=== PATIENT | female | born 1950 | race Caucasian/White ===

== ENCOUNTER 2016-08-12 08:00 | Outpatient (CLI) | payer MEDICARE, MEDICAID | END 2016-08-12 08:01 | disposition home or self-care (01) | DX: Z79.899 Other long term (current) drug therapy (principal) ==

== ENCOUNTER 2016-10-05 09:13 | Outpatient (CLI) | payer MEDICARE, MEDICAID | END 2016-10-05 09:14 | disposition home or self-care (01) | DX: N39.0 Urinary tract infection, site not specified (principal) ==

== ENCOUNTER 2016-11-24 13:48 | Outpatient (CLI) | payer MEDICARE, MEDICAID ==
[2016-11-24 19:27] LABS: BILIRUBIN,URINE NEGATIVE (NEGATIVE); PH,URINE 5.5 PH (5.0-7.5)
[2016-11-24 19:42] LABS: UR CULTURE IF IND INDICATED
== END 2016-11-24 13:49 | disposition home or self-care (01) ==
LOC: LAB.R 13:48
PROVIDERS: ATTEND Nurse Practitioner Gerontology
DX: N39.0 Urinary tract infection, site not specified (principal)
CPT/HCPCS: 81001; 87077; 87086

== ENCOUNTER 2017-05-19 08:00 | Outpatient (CLI) | payer MEDICARE, MEDICAID ==
[2017-05-19 19:15] LABS: BILIRUBIN,TOTAL 0.3 mg/dL (0.2-1.0); BUN - BLOOD UREA NITROGEN 23 mg/dL (6-20); CALCIUM 8.9 mg/dL (8.5-10.3); CARBON DIOXIDE - CO2 27 mmol/L (21-32); CHLORIDE 103 mmol/L (101-111); CHOL/HDL RATIO 4.2 (<4.4); CHOLESTEROL 167 mg/dL; CREATININE 0.8 mg/dL (0.4-1.0); GFR - MDRD 72 (>89); GLUCOSE 76 mg/dL (70-100); HDL CHOLESTEROL 40 mg/dL; LDL/HDL RATIO 2.5 (<4.4); POTASSIUM 4.3 mmol/L (3.5-5.0); SODIUM 137 mmol/L (135-145); TOTAL PROTEIN 6.8 g/dL (6.7-8.2); TRIGLYCERIDES 130 mg/dL; VLDL CHOLESTEROL 26 mg/dL
[2017-05-20 08:27] LABS: BASOPHILS % (AUTO) 0.5 %; EOSINOPHILS % (AUTO) 0.7 %; HCT - HEMATOCRIT 35.7 % (37.0-47.0); LYMPHOCYTES # (AUTO) 2.5 10^3/uL (1.5-3.5); LYMPHOCYTES % (AUTO) 34.5 %; MEAN CORPUSCULAR HEMOGLOBIN 32.3 pg (27.0-31.0); MEAN CORPUSCULAR HGB CONC 33.7 g/dL (32.0-36.0); MEAN CORPUSCULAR VOLUME 95.6 fL (81.0-99.0); MEAN PLATELET VOLUME 8.3 fL (7.9-10.8); MONOCYTES # (AUTO) 0.5 10^3/uL (0.0-1.0); NEUTROPHILS # (AUTO) 4.1 10^3/uL (1.5-6.6); NEUTROPHILS % (AUTO) 57.3 %; RED BLOOD COUNT 3.73 10^6/uL (4.20-5.40); RED CELL DISTRIBUTION WIDTH 15.1 % (12.0-15.0); UNCORRECTED WHITE BLOOD COUNT 7.2 x10^3/uL; WHITE BLOOD COUNT 7.2 x10^3/uL (4.8-10.8)
== END 2017-05-19 08:01 | disposition home or self-care (01) ==
LOC: LAB.N 08:00
PROVIDERS: ATTEND Nurse Practitioner Gerontology
DX: E78.5 Hyperlipidemia, unspecified (principal); E03.9 Hypothyroidism, unspecified
CPT/HCPCS: 36415; 80053; 80061; 84443; 85025

== ENCOUNTER 2017-06-08 18:32 | Emergency (ER) | payer MEDICARE, MEDICAID ==
[2017-06-08 18:44] VITALS: BP 150/82
[2017-06-08] MEDS ORDERED: TETANUS/DIPHTHERIA/PERTUSSIS 0.5 ML SYRINGE IM ONE ×2 (18:50→19:05)
[2017-06-08] MEDS ORDERED: IBUPROFEN 600 MG TABLET PO STA (18:50)
[2017-06-08] MEDS ORDERED: AMOX/CLAV 875 MG/125 MG TABLET PO STA (18:50)
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
[2017-06-08] MEDS ORDERED: IBUPROFEN 600 MG TABLET PO ONE (19:05)
[2017-06-08] MEDS ORDERED: AMOX/CLAV 875 MG/125 MG TABLET PO ONE (19:05)
== END 2017-06-08 19:15 | disposition home or self-care (01) ==
LOC: ED 18:32
DX: S51.851A Open bite of right forearm, initial encounter (principal); S40.021A Contusion of right upper arm, initial encounter; W50.3XXA Accidental bite by another person, initial encounter; Y92.009 Unspecified place in unspecified non-institutional (private) residence as the place of occurrence of the external cause; Z23 Encounter for immunization; I10 Essential (primary) hypertension; E03.9 Hypothyroidism, unspecified
CPT/HCPCS: 90471; 90715; 99283; A9270

== ENCOUNTER 2017-06-23 08:00 | Outpatient (CLI) | payer MEDICARE, MEDICAID | END 2017-06-23 23:59 | disposition home or self-care (01) | LOC: LAB.R 08:00 | PROVIDERS: ATTEND Nurse Practitioner Gerontology | DX: N39.0 Urinary tract infection, site not specified (principal) | CPT/HCPCS: 87086 ==

== ENCOUNTER 2017-10-06 11:15 | Emergency (ER) | payer MEDICARE, MEDICAID ==
[2017-10-06 11:20] VITALS: BP 143/74
[2017-10-06] MEDS ORDERED: AMOXICILLIN 250 MG CAPSULE PO STA (13:10)
[2017-10-06] MEDS ORDERED: DEXAMETHASONE 10 MG/ML VIAL PO STA (13:10)
--- NOTE | 2017-10-06 13:12 | ED Physician Documentation ---
History of Present Illness - Stated complaint Stated Complaint: MOUTH PX - Chief complaint Chief Complaint: Heent - Additonal information Additional information: hx from pt caregiver 67 f has DD and thus caregivers extensive dental decay - has ot been in to see dentist 2/2 insurance and anesthesia issues today noted to have swelling to right lower jaw no noted fever Review of Systems Constitutional: denies: Fever Throat: reports: Dental pain / toothache (swelling) PD PAST MEDICAL HISTORY - Past Medical History Cardiovascular: Hypertension Respiratory: None Neuro: Other Endocrine/Autoimmune: HyPOthyroidism GI: None : Incontinence HEENT: None Psych: Anxiety Musculoskeletal: Osteoarthritis Derm: None - Past Surgical History Past Surgical History: No - Present Medications Home Medications: Ambulatory Orders Medication Instructions Recorded Confirmed Ascorbic Acid [Vitamin C] 25 mg PO BID 04/09/14 06/08/17 Cholecalciferol (Vitamin D3) 1,000 units PO DAILY 04/09/14 06/08/17 [Vitamin D] Divalproex Sodium [Depakote ER] 500 mg PO BID 04/09/14 06/08/17 Levothyroxine [Synthroid] 150 mcg PO DAILY 04/09/14 06/08/17 Lovastatin [Altoprev] 20 mg PO DAILY 04/09/14 06/08/17 Metronidazole [Metrocream] 1 applic TOP BID PRN 04/09/14 06/08/17 QUEtiapine [SEROquel] 25 mg PO BID 04/09/14 06/08/17 Sertraline [Zoloft] 100 mg PO DAILY 04/09/14 06/08/17 Amoxicillin 500 mg PO Q8H #30 capsule 10/06/17 Aspirin 81 mg PO DAILY 10/06/17 Docusate Sodium 100 mg PO BID 10/06/17 Loperamide [Imodium] 2 mg PO PRN 10/06/17 Potassium Chloride [Micro-K] 10 meq PO DAILY 10/06/17 diphenhydrAMINE [Benadryl] PRN 10/06/17 guaiFENesin [Guaifenesin] PRN 10/06/17 hydrOXYzine pamoate [Hydroxyzine 25 mg PO TID PRN 10/06/17 Pamoate] - Allergies Allergies/Adverse Reactions: Allergies Allergy/AdvReac Type Severity Reaction Status Date / Time carbamazepine [From Tegretol] Allergy Unknown Verified 10/06/17 11:47 multivitamins Allergy Unknown Uncoded 10/06/17 11:47 - Social History Does the pt smoke?: No Smoking Status: Never smoker Does the pt drink ETOH?: No Does the pt have substance abuse?: No - Immunizations Immunizations are current?: Yes - POLST Patient has POLST: No PD ED PE NORMAL - Vitals Vital signs reviewed: Yes - HEENT HEENT: Other (extensive decar somne teeth eroded to gum line, all discolored and balck, focal swellign and tender to R lower 1st molar region, no submandibular swelling or neck swelling, managing secretions fine) - Cardiac Cardiac: RRR - Respiratory Respiratory: No respiratory distress, Clear bilaterally - Derm Derm: Normal color Results - Vitals Vitals: Vital Signs - 24 hr 10/06/17 11:17 Temperature 36.4 C L Heart Rate 88 Respiratory 17 Rate Blood Pressure 143/74 H O2 Saturation 99 Oxygen O2 Source Room air Departure - Departure Disposition: 01 Home, Self Care Clinical Impression: Dental abscess Condition: Good Instructions: ED Abscess Dental Prescriptions: Amoxicillin 500 mg PO Q8H #30 capsule Comments: The steroid given in the ED will decrease the swelling. Take the antibiotic as prescribed Follow up with your dentist as schedule
== END 2017-10-06 13:30 | disposition home or self-care (01) ==
LOC: ED 11:15
DX: K04.7 Periapical abscess without sinus (principal)
CPT/HCPCS: 99283; A9270

== ENCOUNTER 2017-11-17 08:00 | Outpatient (CLI) | payer MEDICARE, MEDICAID ==
[2017-11-17 19:35] LABS: ALBUMIN 3.3 g/dL (3.2-5.5); ALBUMIN/GLOBULIN RATIO 0.8 (1.0-2.2); ALKALINE PHOSPHATASE 63 IU/L (42-121); ALT ALANINE AMINOTRANSFERASE 15 IU/L (10-60); AST ASPARTATE AMINOTRANSFERASE 26 IU/L (10-42); BILIRUBIN,TOTAL 0.6 mg/dL (0.2-1.0); BUN - BLOOD UREA NITROGEN 27 mg/dL (6-20); CARBON DIOXIDE - CO2 29 mmol/L (21-32); CHLORIDE 104 mmol/L (101-111); CREATININE 0.7 mg/dL (0.4-1.0); GFR - MDRD 84 (>89); GLUCOSE 93 mg/dL (70-100); SODIUM 140 mmol/L (135-145); TOTAL PROTEIN 7.2 g/dL (6.7-8.2); VALPROIC ACID (DEPAKOTE) 86.9 ug/mL
== END 2017-11-17 08:01 | disposition home or self-care (01) ==
LOC: LAB.N 08:00
PROVIDERS: ATTEND Nurse Practitioner Gerontology
DX: Z79.899 Other long term (current) drug therapy (principal)
CPT/HCPCS: 36415; 80053; 80164

== ENCOUNTER 2018-09-05 11:31 | Emergency (ER) | payer MEDICARE, MEDICAID ==
--- NOTE | 2018-09-05 12:49 | ED Physician Documentation ---
PD HPI LOWER EXT INJURY - Stated complaint Stated Complaint: L TOE INJ - Chief complaint Chief Complaint: Ext Problem - History obtained from History obtained from: Patient, Caregiver - History of Present Illness PD HPI LOW EXT INJURY LOCATION: Left (She stomped her left little toe sometime in the last 48 hours she says. No actually sought but now it is painful. History is limited because of developmental delay.) Review of Systems Unable to obtain: Confused PD PAST MEDICAL HISTORY - Past Medical History Cardiovascular: Hypertension Respiratory: None Neuro: Seizure disorder, Tremors Endocrine/Autoimmune: HyPOthyroidism GI: None : Incontinence HEENT: None Psych: Anxiety Musculoskeletal: Osteoarthritis Derm: None Other Past Medical History: Developmentally disabled. - Past Surgical History Past Surgical History: No - Present Medications Home Medications: Ambulatory Orders Medication Instructions Recorded Confirmed Ascorbic Acid [Vitamin C] 25 mg PO BID 04/09/14 07/04/18 Cholecalciferol (Vitamin D3) 1,000 units PO DAILY 04/09/14 07/04/18 [Vitamin D] Divalproex Sodium [Depakote ER] 500 mg PO BID 04/09/14 07/04/18 Levothyroxine [Synthroid] 50 mcg PO DAILY 04/09/14 07/04/18 Lovastatin [Altoprev] 20 mg PO DAILY 04/09/14 07/04/18 Sertraline [Zoloft] 200 mg PO DAILY 04/09/14 07/04/18 Aspirin 81 mg PO DAILY 10/06/17 07/04/18 Docusate Sodium 100 mg PO BID 10/06/17 07/04/18 Potassium Chloride [Micro-K] 10 meq PO DAILY 10/06/17 07/04/18 Acetaminophen [Tylenol] 2 tab PO Q6H PRN #30 capsule 09/05/18 - Allergies Allergies/Adverse Reactions: Allergies Allergy/AdvReac Type Severity Reaction Status Date / Time carbamazepine [From Tegretol] Allergy Unknown Verified 09/05/18 11:59 multivitamins Allergy Unknown Uncoded 09/05/18 11:59 - Social History Does the pt smoke?: No Smoking Status: Never smoker Does the pt drink ETOH?: No Does the pt have substance abuse?: No - Immunizations Immunizations are current?: Yes - POLST Patient has POLST: No PD ED PE NORMAL - Vitals Vital signs reviewed: Yes - General General: Other (She is alert and pleasant with poor eye contact and clear develop mental delay.) - Extremities Extremities: Other (The left small toe is tender at the tip with a 100% subungual hematoma) Results - Vitals Vitals: Vital Signs - 24 hr 09/05/18 11:36 Temperature 36 C L Heart Rate 83 Respiratory 18 Rate Blood Pressure 154/69 H O2 Saturation 100 Oxygen O2 Source Room air Procedures - General procedure General procedure: The left small toe nail was trephinated using electrocautery with profuse serous and bloody fluid released. PD MEDICAL DECISION MAKING - ED course ED course: This is a 68-year-old woman with distal small toe fracture of the left foot with large subungual hematoma that was trephinated and she was inocencia taped and placed in a fracture shoe. Departure - Departure Disposition: 01 Home, Self Care Clinical Impression: Toe fracture, left Qualifiers: Encounter type: initial encounter Toe: lesser toe Fracture type: closed Phalanx: distal Fracture alignment: nondisplaced Qualified Code(s): S92.535A - Nondisplaced fracture of distal phalanx of left lesser toe(s), initial encounter for closed fracture Condition: Good Record reviewed to determine appropriate education?: Yes Instructions: ED Fx Toe Closed Prescriptions: Acetaminophen [Tylenol] 2 tab PO Q6H PRN #30 capsule PRN Reason: Pain Comments: Keep the toes inocencia taped and in the special shoe when up and around. She does not need to wear that in bed. Follow-up with your doctor in a week. The toenail may fall off. Your blood pressure was elevated today on check into the emergency department. This does not mean that you have hypertension, it is a common phenomenon to come to the emergency department and have elevated blood pressure. I recommend that you see your primary care physician within the week to have it rechecked when y ou are feeling better.
--- NOTE | 2018-09-05 13:27 | XRAY Report ---
Reason: red/painful left pinky toe Procedure Date: 09/05/2018 Accession Number: [id number] / [id number] Procedure: XR - Toe(s) LT CPT Code: FULL RESULT: EXAM: LEFT FIFTH TOE RADIOGRAPHY EXAM DATE: 09/05/2018 12:43 PM. CLINICAL HISTORY: Red/painful left pinky toe. COMPARISON: None. TECHNIQUE: 3 views. FINDINGS: Bones: No fracture or focal bony destruction. Joints: No dislocation. Soft Tissues: No radiodense foreign body or soft tissue gas. IMPRESSION: Negative. RADIA
[2018-09-05 15:08] VITALS: BP 132/70
== END 2018-09-05 13:11 | disposition home or self-care (01) ==
LOC: ED 11:31
DX: S92.535A Nondisplaced fracture of distal phalanx of left lesser toe(s), initial encounter for closed fracture (principal); S90.222A Contusion of left lesser toe(s) with damage to nail, initial encounter; W22.8XXA Striking against or struck by other objects, initial encounter; Y92.199 Unspecified place in other specified residential institution as the place of occurrence of the external cause; I10 Essential (primary) hypertension; Z79.82 Long term (current) use of aspirin
CPT/HCPCS: 11730; 11740; 73660; 99283

== ENCOUNTER 2018-09-12 08:00 | Outpatient (CLI) | payer MEDICARE, MEDICAID ==
[2018-09-12 20:36] LABS: BASOPHILS % (AUTO) 0.6 %; EOSINOPHILS % (AUTO) 0.5 %; HGB - HEMOGLOBIN 11.8 g/dL (12.0-16.0); LYMPHOCYTES # (AUTO) 2.1 10^3/uL (1.5-3.5); LYMPHOCYTES % (AUTO) 29.3 %; MEAN CORPUSCULAR HEMOGLOBIN 32.2 pg (27.0-31.0); MEAN CORPUSCULAR VOLUME 97.8 fL (81.0-99.0); MEAN PLATELET VOLUME 7.7 fL (7.9-10.8); MONOCYTES # (AUTO) 0.6 10^3/uL (0.0-1.0); MONOCYTES % (AUTO) 8.2 %; NEUTROPHILS # (AUTO) 4.4 10^3/uL (1.5-6.6); NEUTROPHILS % (AUTO) 61.4 %; PLT - PLATELET COUNT 143 10^3/uL (130-450); RED BLOOD COUNT 3.65 10^6/uL (4.20-5.40); RED CELL DISTRIBUTION WIDTH 16.1 % (12.0-15.0); WHITE BLOOD COUNT 7.2 x10^3/uL (4.8-10.8)
[2018-09-12 21:00] LABS: ALBUMIN 3.4 g/dL (3.2-5.5); ALKALINE PHOSPHATASE 53 IU/L (42-121); ALT ALANINE AMINOTRANSFERASE 16 IU/L (10-60); AST ASPARTATE AMINOTRANSFERASE 33 IU/L (10-42); BILIRUBIN,TOTAL 0.6 mg/dL (0.2-1.0); BUN - BLOOD UREA NITROGEN 26 mg/dL (6-20); CARBON DIOXIDE - CO2 24 mmol/L (21-32); CHLORIDE 101 mmol/L (101-111); CHOL/HDL RATIO 4.8 (<4.4); CHOLESTEROL 186 mg/dL; CREATININE 0.7 mg/dL (0.4-1.0); GFR - MDRD 83 (>89); GLUCOSE 101 mg/dL (70-100); HDL CHOLESTEROL 39 mg/dL; LDL CHOLESTEROL,CALCULATED 106 mg/dL; LDL/HDL RATIO 2.7 (<4.4); SODIUM 138 mmol/L (135-145); TOTAL PROTEIN 6.8 g/dL (6.7-8.2); VLDL CHOLESTEROL 41 mg/dL
== END 2018-09-12 23:59 | disposition home or self-care (01) ==
LOC: LAB.N 08:00
PROVIDERS: ATTEND Nurse Practitioner Gerontology
DX: E78.5 Hyperlipidemia, unspecified (principal)
CPT/HCPCS: 36415; 80053; 80061; 83721; 84443; 85025

== ENCOUNTER 2018-12-19 09:39 | Outpatient (CLI) | payer MEDICARE, MEDICAID | END 2018-12-19 09:40 | disposition critical access hospital (66) | LOC: EMS 09:39 | PROVIDERS: ATTEND Surgery | DX: M25.512 Pain in left shoulder (principal); R53.1 Weakness; R03.1 Nonspecific low blood-pressure reading | CPT/HCPCS: A0425; A0427 ==

== ENCOUNTER 2018-12-19 09:51 | Inpatient (IN) | payer MEDICARE, MEDICAID ==
--- NOTE | 2018-12-19 09:58 | ED Physician Documentation ---
PD HPI UPPER EXT INJURY - Stated complaint Stated Complaint: FALL - Chief complaint Chief Complaint: Trauma Ext - History obtained from History obtained from: Patient, EMS - History of Present Illness Location: Left, Shoulder Type of injury: Fall Where injury occurred: Home (skilled nursing) Timing - onset: Last night Timing - details: Abrupt onset, Still present Worsened by: Moving, Palpating Associated symptoms: Discolored. No: Weakness, Numbness Contributing factors: No: Anticoagulated Similar symptoms before: Has not had sx before Recently seen: Not recently seen Review of Systems Unable to obtain: Other (cognitive deficit) Constitutional: reports: Fatigue. denies: Fever Nose: denies: Rhinorrhea / runny nose, Congestion Throat: denies: Sore throat Respiratory: denies: Cough GI: denies: Vomiting, Diarrhea : reports: Incontinent (chronic) Skin: reports: Other (bruising left shoulder). denies: Rash, Lesions Musculoskeletal: denies: Neck pain, Back pain Neurologic: reports: Generalized weakness (for few days) PD PAST MEDICAL HISTORY - Past Medical History Cardiovascular: Hypertension Respiratory: None Neuro: Seizure disorder, Tremors Endocrine/Autoimmune: HyPOthyroidism GI: None : Incontinence HEENT: None Psych: Anxiety Musculoskeletal: Osteoarthritis Derm: None - Past Surgical History Past Surgical History: No - Present Medications Home Medications: Ambulatory Orders Medication Instructions Recorded Confirmed Cholecalciferol (Vitamin D3) 1,000 units PO DAILY 04/09/14 12/19/18 [Vitamin D] Lovastatin [Altoprev] 20 mg PO DAILY PM 04/09/14 12/19/18 Docusate Sodium 100 mg PO BID 10/06/17 12/19/18 Potassium Chloride [Micro-K] 10 meq PO DAILY 10/06/17 12/19/18 Acetaminophen [Tylenol] 2 tab PO Q6H PRN #30 capsule 09/05/18 12/19/18 Ascorbic Acid [Vitamin C] 500 mg PO BID 12/19/18 12/19/18 Aspirin [Adult Low Dose Aspirin EC] 81 mg PO DAILY 12/19/18 12/19/18 Divalproex [Karin Samuel] 1,000 mg PO DAILY PM 12/19/18 12/19/18 Divalproex [Karin Samuel] 500 mg PO DAILY 12/19/18 12/19/18 Levothyroxine [Synthroid] 50 mcg PO DAILY 12/19/18 12/19/18 QUEtiapine [SEROquel] 12.5 mg PO DAILY 12/19/18 12/19/18 QUEtiapine [SEROquel] 50 mg PO DAILY PM 12/19/18 12/19/18 Sertraline [Zoloft] 200 mg PO DAILY 12/19/18 12/19/18 hydrOXYzine HCl [Hydroxyzine HCl] 25 mg PO TID PRN 12/19/18 12/19/18 - Allergies Allergies/Adverse Reactions: Allergies Allergy/AdvReac Type Severity Reaction Status Date / Time carbamazepine [From Tegretol] Allergy Unknown Verified 09/05/18 11:59 multivitamins Allergy Unknown Uncoded 09/05/18 11:59 - Social History Does the pt smoke?: No Smoking Status: Never smoker Does the pt drink ETOH?: No Does the pt have substance abuse?: No - Immunizations Immunizations are current?: Yes - POLST Patient has POLST: No PD ED PE NORMAL - Vitals Vital signs reviewed: Yes - General General: No: Well developed/nourished (frail and thin) - HEENT HEENT: Atraumatic, Pharynx benign - Neck Neck: Supple, no meningeal sign, No bony TTP, No adenopathy - Cardiac Cardiac: RRR (mild tachycardia), No murmur - Respiratory Respiratory: Clear bilaterally, Other (no chestwall tenderness) - Abdomen Abdomen: Normal bowel sounds, Soft, Non tender, Non distended - Female Female : Deferred - Rectal Rectal: Deferred - Back Back: No spinal TTP, Other (some CVA tenderness on right. ) - Derm Derm: Warm and dry. No: Normal color (pale) - Extremities Extremities: No edema, No calf tenderness / cord, Other (Left hip has some tenderness laterally and some pain with rotation of the hip. There is no impaction tenderness. The left shoulder has considerable tenderness with attempted range of motion. There is some bruising noted anteriorly on the shoulder which is a dark purple color consistent with newer bruising. The elbow and wrist are not tender. The collarbone is not tender. 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 and has sensation in the arm and hand.) - Neuro Neuro: Alert and oriented X 3, No motor deficit, Normal speech Results - Vitals Vitals: Vital Signs - 24 hr 12/19/18 12/19/18 12/19/18 09:54 11:56 12:36 Temperature 36.3 C L Heart Rate 107 H 99 Respiratory 18 Rate Blood Pressure 109/65 112/67 O2 Saturation 98 96 Oxygen O2 Source Room air - Labs Labs: Laboratory Tests 12/19/18 12/19/18 12/19/18 10:33 10:33 11:00 WBC RBC Hgb Hct MCV MCH MCHC RDW Plt Count MPV Reticulocyte % (Auto) Neut # (Auto) Lymph # (Auto) [place] # (Auto) Eos # (Auto) Baso # (Auto) Absolute Nucleated RBC Nucleated RBC % Manual Slide Review WBC Morphology Platelet Estimate Platelet Morphology RBC Morph Micro Appear Absolute Retic Sodium 136 Potassium 4.6 Chloride 101 Carbon Dioxide 18 L Anion Gap 17.0 H BUN 41 H Creatinine 1.5 H Estimated GFR (MDRD) 35 L Glucose 136 H Lactic Acid Calcium 8.2 L Magnesium 1.8 Iron TIBC % Saturation Transferrin Total Bilirubin 0.3 AST 37 ALT 14 Alkaline Phosphatase 42 Lactate Dehydrogenase Total Protein 5.7 L Albumin 2.7 L Globulin 3.0 Albumin/Globulin Ratio 0.9 L Lipase 26 Urine Color YELLOW Urine Clarity HAZY Urine pH 6.0 Ur Specific [place] 1.020 Urine Protein 30 H Urine Glucose (UA) NEGATIVE Urine Ketones TRACE Urine Occult Blood NEGATIVE Urine Nitrite POSITIVE H Urine Bilirubin NEGATIVE Urine Urobilinogen 2 H Ur Leukocyte Esterase SMALL H Urine RBC None Seen Urine WBC 4-5 Urine WBC Clumps PRESENT Ur Squamous Epith Cells RARE Squamous Urine Bacteria Moderate H Urine Casts 0-2 Hyaline Casts Urine Mucus Few Strands Ur Microscopic Review INDICATED Urine Culture Comments INDICATED Last Dose Date 12/19/18 Last Dose Time 0800 Valproic Acid 39.6 12/19/18 12/19/18 12/19/18 11:14 11:14 11:14 WBC 17.0 H RBC 2.60 L 2.62 L Hgb 8.4 L Hct 25.4 L MCV 97.8 MCH 32.1 H MCHC 32.9 RDW 14.8 Plt Count 201 MPV 7.4 L Reticulocyte % (Auto) 5.88 H Neut # (Auto) 12.1 H Lymph # (Auto) 2.4 [place] # (Auto) 2.4 H Eos # (Auto) 0.0 Baso # (Auto) 0.1 Absolute Nucleated RBC 0.02 Nucleated RBC % 0.1 Manual Slide Review Indicated WBC Morphology NORMAL APPEARANCE Platelet Estimate NORMAL (130-450,000) Platelet Morphology NORMAL APPEARANCE RBC Morph Micro Appear OVALOCYTES Absolute Retic 0.154 H Sodium Potassium Chloride Carbon Dioxide Anion Gap BUN Creatinine Estimated GFR (MDRD) Glucose Lactic Acid 5.7 H* Calcium Magnesium Iron TIBC % Saturation Transferrin Total Bilirubin AST ALT Alkaline Phosphatase Lactate Dehydrogenase Total Protein Albumin Globulin Albumin/Globulin Ratio Lipase Urine Color Urine Clarity Urine pH Ur Specific [place] Urine Protein Urine Glucose (UA) Urine Ketones Urine Occult Blood Urine Nitrite Urine Bilirubin Urine Urobilinogen Ur Leukocyte Esterase Urine RBC Urine WBC Urine WBC Clumps Ur Squamous Epith Cells Urine Bacteria Urine Casts Urine Mucus Ur Microscopic Review Urine Culture Comments Last Dose Date Last Dose Time Valproic Acid 12/19/18 12/19/18 11:14 11:15 WBC RBC Hgb Hct MCV MCH MCHC RDW Plt Count MPV Reticulocyte % (Auto) Neut # (Auto) Lymph # (Auto) [place] # (Auto) Eos # (Auto) Baso # (Auto) Absolute Nucleated RBC Nucleated RBC % Manual Slide Review WBC Morphology Platelet Estimate Platelet Morphology RBC Morph Micro Appear Absolute Retic Sodium Potassium Chloride Carbon Dioxide Anion Gap BUN Creatinine Estimated GFR (MDRD) Glucose Lactic Acid Calcium Magnesium Iron 74 TIBC 239 L % Saturation 31 Transferrin 171 L Total Bilirubin AST ALT Alkaline Phosphatase Lactate Dehydrogenase 157 Total Protein Albumin Globulin Albumin/Globulin Ratio Lipase Urine Color Urine Clarity Urine pH Ur Specific [place] Urine Protein Urine Glucose (UA) Urine Ketones Urine Occult Blood Urine Nitrite Urine Bilirubin Urine Urobilinogen Ur Leukocyte Esterase Urine RBC Urine WBC Urine WBC Clumps Ur Squamous Epith Cells Urine Bacteria Urine Casts Urine Mucus Ur Microscopic Review Urine Culture Comments Last Dose Date Last Dose Time Valproic Acid - Rads (name of study) left shoulder Radiology: Prelim report reviewed, EMP read contemporaneously (Comminuted impaction fracture of the left humeral neck. There is also either inferior dislocation or significant subluxation of the ball as well.), See rad report left hip Radiology: Prelim report reviewed (No noted fractures.), EMP read contemporaneously, See rad report PD MEDICAL DECISION MAKING - ED course Complexity details: reviewed results, re-evaluated patient, considered differential (Will look for cause of the transient hypotension, general weakness that led to the fall. ), d/w patient, d/w science consultant (Dr. Bustamante, who came to ER and did manipulation of the shoulder subluxation/dislocation and concluded that it was subluxation and not true dislocation. To use sling. ) Departure - Departure Disposition: 66 [facility] DC/Xfer Clinical Impression: UTI (urinary tract infection), Generalized weakness Sepsis Qualifiers: Sepsis type: sepsis due to unspecified organism Qualified Code(s): A41.9 - Sepsis, unspecified organism Fall Qualifiers: Encounter type: initial encounter Qualified Code(s): W19.XXXA - Unspecified fall, initial encounter Fracture dislocation of shoulder joint Qualifiers: Encounter type: initial encounter Fracture type: closed Laterality: left Qualified Code(s): S42.92XA - Fracture of left shoulder girdle, part unspecified, initial encounter for closed fracture Condition: Stable Record reviewed to determine appropriate education?: Yes Discharge Date/Time: 12/19/18 14:05
[2018-12-19] MEDS ORDERED: SODIUM CHLORIDE 0.9% 1,000 ML IV ONE ×2 (10:13→11:44)
[2018-12-19] MEDS ORDERED: MORPHINE 2 MG/ML CARPUJECT IVP STA ×3 (10:14→13:44)
[2018-12-19] MEDS ORDERED: ONDANSETRON 4 MG/2 ML VIAL IVP STA (10:14)
[2018-12-19 10:50] LABS: ALBUMIN 2.7 g/dL (3.2-5.5); ALBUMIN/GLOBULIN RATIO 0.9 (1.0-2.2); BILIRUBIN,TOTAL 0.3 mg/dL (0.2-1.0); CALCIUM 8.2 mg/dL (8.5-10.3); CREATININE 1.5 mg/dL (0.4-1.0); MAGNESIUM 1.8 mg/dL (1.7-2.8); TOTAL PROTEIN 5.7 g/dL (6.7-8.2)
[2018-12-19 11:09] LABS: VALPROIC ACID (DEPAKOTE) 39.6 ug/mL
[2018-12-19 11:21] LABS: BILIRUBIN,URINE NEGATIVE (NEGATIVE); GLUCOSE, URINE (UA) NEGATIVE (NEGATIVE); KETONES,URINE (UA) TRACE mg/dL (NEGATIVE); LEUKOCYTE ESTERASE, URINE SMALL (NEGATIVE); NITRITE,URINE POSITIVE (NEGATIVE); OCCULT BLOOD,URINE NEGATIVE (NEGATIVE); PROTEIN,URINE 30 mg/dL (NEGATIVE); UROBILINOGEN,URINE 2 E.U./dL (NORMAL)
[2018-12-19] MEDS ORDERED: KETOROLAC 15 MG/ML VIAL IVP STA (11:21)
[2018-12-19 11:22] LABS: BASOPHILS # (AUTO) 0.1 10^3/uL (0.0-0.1); BASOPHILS % (AUTO) 0.3 %; HGB - HEMOGLOBIN 8.4 g/dL (12.0-16.0); LYMPHOCYTES # (AUTO) 2.4 10^3/uL (1.5-3.5); LYMPHOCYTES % (AUTO) 14.2 %; MEAN CORPUSCULAR HEMOGLOBIN 32.1 pg (27.0-31.0); MEAN CORPUSCULAR HGB CONC 32.9 g/dL (32.0-36.0); MEAN CORPUSCULAR VOLUME 97.8 fL (81.0-99.0); MEAN PLATELET VOLUME 7.4 fL (7.9-10.8); MONOCYTES # (AUTO) 2.4 10^3/uL (0.0-1.0); MONOCYTES % (AUTO) 14.3 %; NEUTROPHILS # (AUTO) 12.1 10^3/uL (1.5-6.6); NEUTROPHILS % (AUTO) 71.2 %; PLT - PLATELET COUNT 201 10^3/uL (130-450); RED CELL DISTRIBUTION WIDTH 14.8 % (12.0-15.0)
--- NOTE | 2018-12-19 11:27 | XRAY Report ---
Reason: fall Procedure Date: 12/19/2018 Accession Number: [id number] / [id number] Procedure: XR - Hip w/Pelvis 2-3V LT CPT Code: FULL RESULT: EXAM: LEFT HIP RADIOGRAPHY EXAM DATE: 12/19/2018 10:40 AM. CLINICAL HISTORY: Left hip pain. COMPARISON: None. TECHNIQUE: 2 views. FINDINGS: Bones: Normal. No fractures or bone lesion. Joints: Normal. No dislocation. The hip joint space is preserved. Soft Tissues: Normal. No soft tissue swelling. IMPRESSION: No acute findings. RADIA
--- NOTE | 2018-12-19 11:29 | XRAY Report ---
Reason: fall with left shoulder pain and bruising Procedure Date: 12/19/2018 Accession Number: [id number] / [id number] Procedure: XR - Shoulder 3 View LT CPT Code: FULL RESULT: EXAM: LEFT SHOULDER RADIOGRAPHY EXAM DATE: 12/19/2018 10:40 AM. CLINICAL HISTORY: Left shoulder pain. COMPARISON: None. TECHNIQUE: 3 views. FINDINGS: Bones: Impacted mildly displaced humeral neck fracture is seen. Remainder osseous structures are intact. Generalized osteopenia seen. Joints: Inferior glenohumeral dislocation versus severe subluxation is seen. Normal alignment of the chromic navicular joint. Soft tissues: The visualized hemithorax is unremarkable. No soft tissue swelling. IMPRESSION: 1. Impacted mildly displaced left humeral neck fracture. 2. Inferior glenohumeral dislocation versus severe subluxation, in part due to underlying hemarthrosis. RADIA
[2018-12-19 11:34] LABS: CLARITY,URINE HAZY (CLEAR)
[2018-12-19 11:35] LABS: BACTERIA,URINE Moderate /HPF (None Seen); RBC,URINE None Seen /HPF (0-5); SQUAMOUS EPITHELIAL CELL,UR RARE Squamous (<= Few); WBC CLUMPS,URINE PRESENT
[2018-12-19 11:36] LABS: CASTS, URINE 0-2 Hyaline Casts /LPF; MUCUS,URINE Few Strands
[2018-12-19] MEDS ORDERED: cefTRIAXone 1 GM VIAL IVP STA (11:44)
[2018-12-19 11:52] LABS: PLATELET ESTIMATE, MANUAL NORMAL (130-450,000) (NORMAL); PLATELET MORPHOLOGY NORMAL APPEARANCE (NORMAL)
[2018-12-19] MEDS ORDERED: ONDANSETRON 4 MG/2 ML VIAL IVP PRN (12:43)
--- NOTE | 2018-12-19 12:47 | XRAY Report ---
Reason: post reduction Procedure Date: 12/19/2018 Accession Number: [id number] / [id number] Procedure: XR - Shoulder 2 View LT CPT Code: FULL RESULT: EXAM: LEFT SHOULDER RADIOGRAPHY EXAM DATE: 12/19/2018 12:21 PM. CLINICAL HISTORY: Post reduction. COMPARISON: SHOULDER 3 VIEW LT 12/19/2018 10:20 AM. TECHNIQUE: 2 views. FINDINGS: Bones: Comminuted left humeral head and neck fracture is again seen. Joints: Persistent marked left inferior subluxation/dislocation of the left humeral head is again seen in relation to the left glenoid. Degenerative changes of the left acromioclavicular joint. Soft tissues: The visualized hemithorax is unremarkable. No soft tissue swelling. IMPRESSION: 1. Persistent left glenohumeral joint inferior dislocation/marked subluxation compared to the earlier study from 12/19/2018 without significant change in position. 2. Comminuted left humeral head and neck fracture, unchanged. RADIA
[2018-12-19] MEDS ORDERED: SODIUM CHLORIDE 0.9% 1,000 ML IV SCH ×2 (13:00)
--- NOTE | 2018-12-19 13:52 | CONSULTATION NOTE ---
DATE OF SERVICE: 12/19/2018 Physician: Aramis Bustamante MD REFERRING PHYSICIAN: Dominic Garcia of the Emergency Room Department. CHIEF COMPLAINT: "My left shoulder hurts." HISTORY OF PRESENT ILLNESS: Patient is a 68-year-old, right-hand dominant, woman who is me ntally challenged and living in a care facility, who apparently had a fall by history in the last day or so. She presented to her caregiver with persistent pain and mild swelling to the left shoulder. Also, some early ecchymosis was noted. She was taken to the emergency room, where an evaluation inc luding x-rays show what appeared to be an impacted proximal humerus fracture on the left side with in feriorly subluxed humeral head almost to the point of a dislocation of the joint. Orthopedics is con sulted to see if any further treatment was indicated. On clinical examination, the patient does have some ecchymoses and swelling around shoulder, left side. On palpation, one can palpate what appears to be an inferior subluxation of the humeral head with a downsloping of the shoulder when compared t o the opposite side. Also, some mild motion to the shoulder is quite painful for the patient. She a ppears to be able to move her fingers and thumb spontaneously and sensation appeared to be intact dis tally. RADIOLOGY REPORT: Review of x-rays that were taken initially show an impacted proximal humerus fract ure in good alignment. It appears as if the patient has a significant inferior subluxation of the hu meral head. Does not appear as if the humeral head is locked in place in a subluxed position on the inferior glenoid edge. ASSESSMENT: Left nondominant impacted proximal humerus fracture with subluxation inferior of the gle nohumeral joint. PLAN: After morphine and Toradol IV sedation, a gentle manipulation of the shoulder was performed. Clinically, it appeared as if now the patient's shoulder was less painful. The contour of her left s houlder now appears to be nearly the same as the right side. It does not have the inferior subluxati on or down slope of the glenohumeral joint, as she had pre-manipulation. X-rays that were taken subsequently showed improvement in the glenohumeral joint. Fracture is not ch anged. The patient will go then into a sling for comfort and will followup as needed with the Orthopedic Cli karoline in about 1 week or so to check again on the position of the joint as well as the fracture alignme nt as well. Probably in about 1 week's time, if the patient is not too symptomatic, we will start on some therapy as well to minimize any post injury stiffness. TD: 12/19/2018 13:34
--- NOTE | 2018-12-19 13:53 | HISTORY & PHYSICAL EXAMINATION ---
Chief Complaint - Chief Complaint Chief Complaint: fall and left shoulder injury History of Present Illness - Admitted From Admitted From:: ER - History Obtained From History obtained from: caregiver Exam Limitations: developmental delay - History of Present Illness HPI Comment/Other: Ms. Braswell is a 68-yrs old female who is currently live at [facility], with a PMH significant for developmental delay, hypothyrodism, HTN, seizure disorder, arthritis, OCD, osteoporosis, anxiety, iron deficiency anemia, HLD, who present ER for evaluation of fall and left shoulder injury. pt can not provide any medical history because of her medical conditions. Pt's caregiver is at bedside, who help provide some informations. Caregiver report she took care of 4 people who are living at the same home, pt fell at the bathroom on yesterday and injury at left shoulder. She did not think pt had another injury. Pt was report increase weakness over the last several days. Upon examination, pt present left shoulder area bruising and swelling but without warm or tenderness. EMS reports pt had hypotensive at SBP 70. Pt was given 400 ml IVF of NS. Then pt was found to have 109/65. Left shoulder xray reveals impacted mild displaced left humeral neck fracture, inferior glenohumeral dislocation versus severe subluxation, in part due to underlying hemarthrosis. pt was found to have UTI in UA analysis. Pt's WBC was elevated to 17, lactic acid was 5.7, creatinine was 1.5 from 0.7 on 09/12/18. After hydration at ER, pt's BP is 112/67. pt is afebrile and hemodynamic stable now. Orthopedics was called for consultation of her shoulder injury. History - Past Medical History Cardiovascular: reports: Hypertension Respiratory: reports: None Neuro: reports: Seizure disorder, Tremors Endocrine/Autoimmune: reports: HyPOthyroidism GI: reports: None : reports: Incontinence HEENT: reports: None Psych: reports: Anxiety Musculoskeletal: reports: Osteoarthritis Derm: reports: None MRSA Hx?: No - Family & Social History Family History Comment/Other: pt has hx of developmental delay and aphasia, could not provide any family history information. - POLST Patient has POLST: No Meds/Allgy - Home Medications Home Medications: Ambulatory Orders Medication Instructions Recorded Confirmed Ascorbic Acid [Vitamin C] 25 mg PO BID 04/09/14 07/04/18 Cholecalciferol (Vitamin D3) 1,000 units PO DAILY 04/09/14 12/19/18 [Vitamin D] Lovastatin [Altoprev] 20 mg PO DAILY PM 04/09/14 12/19/18 Docusate Sodium 100 mg PO BID 10/06/17 12/19/18 Potassium Chloride [Micro-K] 10 meq PO DAILY 10/06/17 12/19/18 Acetaminophen [Tylenol] 2 tab PO Q6H PRN #30 capsule 09/05/18 Aspirin [Adult Low Dose Aspirin EC] 81 mg PO DAILY 12/19/18 12/19/18 Divalproex [Karin Samuel] 1,000 mg PO DAILY PM 12/19/18 12/19/18 Divalproex [Karin Samuel] 500 mg PO DAILY 12/19/18 12/19/18 Levothyroxine [Synthroid] 50 mcg PO DAILY 12/19/18 12/19/18 QUEtiapine [SEROquel] 12.5 mg PO DAILY 12/19/18 12/19/18 QUEtiapine [SEROquel] 50 mg PO DAILY PM 12/19/18 12/19/18 Sertraline [Zoloft] 200 mg PO DAILY 12/19/18 12/19/18 hydrOXYzine HCl [Hydroxyzine HCl] 25 mg PO TID PRN 12/19/18 12/19/18 - Allergies Allergies/Adverse Reactions: Allergies Allergy/AdvReac Type Severity Reaction Status Date / Time carbamazepine [From Tegretol] Allergy Unknown Verified 09/05/18 11:59 multivitamins Allergy Unknown Uncoded 09/05/18 11:59 Review of Systems - Other Findings Other Findings: pt has hx of developmental delay and aphasia, could not provide ROS Exam - Vital Signs Reviewed Vital Signs: Yes Vital Signs: Vital Signs x48h Temp Pulse Resp BP Pulse Ox 12/19/18 12:36 112/67 12/19/18 11:56 99 96 12/19/18 09:54 36.3 C L 107 H 18 109/65 98 - Physical Exam General Appearance: positive: No acute distress, Alert. negative: Lethargic Eyes Bilateral: positive: Normal inspection, PERRL, No lid inflammation, Conjunctivae nml ENT: positive: ENT inspection nml, Pharynx nml. negative: Purulent nasal drainage, Pharyngeal erythema, Oral lesions Neck: positive: Nml inspection, Thyroid nml, No JVD, Trachea midline. negative: Thyromegaly, Lymphadenopathy (R), Lymphadenopathy (L), Stiff neck, Swelling/bruising, Tracheal deviation Respiratory: positive: Chest non-tender, No respiratory distress, Breath sounds nml. negative: Wheezes, Rales, Rhonchi Cardiovascular: positive: Regular rate & rhythm, No murmur, No gallop. negative: Irregularly irregular, Extrasystoles, Tachycardia, Bradycardia, JVD present, Systolic murmur, Diastolic murmur Peripheral Pulses: positive: 2+ Abdomen: positive: Non-tender, No organomegaly, Nml bowel sounds, No distention. negative: Tenderness, Guarding, Rebound Back: positive: Nml inspection Skin: positive: Warm, Dry. negative: Cyanosis, Diaphoresis, Pallor Extremities: positive: Joint swelling. negative: Calf tenderness, Radha's sign/cords Neurologic/Psychiatric: negative: Facial droop, Slurred/abnml speech Sepsis Event Note (H) - Evaluation Current Stage of Sepsis: Sepsis Possible source of Sepsis: positive: Genitourinary - Sepsis Criteria Sepsis Criteria: Recorded Heart Rate greater than 90 bpm, WBC count greater than 12,000 or less than 4000, SBP less than 90 mmHg Conclusion/Plan - Problem List (1) Sepsis Conclusion/Plan: pt present hypotension at admission, lactic acid to 5.7, tachycardia at admission, UA reveals UTI, WBC was 17. treat with antibiotics Rocephin IVF of NS tele and vital monitor recheck Lactic acid Qualifiers: Sepsis type: sepsis due to unspecified organism Qualified Code(s): A41.9 - Sepsis, unspecified organism (2) UTI (urinary tract infection) Conclusion/Plan: UA analysis reveals positive UTI, WBC is 17 followup UA culture and sensitive study start with Rocephin, according to her hx of UTI and sensitivity study (3) Acute kidney injury Conclusion/Plan: creatinine is 1.5 from her baseline 0.7, acute kidney injury, it seems form her severe dehydration IVF of NS lab monitor hold nephro-toxical agent (4) Fracture dislocation of shoulder joint Conclusion/Plan: left humeral head fracture, consult with orthopedics surgeon and followup Pain control, will add Splint per surgeon Qualifiers: Encounter type: initial encounter Fracture type: closed Laterality: left Qualified Code(s): S42.92XA - Fracture of left shoulder girdle, part uns pecified, initial encounter for closed fracture (5) Fall Conclusion/Plan: pt is living at community long[facility]term. I discussed with pt's caregiver how to prevent fall to pt. will continue support Qualifiers: Encounter type: initial encounter Qualified Code(s): W19.XXXA - Unspecified fall, initial encounter (6) Hypothyroidism Conclusion/Plan: will check TSH and reconcile pt's home meds (7) History of developmental delay Conclusion/Plan: pt is aphasia, will continue support pt and nurse care to pt (8) Hx of macrocytic anemia Conclusion/Plan: pt's HGB is 8.4, hx of anemia, MCV is 97. pt has no GI bleed reported will do anemia study. lab monitor - Lab Results Fish Bones: 12/19/18 11:14 12/19/18 10:33 Core Measures - Anticipated LOS I expect patient to be DC'd or transferred within 96 hours.: Yes - DVT/VTE - Prophylaxis VTE/DVT Device ordered at admit?: Yes VTE/DVT Prophylaxis med ordered at admit?: Yes
[2018-12-19] MEDS: ASPIRIN CHEW 81 MG TABLET PO SCH (15:29)
[2018-12-19 15:46] LABS: % IRON SATURATION 31 % (20-50); IRON 74 ug/dL (28-170); TOTAL IRON BINDING CAPACITY 239 ug/dL (250-450); TRANSFERRIN 171 mg/dL (192-382)
[2018-12-19 15:50] LABS: ABSOLUTE RETICS # AUTO 0.154 10^6/uL (0.020-0.110); MEAN RETIC VALUE 118.5; RED BLOOD COUNT 2.62 10^6/uL (4.20-5.40)
[2018-12-19] MEDS ORDERED: ALBUTEROL NEB 2.5 MG/3 ML INH PRN (16:16)
[2018-12-19] MEDS: MORPHINE 2 MG/ML CARPUJECT IVP PRN ×2 (16:17→18:24)
[2018-12-19 16:21] LABS: FERRITIN 1100.7 ng/mL (11.0-306.8)
[2018-12-19] MEDS: SODIUM CHLORIDE 0.9% 1,000 ML IV SCH ×2 (16:26→20:43)
[2018-12-19] MEDS: SODIUM CHLORIDE FLUSH 0.9% 10 ML SYRINGE IVP SCH (16:48)
[2018-12-19] MEDS: oxyCODONE 5 MG TABLET PO PRN (16:50)
--- NOTE | 2018-12-19 17:11 | XRAY Report ---
Reason: SOB Procedure Date: 12/19/2018 Accession Number: [id number] / [id number] Procedure: XR - Chest 1 View X-Ray CPT Code: 14276 FULL RESULT: EXAM: CHEST RADIOGRAPHY EXAM DATE: 12/19/2018 04:48 PM. CLINICAL HISTORY: Dyspnea COMPARISON: 09/01/2014 5:50 PM. TECHNIQUE: 1 view. FINDINGS: Lungs/Pleura: No focal opacities evident. No pleural effusion. No pneumothorax. Mediastinum: Within exam limitations, the cardiomediastinal contour is normal. Other: There is fracture through the proximal left humerus. IMPRESSION: 1. There is fracture through the proximal left humerus. 2. No acute intrathoracic plain film abnormality. No evidence of lobar infiltrate or pneumothorax. RADIA
[2018-12-19] MEDS: ACETAMINOPHEN 325 MG TABLET PO PRN (17:44)
[2018-12-19] MEDS: HEPARIN 5,000 UNIT/ML VIAL SUBQ SCH (20:43)
[2018-12-19] MEDS: FAMOTIDINE 20 MG TABLET PO SCH (20:44)
[2018-12-19] MEDS: QUEtiapine 25 MG TABLET PO SCH (20:44)
[2018-12-19] MEDS: DIVALPROEX DR 250 MG TABLET PO SCH (20:52)
[2018-12-19] MEDS ORDERED: DIVALPROEX SODIUM 500 MG PO SCH (21:00)
[2018-12-20] MEDS: SODIUM CHLORIDE FLUSH 0.9% 10 ML SYRINGE IVP SCH ×4 (00:35→15:45)
[2018-12-20] MEDS: MORPHINE 2 MG/ML CARPUJECT IVP PRN ×4 (00:44→18:39)
[2018-12-20 05:18] LABS: BASOPHILS % (AUTO) 0.1 %; LYMPHOCYTES # (AUTO) 1.5 10^3/uL (1.5-3.5); LYMPHOCYTES % (AUTO) 9.2 %; MEAN CORPUSCULAR HEMOGLOBIN 32.3 pg (27.0-31.0); MEAN CORPUSCULAR HGB CONC 33.1 g/dL (32.0-36.0); MEAN CORPUSCULAR VOLUME 97.6 fL (81.0-99.0); MEAN PLATELET VOLUME 7.5 fL (7.9-10.8); MONOCYTES # (AUTO) 1.6 10^3/uL (0.0-1.0); MONOCYTES % (AUTO) 10.2 %; NEUTROPHILS # (AUTO) 12.9 10^3/uL (1.5-6.6); NEUTROPHILS % (AUTO) 80.5 %; PLT - PLATELET COUNT 137 10^3/uL (130-450); RED BLOOD COUNT 1.92 10^6/uL (4.20-5.40); RED CELL DISTRIBUTION WIDTH 14.9 % (12.0-15.0)
[2018-12-20 05:21] LABS: HGB - HEMOGLOBIN 6.2 g/dL (12.0-16.0)
[2018-12-20 05:22] LABS: CALCIUM 7.6 mg/dL (8.5-10.3); CREATININE 1.3 mg/dL (0.4-1.0)
[2018-12-20] MEDS: oxyCODONE 5 MG TABLET PO PRN ×3 (06:10→20:30)
[2018-12-20] MEDS: LEVOTHYROXINE 25 MCG TABLET PO SCH (06:11)
[2018-12-20 08:20] LABS: BILIRUBIN,DIRECT 0.1 mg/dL (0.1-0.5); BILIRUBIN,INDIRECT 0.2 mg/dL; BILIRUBIN,TOTAL 0.3 mg/dL (0.2-1.0)
[2018-12-20] MEDS ORDERED: cefTRIAXone 1 GM in SODIUM CHLORIDE 0.9% MINIBAG 100 ML IV SCH (09:00)
[2018-12-20] MEDS ORDERED: SERTRALINE 50 MG TABLET PO SCH (09:00)
[2018-12-20] MEDS ORDERED: cefTRIAXone 1 GM VIAL IVP SCH (09:00)
[2018-12-20] MEDS ORDERED: LEVOTHYROXINE 25 MCG TABLET PO SCH (09:00)
[2018-12-20] MEDS ORDERED: QUEtiapine 25 MG TABLET PO SCH (09:00)
--- NOTE | 2018-12-20 09:31 | PROVIDER PROGRESS NOTE ---
Subjective - Prog Note Date Prog Note Date: 12/20/18 Prog Note Time: 09:29 - Subjective Pt reports feeling: Improved (Appears comfortable in sling) Objective - Vital Signs/Intake & Output Vital Signs: Vital Signs x48h Temp Pulse Resp BP Pulse Ox 12/20/18 08:48 108 H 99 12/20/18 08:43 36.9 C 12/20/18 07:56 38.1 C H 101 H 16 86 L 12/20/18 04:44 37.2 C 109 H 18 98/54 L 94 Intake & Output: Intake & Output 12/17/18 12/18/18 12/19/18 12/20/18 23:59 23:59 23:59 23:59 Intake Total 2855.417 1150 Balance 2855.417 1150 - Lab Results Fish Bones: 12/20/18 04:25 12/20/18 04:25 Other Labs: Lab Results x24hrs 12/20/18 12/20/18 12/20/18 Range/Units 07:50 07:50 04:25 WBC (4.8-10.8) x10^3/uL RBC (4.20-5.40) 10^6/uL Hgb (12.0-16.0) g/dL Hct (37.0-47.0) % MCV (81.0-99.0) fL MCH (27.0-31.0) pg MCHC (32.0-36.0) g/dL RDW (12.0-15.0) % Plt Count (130-450) 10^3/uL MPV (7.9-10.8) fL Reticulocyte % (Auto) (0.5-2.3) % Neut # (Auto) (1.5-6.6) 10^3/uL Lymph # (Auto) (1.5-3.5) 10^3/uL [place] # (Auto) (0.0-1.0) 10^3/uL Eos # (Auto) (0.0-0.7) 10^3/uL Baso # (Auto) (0.0-0.1) 10^3/uL Absolute Nucleated RBC x10^3/uL Nucleated RBC % /100WBC Manual Slide Review WBC Morphology (NORMAL) Platelet Estimate (NORMAL) Platelet Morphology (NORMAL) RBC Morph Micro Appear (NORMAL) Absolute Retic (0.020-0.110) 10^6/uL Sodium (135-145) mmol/L Potassium (3.5-5.0) mmol/L Chloride (101-111) mmol/L Carbon Dioxide (21-32) mmol/L Anion Gap (6-13) BUN (6-20) mg/dL Creatinine (0.4-1.0) mg/dL Estimated GFR (MDRD) (>89) Glucose (70-100) mg/dL Lactic Acid (0.5-2.2) mmol/L Calcium (8.5-10.3) mg/dL Magnesium (1.7-2.8) mg/dL Iron (28-170) ug/dL TIBC (250-450) ug/dL % Saturation (20-50) % Transferrin (192-382) mg/dL Ferritin (11.0-306.8) ng/mL Total Bilirubin 0.3 (0.2-1.0) mg/dL Direct Bilirubin 0.1 (0.1-0.5) mg/dL Indirect Bilirubin 0.2 mg/dL AST (10-42) IU/L ALT (10-60) IU/L Alkaline Phosphatase (42-121) IU/L Lactate Dehydrogenase (91-225) IU/L Troponin I (<0.49) ng/mL Total Protein (6.7-8.2) g/dL Albumin (3.2-5.5) g/dL Globulin (2.1-4.2) g/dL Albumin/Globulin Ratio (1.0-2.2) Lipase (22-51) U/L Vitamin B12 551 (180-914) pg/mL TSH (0.34-5.60) uIU/mL Urine Color Urine Clarity (CLEAR) Urine pH (5.0-7.5) PH Ur Specific [place] (1.002-1.030) Urine Protein (NEGATIVE) mg/dL Urine Glucose (UA) (NEGATIVE) mg/dL Urine Ketones (NEGATIVE) mg/dL Urine Occult Blood (NEGATIVE) Urine Nitrite (NEGATIVE) Urine Bilirubin (NEGATIVE) Urine Urobilinogen (NORMAL) E.U./dL Ur Leukocyte Esterase (NEGATIVE) Urine RBC (0-5) /HPF Urine WBC (0-5) /HPF Urine WBC Clumps Ur Squamous Epith Cells (<= Few) Urine Bacteria (None Seen) /HPF Urine Casts /LPF Urine Mucus Ur Microscopic Review Urine Culture Comments Last Dose Date Last Dose Time Valproic Acid ug/mL Blood Type A POSITIVE Blood Type Recheck Antibody Screen NEGATIVE Crossmatch IS Only See Detail 12/20/18 12/20/18 12/20/18 Range/Units 04:25 04:25 04:25 WBC (4.8-10.8) x10^3/uL RBC (4.20-5.40) 10^6/uL Hgb (12.0-16.0) g/dL Hct (37.0-47.0) % MCV (81.0-99.0) fL MCH (27.0-31.0) pg MCHC (32.0-36.0) g/dL RDW (12.0-15.0) % Plt Count (130-450) 10^3/uL MPV (7.9-10.8) fL Reticulocyte % (Auto) (0.5-2.3) % Neut # (Auto) (1.5-6.6) 10^3/uL Lymph # (Auto) (1.5-3.5) 10^3/uL [place] # (Auto) (0.0-1.0) 10^3/uL Eos # (Auto) (0.0-0.7) 10^3/uL Baso # (Auto) (0.0-0.1) 10^3/uL Absolute Nucleated RBC x10^3/uL Nucleated RBC % /100WBC Manual Slide Review WBC Morphology (NORMAL) Platelet Estimate (NORMAL) Platelet Morphology (NORMAL) RBC Morph Micro Appear (NORMAL) Absolute Retic (0.020-0.110) 10^6/uL Sodium 135 (135-145) mmol/L Potassium 5.1 H (3.5-5.0) mmol/L Chloride 103 (101-111) mmol/L Carbon Dioxide 24 (21-32) mmol/L Anion Gap 8.0 (6-13) BUN 44 H (6-20) mg/dL Creatinine 1.3 H (0.4-1.0) mg/dL Estimated GFR (MDRD) 41 L (>89) Glucose 102 H (70-100) mg/dL Lactic Acid (0.5-2.2) mmol/L Calcium 7.6 L (8.5-10.3) mg/dL Magnesium (1.7-2.8) mg/dL Iron (28-170) ug/dL TIBC (250-450) ug/dL % Saturation (20-50) % Transferrin (192-382) mg/dL Ferritin (11.0-306.8) ng/mL Total Bilirubin (0.2-1.0) mg/dL Direct Bilirubin (0.1-0.5) mg/dL Indirect Bilirubin mg/dL AST (10-42) IU/L ALT (10-60) IU/L Alkaline Phosphatase (42-121) IU/L Lactate Dehydrogenase 131 (91-225) IU/L Troponin I (<0.49) ng/mL Total Protein (6.7-8.2) g/dL Albumin (3.2-5.5) g/dL Globulin (2.1-4.2) g/dL Albumin/Globulin Ratio (1.0-2.2) Lipase (22-51) U/L Vitamin B12 (180-914) pg/mL TSH 4.15 (0.34-5.60) uIU/mL Urine Color Urine Clarity (CLEAR) Urine pH (5.0-7.5) PH Ur Specific [place] (1.002-1.030) Urine Protein (NEGATIVE) mg/dL Urine Glucose (UA) (NEGATIVE) mg/dL Urine Ketones (NEGATIVE) mg/dL Urine Occult Blood (NEGATIVE) Urine Nitrite (NEGATIVE) Urine Bilirubin (NEGATIVE) Urine Urobilinogen (NORMAL) E.U./dL Ur Leukocyte Esterase (NEGATIVE) Urine RBC (0-5) /HPF Urine WBC (0-5) /HPF Urine WBC Clumps Ur Squamous Epith Cells (<= Few) Urine Bacteria (None Seen) /HPF Urine Casts /LPF Urine Mucus Ur Microscopic Review Urine Culture Comments Last Dose Date Last Dose Time Valproic Acid ug/mL Blood Type Blood Type Recheck Antibody Screen Crossmatch IS Only 12/20/18 12/20/18 12/19/18 Range/Units 04:25 04:15 15:10 WBC 16.0 H (4.8-10.8) x10^3/uL RBC 1.92 L (4.20-5.40) 10^6/uL Hgb 6.2 L* (12.0-16.0) g/dL Hct 18.7 L* (37.0-47.0) % MCV 97.6 (81.0-99.0) fL MCH 32.3 H (27.0-31.0) pg MCHC 33.1 (32.0-36.0) g/dL RDW 14.9 (12.0-15.0) % Plt Count 137 (130-450) 10^3/uL MPV 7.5 L (7.9-10.8) fL Reticulocyte % (Auto) (0.5-2.3) % Neut # (Auto) 12.9 H (1.5-6.6) 10^3/uL Lymph # (Auto) 1.5 (1.5-3.5) 10^3/uL [place] # (Auto) 1.6 H (0.0-1.0) 10^3/uL Eos # (Auto) 0.0 (0.0-0.7) 10^3/uL Baso # (Auto) 0.0 (0.0-0.1) 10^3/uL Absolute Nucleated RBC 0.00 x10^3/uL Nucleated RBC % 0.0 /100WBC Manual Slide Review WBC Morphology (NORMAL) Platelet Estimate (NORMAL) Platelet Morphology (NORMAL) RBC Morph Micro Appear (NORMAL) Absolute Retic (0.020-0.110) 10^6/uL Sodium (135-145) mmol/L Potassium (3.5-5.0) mmol/L Chloride (101-111) mmol/L Carbon Dioxide (21-32) mmol/L Anion Gap (6-13) BUN (6-20) mg/dL Creatinine (0.4-1.0) mg/dL Estimated GFR (MDRD) (>89) Glucose (70-100) mg/dL Lactic Acid 1.9 (0.5-2.2) mmol/L Calcium (8.5-10.3) mg/dL Magnesium (1.7-2.8) mg/dL Iron (28-170) ug/dL TIBC (250-450) ug/dL % Saturation (20-50) % Transferrin (192-382) mg/dL Ferritin (11.0-306.8) ng/mL Total Bilirubin (0.2-1.0) mg/dL Direct Bilirubin (0.1-0.5) mg/dL Indirect Bilirubin mg/dL AST (10-42) IU/L ALT (10-60) IU/L Alkaline Phosphatase (42-121) IU/L Lactate Dehydrogenase (91-225) IU/L Troponin I (<0.49) ng/mL Total Protein (6.7-8.2) g/dL Albumin (3.2-5.5) g/dL Globulin (2.1-4.2) g/dL Albumin/Globulin Ratio (1.0-2.2) Lipase (22-51) U/L Vitamin B12 (180-914) pg/mL TSH (0.34-5.60) uIU/mL Urine Color Urine Clarity (CLEAR) Urine pH (5.0-7.5) PH Ur Specific [place] (1.002-1.030) Urine Protein (NEGATIVE) mg/dL Urine Glucose (UA) (NEGATIVE) mg/dL Urine Ketones (NEGATIVE) mg/dL Urine Occult Blood (NEGATIVE) Urine Nitrite (NEGATIVE) Urine Bilirubin (NEGATIVE) Urine Urobilinogen (NORMAL) E.U./dL Ur Leukocyte Esterase (NEGATIVE) Urine RBC (0-5) /HPF Urine WBC (0-5) /HPF Urine WBC Clumps Ur Squamous Epith Cells (<= Few) Urine Bacteria (None Seen) /HPF Urine Casts /LPF Urine Mucus Ur Microscopic Review Urine Culture Comments Last Dose Date Last Dose Time Valproic Acid ug/mL Blood Type Blood Type Recheck A POSITIVE Antibody Screen Crossmatch IS Only 12/19/18 12/19/18 12/19/18 Range/Units 15:06 13:54 11:15 WBC (4.8-10.8) x10^3/uL RBC (4.20-5.40) 10^6/uL Hgb (12.0-16.0) g/dL Hct (37.0-47.0) % MCV (81.0-99.0) fL MCH (27.0-31.0) pg MCHC (32.0-36.0) g/dL RDW (12.0-15.0) % Plt Count (130-450) 10^3/uL MPV (7.9-10.8) fL Reticulocyte % (Auto) (0.5-2.3) % Neut # (Auto) (1.5-6.6) 10^3/uL Lymph # (Auto) (1.5-3.5) 10^3/uL [place] # (Auto) (0.0-1.0) 10^3/uL Eos # (Auto) (0.0-0.7) 10^3/uL Baso # (Auto) (0.0-0.1) 10^3/uL Absolute Nucleated RBC x10^3/uL Nucleated RBC % /100WBC Manual Slide Review WBC Morphology (NORMAL) Platelet Estimate (NORMAL) Platelet Morphology (NORMAL) RBC Morph Micro Appear (NORMAL) Absolute Retic (0.020-0.110) 10^6/uL Sodium (135-145) mmol/L Potassium (3.5-5.0) mmol/L Chloride (101-111) mmol/L Carbon Dioxide (21-32) mmol/L Anion Gap (6-13) BUN (6-20) mg/dL Creatinine (0.4-1.0) mg/dL Estimated GFR (MDRD) (>89) Glucose (70-100) mg/dL Lactic Acid (0.5-2.2) mmol/L Calcium (8.5-10.3) mg/dL Magnesium (1.7-2.8) mg/dL Iron 74 (28-170) ug/dL TIBC 239 L (250-450) ug/dL % Saturation 31 (20-50) % Transferrin 171 L (192-382) mg/dL Ferritin 1100.7 H (11.0-306.8) ng/mL Total Bilirubin (0.2-1.0) mg/dL Direct Bilirubin (0.1-0.5) mg/dL Indirect Bilirubin mg/dL AST (10-42) IU/L ALT (10-60) IU/L Alkaline Phosphatase (42-121) IU/L Lactate Dehydrogenase (91-225) IU/L Troponin I < 0.04 (<0.49) ng/mL Total Protein (6.7-8.2) g/dL Albumin (3.2-5.5) g/dL Globulin (2.1-4.2) g/dL Albumin/Globulin Ratio (1.0-2.2) Lipase (22-51) U/L Vitamin B12 626 (180-914) pg/mL TSH (0.34-5.60) uIU/mL Urine Color Urine Clarity (CLEAR) Urine pH (5.0-7.5) PH Ur Specific [place] (1.002-1.030) Urine Protein (NEGATIVE) mg/dL Urine Glucose (UA) (NEGATIVE) mg/dL Urine Ketones (NEGATIVE) mg/dL Urine Occult Blood (NEGATIVE) Urine Nitrite (NEGATIVE) Urine Bilirubin (NEGATIVE) Urine Urobilinogen (NORMAL) E.U./dL Ur Leukocyte Esterase (NEGATIVE) Urine RBC (0-5) /HPF Urine WBC (0-5) /HPF Urine WBC Clumps Ur Squamous Epith Cells (<= Few) Urine Bacteria (None Seen) /HPF Urine Casts /LPF Urine Mucus Ur Microscopic Review Urine Culture Comments Last Dose Date Last Dose Time Valproic Acid ug/mL Blood Type Blood Type Recheck Antibody Screen Crossmatch IS Only 12/19/18 12/19/18 12/19/18 Range/Units 11:14 11:14 11:14 WBC (4.8-10.8) x10^3/uL RBC 2.62 L (4.20-5.40) 10^6/uL Hgb (12.0-16.0) g/dL Hct (37.0-47.0) % MCV (81.0-99.0) fL MCH (27.0-31.0) pg MCHC (32.0-36.0) g/dL RDW (12.0-15.0) % Plt Count (130-450) 10^3/uL MPV (7.9-10.8) fL Reticulocyte % (Auto) 5.88 H (0.5-2.3) % Neut # (Auto) (1.5-6.6) 10^3/uL Lymph # (Auto) (1.5-3.5) 10^3/uL [place] # (Auto) (0.0-1.0) 10^3/uL Eos # (Auto) (0.0-0.7) 10^3/uL Baso # (Auto) (0.0-0.1) 10^3/uL Absolute Nucleated RBC x10^3/uL Nucleated RBC % /100WBC Manual Slide Review WBC Morphology (NORMAL) Platelet Estimate (NORMAL) Platelet Morphology (NORMAL) RBC Morph Micro Appear (NORMAL) Absolute Retic 0.154 H (0.020-0.110) 10^6/uL Sodium (135-145) mmol/L Potassium (3.5-5.0) mmol/L Chloride (101-111) mmol/L Carbon Dioxide (21-32) mmol/L Anion Gap (6-13) BUN (6-20) mg/dL Creatinine (0.4-1.0) mg/dL Estimated GFR (MDRD) (>89) Glucose (70-100) mg/dL Lactic Acid 5.7 H* (0.5-2.2) mmol/L Calcium (8.5-10.3) mg/dL Magnesium (1.7-2.8) mg/dL Iron (28-170) ug/dL TIBC (250-450) ug/dL % Saturation (20-50) % Transferrin (192-382) mg/dL Ferritin (11.0-306.8) ng/mL Total Bilirubin (0.2-1.0) mg/dL Direct Bilirubin (0.1-0.5) mg/dL Indirect Bilirubin mg/dL AST (10-42) IU/L ALT (10-60) IU/L Alkaline Phosphatase (42-121) IU/L Lactate Dehydrogenase 157 (91-225) IU/L Troponin I (<0.49) ng/mL Total Protein (6.7-8.2) g/dL Albumin (3.2-5.5) g/dL Globulin (2.1-4.2) g/dL Albumin/Globulin Ratio (1.0-2.2) Lipase (22-51) U/L Vitamin B12 (180-914) pg/mL TSH (0.34-5.60) uIU/mL Urine Color Urine Clarity (CLEAR) Urine pH (5.0-7.5) PH Ur Specific [place] (1.002-1.030) Urine Protein (NEGATIVE) mg/dL Urine Glucose (UA) (NEGATIVE) mg/dL Urine Ketones (NEGATIVE) mg/dL Urine Occult Blood (NEGATIVE) Urine Nitrite (NEGATIVE) Urine Bilirubin (NEGATIVE) Urine Urobilinogen (NORMAL) E.U./dL Ur Leukocyte Esterase (NEGATIVE) Urine RBC (0-5) /HPF Urine WBC (0-5) /HPF Urine WBC Clumps Ur Squamous Epith Cells (<= Few) Urine Bacteria (None Seen) /HPF Urine Casts /LPF Urine Mucus Ur Microscopic Review Urine Culture Comments Last Dose Date Last Dose Time Valproic Acid ug/mL Blood Type Blood Type Recheck Antibody Screen Crossmatch IS Only 12/19/18 12/19/18 12/19/18 Range/Units 11:14 11:00 10:33 WBC 17.0 H (4.8-10.8) x10^3/uL RBC 2.60 L (4.20-5.40) 10^6/uL Hgb 8.4 L (12.0-16.0) g/dL Hct 25.4 L (37.0-47.0) % MCV 97.8 (81.0-99.0) fL MCH 32.1 H (27.0-31.0) pg MCHC 32.9 (32.0-36.0) g/dL RDW 14.8 (12.0-15.0) % Plt Count 201 (130-450) 10^3/uL MPV 7.4 L (7.9-10.8) fL Reticulocyte % (Auto) (0.5-2.3) % Neut # (Auto) 12.1 H (1.5-6.6) 10^3/uL Lymph # (Auto) 2.4 (1.5-3.5) 10^3/uL [place] # (Auto) 2.4 H (0.0-1.0) 10^3/uL Eos # (Auto) 0.0 (0.0-0.7) 10^3/uL Baso # (Auto) 0.1 (0.0-0.1) 10^3/uL Absolute Nucleated RBC 0.02 x10^3/uL Nucleated RBC % 0.1 /100WBC Manual Slide Review Indicated WBC Morphology NORMAL APPEARANCE (NORMAL) Platelet Estimate NORMAL (130-450,000) (NORMAL) Platelet Morphology NORMAL APPEARANCE (NORMAL) RBC Morph Micro Appear OVALOCYTES (NORMAL) Absolute Retic (0.020-0.110) 10^6/uL Sodium (135-145) mmol/L Potassium (3.5-5.0) mmol/L Chloride (101-111) mmol/L Carbon Dioxide (21-32) mmol/L Anion Gap (6-13) BUN (6-20) mg/dL Creatinine (0.4-1.0) mg/dL Estimated GFR (MDRD) (>89) Glucose (70-100) mg/dL Lactic Acid (0.5-2.2) mmol/L Calcium (8.5-10.3) mg/dL Magnesium (1.7-2.8) mg/dL Iron (28-170) ug/dL TIBC (250-450) ug/dL % Saturation (20-50) % Transferrin (192-382) mg/dL Ferritin (11.0-306.8) ng/mL Total Bilirubin (0.2-1.0) mg/dL Direct Bilirubin (0.1-0.5) mg/dL Indirect Bilirubin mg/dL AST (10-42) IU/L ALT (10-60) IU/L Alkaline Phosphatase (42-121) IU/L Lactate Dehydrogenase (91-225) IU/L Troponin I (<0.49) ng/mL Total Protein (6.7-8.2) g/dL Albumin (3.2-5.5) g/dL Globulin (2.1-4.2) g/dL Albumin/Globulin Ratio (1.0-2.2) Lipase (22-51) U/L Vitamin B12 (180-914) pg/mL TSH (0.34-5.60) uIU/mL Urine Color YELLOW Urine Clarity HAZY (CLEAR) Urine pH 6.0 (5.0-7.5) PH Ur Specific [place] 1.020 (1.002-1.030) Urine Protein 30 H (NEGATIVE) mg/dL Urine Glucose (UA) NEGATIVE (NEGATIVE) mg/dL Urine Ketones TRACE (NEGATIVE) mg/dL Urine Occult Blood NEGATIVE (NEGATIVE) Urine Nitrite POSITIVE H (NEGATIVE) Urine Bilirubin NEGATIVE (NEGATIVE) Urine Urobilinogen 2 H (NORMAL) E.U./dL Ur Leukocyte Esterase SMALL H (NEGATIVE) Urine RBC None Seen (0-5) /HPF Urine WBC 4-5 (0-5) /HPF Urine WBC Clumps PRESENT Ur Squamous Epith Cells RARE Squamous (<= Few) Urine Bacteria Moderate H (None Seen) /HPF Urine Casts 0-2 Hyaline Casts /LPF Urine Mucus Few Strands Ur Microscopic Review INDICATED Urine Culture Comments INDICATED Last Dose Date 12/19/18 Last Dose Time 0800 Valproic Acid 39.6 ug/mL Blood Type Blood Type Recheck Antibody Screen Crossmatch IS Only 12/19/18 Range/Units 10:33 WBC (4.8-10.8) x10^3/uL RBC (4.20-5.40) 10^6/uL Hgb (12.0-16.0) g/dL Hct (37.0-47.0) % MCV (81.0-99.0) fL MCH (27.0-31.0) pg MCHC (32.0-36.0) g/dL RDW (12.0-15.0) % Plt Count (130-450) 10^3/uL MPV (7.9-10.8) fL Reticulocyte % (Auto) (0.5-2.3) % Neut # (Auto) (1.5-6.6) 10^3/uL Lymph # (Auto) (1.5-3.5) 10^3/uL [place] # (Auto) (0.0-1.0) 10^3/uL Eos # (Auto) (0.0-0.7) 10^3/uL Baso # (Auto) (0.0-0.1) 10^3/uL Absolute Nucleated RBC x10^3/uL Nucleated RBC % /100WBC Manual Slide Review WBC Morphology (NORMAL) Platelet Estimate (NORMAL) Platelet Morphology (NORMAL) RBC Morph Micro Appear (NORMAL) Absolute Retic (0.020-0.110) 10^6/uL Sodium 136 (135-145) mmol/L Potassium 4.6 (3.5-5.0) mmol/L Chloride 101 (101-111) mmol/L Carbon Dioxide 18 L (21-32) mmol/L Anion Gap 17.0 H (6-13) BUN 41 H (6-20) mg/dL Creatinine 1.5 H (0.4-1.0) mg/dL Estimated GFR (MDRD) 35 L (>89) Glucose 136 H (70-100) mg/dL Lactic Acid (0.5-2.2) mmol/L Calcium 8.2 L (8.5-10.3) mg/dL Magnesium 1.8 (1.7-2.8) mg/dL Iron (28-170) ug/dL TIBC (250-450) ug/dL % Saturation (20-50) % Transferrin (192-382) mg/dL Ferritin (11.0-306.8) ng/mL Total Bilirubin 0.3 (0.2-1.0) mg/dL Direct Bilirubin (0.1-0.5) mg/dL Indirect Bilirubin mg/dL AST 37 (10-42) IU/L ALT 14 (10-60) IU/L Alkaline Phosphatase 42 (42-121) IU/L Lactate Dehydrogenase (91-225) IU/L Troponin I (<0.49) ng/mL Total Protein 5.7 L (6.7-8.2) g/dL Albumin 2.7 L (3.2-5.5) g/dL Globulin 3.0 (2.1-4.2) g/dL Albumin/Globulin Ratio 0.9 L (1.0-2.2) Lipase 26 (22-51) U/L Vitamin B12 (180-914) pg/mL TSH (0.34-5.60) uIU/mL Urine Color Urine Clarity (CLEAR) Urine pH (5.0-7.5) PH Ur Specific [place] (1.002-1.030) Urine Protein (NEGATIVE) mg/dL Urine Glucose (UA) (NEGATIVE) mg/dL Urine Ketones (NEGATIVE) mg/dL Urine Occult Blood (NEGATIVE) Urine Nitrite (NEGATIVE) Urine Bilirubin (NEGATIVE) Urine Urobilinogen (NORMAL) E.U./dL Ur Leukocyte Esterase (NEGATIVE) Urine RBC (0-5) /HPF Urine WBC (0-5) /HPF Urine WBC Clumps Ur Squamous Epith Cells (<= Few) Urine Bacteria (None Seen) /HPF Urine Casts /LPF Urine Mucus Ur Microscopic Review Urine Culture Comments Last Dose Date Last Dose Time Valproic Acid ug/mL Blood Type Blood Type Recheck Antibody Screen Crossmatch IS Only - Diagnostic Imaging Diagnostic Imaging Comments: CXR: still some inferior subluxation of left shoulder; better than in ED. Fracture impacted and stable position - Other Results/Comments Other Results/Comments: EXAM: In sling. Still with some pain with shoulder motion. Contour of shoulder improved and nearly symmetrical to right Sepsis Event Note (H) - Evaluation Current Stage of Sepsis: Sepsis Possible source of Sepsis: positive: Genitourinary - Sepsis Criteria Sepsis Criteria: Recorded Heart Rate greater than 90 bpm, WBC count greater than 12,000 or less than 4000, SBP less than 90 mmHg Assessment/Plan - Problem List (1) Fracture dislocation of shoulder joint Impression: Stable; with residual inferior subluxation of left shoulder due to muscle weakness, gravity, and hemarthrosis PLAN: Sling as needed for comfort. Begin moving shoulder as tolerated in 2-3 days with PT. Qualifiers: Encounter type: initial encounter Fracture type: closed Laterality: left Qualified Code(s): S42.92XA - Fracture of left shoulder girdle, part unspecified, initial encounter for closed fracture
[2018-12-20] MEDS ORDERED: SODIUM CHLORIDE 0.9% 500 ML IV ONE (09:38)
[2018-12-20] MEDS ORDERED: SODIUM CHLORIDE FLUSH 0.9% 10 ML SYRINGE ONE (09:39)
--- NOTE | 2018-12-20 09:41 | XRAY Report ---
Reason: SOB Procedure Date: 12/20/2018 Accession Number: [id number] / [id number] Procedure: XR - Chest 1 View X-Ray CPT Code: 50039 FULL RESULT: EXAM: CHEST RADIOGRAPHY EXAM DATE: 12/20/2018 08:59 AM. CLINICAL HISTORY: SOB. Fever. COMPARISON: CHEST 1 VIEW 12/19/2018 4:36 PM SHOULDER 2 VIEW LT 12/19/2018 12:06 PM. TECHNIQUE: Supine AP view. The patient is slightly rotated toward the left. FINDINGS: Lungs/Pleura: Lung volumes are low normal. No focal opacities evident. No peribronchial cuffing or interstitial abnormality. No gross pleural effusion. No gross pneumothorax. Mediastinum: Within exam limitations, the cardiomediastinal contour is normal. Other: Acute comminuted impacted fracture of the left humeral surgical neck with inferior humeral head subluxation (probably related to joint effusion), unchanged from yesterday. IMPRESSION: 1. Lungs are clear. 2. Left humeral neck fracture, as before. RADIA
[2018-12-20] MEDS ORDERED: IPRATROPIUM/ALBUTEROL 3 ML NEB INH PRN (10:24)
[2018-12-20] MEDS ORDERED: SODIUM CHLORIDE 0.9% 1,000 ML IV SCH (11:00)
[2018-12-20] MEDS: CALCIUM CITRATE 250 MG TABLET PO SCH (11:32)
[2018-12-20] MEDS: CHOLECALCIFEROL 1,000 UNIT TABLET PO SCH (11:32)
[2018-12-20] MEDS: FAMOTIDINE 20 MG TABLET PO SCH (11:33)
[2018-12-20] MEDS: SERTRALINE 50 MG TABLET PO SCH (11:33)
[2018-12-20] MEDS: HEPARIN 5,000 UNIT/ML VIAL SUBQ SCH ×2 (11:34→20:52)
[2018-12-20] MEDS: DIVALPROEX DR 250 MG TABLET PO SCH ×2 (11:34→20:31)
[2018-12-20] MEDS: ASPIRIN CHEW 81 MG TABLET PO SCH (11:34)
[2018-12-20] MEDS: POLYETHYLENE GLYCOL 3350 17 GM PACKET PO SCH (11:38)
--- NOTE | 2018-12-20 14:05 | ADVANCE CARE PLANNING NOTE ---
Advance Care Planning - Date/Time Date: 12/20/18 Time: 13:00 - Purpose of encounter Text: advance care for pt - Parties in attendance Parties in attendance: pt's guardian Ms Mejia and me - Decisional capacity Decisional capacity of: pt has hx of developed delay, she can not make any decision for her at all. unfortunately she has no family member involved on her life now. - Subjective/Patient's story Subjective/Patient's story: This is very unfortunately developed delayed pt. [facility], [facility] signed guardian to monitor pt's care. pt's family does not want anything to do with her and is not involved in her care or her life. I called pt's guardian Ms Mejia, she come to hospital. she signed her PLOST which state pt's DNR with limited intervention. - Objective/Medical story Objective/Medical Story: pt had hx of developed delay, seizure disorder, iron deficience anemia, osteoporosis, urinary incontinence, anxiety, arthritis, HTN, HLD, hypothyroidism. pt is aphasia, and lack of any ambulation ability. - Goals of Care Goals of care determinations: DNR with limited intervention - Plan Plan: DNR for pt , guardian signed the PLOST - Code Status Code Status: Do Not Attempt Resuscitation - Time Spent on Advance Care Planning Time spent on advance care plannin
--- NOTE | 2018-12-20 15:02 | PROVIDER PROGRESS NOTE ---
Subjective - Prog Note Date Prog Note Date: 12/20/18 - Subjective Subjective: I called pt's guardian and reported to her pt's medical condition. Pt's guardian come to hospital, we discussed the care plan, she state she understand, then she signed PLOST forum and pt's code status is DNR now. Today pt has no fever. but pt's HGB dropped to 6.2, require blood transfusion. Also pt's O2 sat drop, and require O2 supplement. Occult stool test is negative for blood. Current Medications - Current Medications Current Medications: Active Medications Acetaminophen (Tylenol) 650 mg PO Q4HR PRN PRN Reason: Pain 1 to 4 Last Admin: 12/19/18 17:44 Dose: 650 mg Albuterol () 2.5 mg INH RTQ4H PRN PRN Reason: Wheezing Albuterol/Ipratropium (Duoneb) 3 ml INH Q4HR PRN PRN Reason: Wheezing Aspirin ([place] Aspirin) 81 mg PO DAILY [facility] Last Admin: 12/20/18 11:34 Dose: 81 mg Calcium Citrate () 250 mg PO DAILY [facility] Last Admin: 12/20/18 11:32 Dose: 250 mg Cholecalciferol (Vitamin D3) 1,000 unit PO DAILY [facility] Last Admin: 12/20/18 11:32 Dose: 1,000 unit Divalproex Sodium (Depakote Dr) 1,000 mg PO QPM [facility] Last Admin: 12/19/18 20:52 Dose: 1,000 mg Divalproex Sodium (Depakote Dr) 500 mg PO DAILY [facility] Last Admin: 12/20/18 11:34 Dose: 500 mg Famotidine (Pepcid) 20 mg PO DAILY [facility] Last Admin: 12/20/18 11:33 Dose: 20 mg Heparin Sodium (Porcine) () 2,500 unit SUBQ BID [facility] Last Admin: 12/20/18 11:34 Dose: 2,500 unit Sodium Chloride (Normal Saline 0.9%) 1,000 mls @ 100 mls/hr IV .Q10H [facility] Stop: 12/21/18 06:59 Ceftriaxone Sodium 1 gm/ (Sodium Chloride) 100 mls @ 200 mls/hr IV Q24H [facility] Levothyroxine Sodium (Synthroid) 50 mcg PO QDAC [facility] Last Admin: 12/20/18 06:11 Dose: 50 mcg Morphine Sulfate (Morphine (Carpuject)) 2 mg IVP Q2HR PRN PRN Reason: Pain 8 to 10 Last Admin: 12/20/18 04:26 Dose: 2 mg Ondansetron HCl (Zofran Inj) 4 mg IVP Q6HR PRN PRN Reason: Nausea / Vomiting Oxycodone HCl (Roxicodone) 5 mg PO Q4HR PRN PRN Reason: Pain 5 to 7 Last Admin: 12/20/18 14:26 Dose: 5 mg Polyethylene Glycol (Miralax) 17 gm PO DAILY [facility] Last Admin: 12/20/18 11:38 Dose: 17 gm Quetiapine Fumarate (Seroquel) 50 mg PO QPM [facility] Last Admin: 12/19/18 20:44 Dose: 50 mg Sertraline HCl (Zoloft) 200 mg PO DAILY [facility] Last Admin: 12/20/18 11:33 Dose: 200 mg Sodium Chloride (Normal Saline Flush 0.9%) 10 ml IVP PRN PRN PRN Reason: NEEDED PER PROVIDER ORDERS Sodium Chloride (Normal Saline Flush 0.9%) 10 ml IVP 0100,0900,1700 [facility] Last Admin: 12/20/18 11:40 Dose: 10 ml Cholecalciferol (Vitamin D3) [Vitamin D] 1,000 units PO DAILY 04/09/14 Lovastatin [Altoprev] 20 mg PO DAILY PM 04/09/14 Docusate Sodium 100 mg PO BID 10/06/17 Potassium Chloride [Micro-K] 10 meq PO DAILY 10/06/17 Ascorbic Acid [Vitamin C] 500 mg PO BID 12/19/18 Aspirin [Adult Low Dose Aspirin EC] 81 mg PO DAILY 12/19/18 Divalproex [Karin Samuel] 1,000 mg PO DAILY PM 12/19/18 Divalproex [Karin Samuel] 500 mg PO DAILY 12/19/18 Levothyroxine [Synthroid] 50 mcg PO DAILY 12/19/18 QUEtiapine [SEROquel] 12.5 mg PO DAILY 12/19/18 QUEtiapine [SEROquel] 50 mg PO DAILY PM 12/19/18 Sertraline [Zoloft] 200 mg PO DAILY 12/19/18 hydrOXYzine HCl [Hydroxyzine HCl] 25 mg PO TID PRN 12/19/18 Objective - Vital Signs/Intake & Output Vital Signs: Vital Signs x48h Temp Pulse Pulse Resp BP BP Pulse Ox 12/20/18 13:30 36.8 C 102 H 14 98/52 L 12/20/18 13:15 37.1 C 98 16 97/55 L 12/20/18 13:00 36.8 C 97 16 96/57 L 95 12/20/18 12:24 36.8 C 97 16 96/57 L 12/20/18 10:15 36.9 C 105 H 16 97/54 L 12/20/18 09:51 36.7 C 111 H 111 H 16 102/49 L 102/49 L 93 12/20/18 08:48 108 H 99 12/20/18 08:43 36.9 C 12/20/18 07:56 38.1 C H 101 H 16 86 L Intake & Output: Intake & Output 12/17/18 12/18/18 12/19/18 12/20/18 23:59 23:59 23:59 23:59 Intake Total 2855.417 2700 Balance 2855.417 2700 - Objective General Appearance: positive: No acute distress, Alert. negative: Lethargic Eyes Bilateral: positive: Normal inspection, PERRL, No lid inflammation, Conjunctivae nml ENT: positive: ENT inspection nml, Pharynx nml, No signs of dehydration. negative: Purulent nasal drainage, Pharyngeal erythema, Oral lesions Neck: positive: Nml inspection, Thyroid nml, No JVD, Trachea midline. negative: Thyromegaly, Lymphadenopathy (R), Lymphadenopathy (L), Swelling/bruising, Tracheal deviation Respiratory: positive: Chest non-tender, No respiratory distress, Breath sounds nml. negative: Wheezes, Rales, Rhonchi Cardiovascular: positive: Regular rate & rhythm, No murmur, No gallop. negative: Irregularly irregular, Extrasystoles, Tachycardia, Bradycardia, JVD present, Systolic murmur, Diastolic murmur Peripheral Pulses: 2+ Radial (R), 2+ Radial (L), 2+ Dorsalis pedis (R), 2+ Dorsalis pedis (L) Abdomen: positive: Non-tender, No organomegaly, Nml bowel sounds, No distention. negative: Tenderness, Guarding, Rebound Back: positive: Nml inspection Skin: positive: Color nml, No rash, Warm, Dry. negative: Cyanosis, Diaphoresis, Pallor Extremities: negative: Calf tenderness, Joint swelling, Radha's sign/cords Neurologic/Psychiatric: negative: Facial droop - Lab Results Fish Bones: 12/20/18 04:25 12/20/18 04:25 Other Labs: Lab Results x24hrs 12/20/18 12/20/18 12/20/18 Range/Units 11:15 07:50 07:50 WBC (4.8-10.8) x10^3/uL RBC (4.20-5.40) 10^6/uL Hgb (12.0-16.0) g/dL Hct (37.0-47.0) % MCV (81.0-99.0) fL MCH (27.0-31.0) pg MCHC (32.0-36.0) g/dL RDW (12.0-15.0) % Plt Count (130-450) 10^3/uL MPV (7.9-10.8) fL Reticulocyte % (Auto) (0.5-2.3) % Neut # (Auto) (1.5-6.6) 10^3/uL Lymph # (Auto) (1.5-3.5) 10^3/uL [place] # (Auto) (0.0-1.0) 10^3/uL Eos # (Auto) (0.0-0.7) 10^3/uL Baso # (Auto) (0.0-0.1) 10^3/uL Absolute Nucleated RBC x10^3/uL Nucleated RBC % /100WBC Absolute Retic (0.020-0.110) 10^6/uL D-Dimer 422.9 H (200.0-255.0) ng/mL Sodium (135-145) mmol/L Potassium (3.5-5.0) mmol/L Chloride (101-111) mmol/L Carbon Dioxide (21-32) mmol/L Anion Gap (6-13) BUN (6-20) mg/dL Creatinine (0.4-1.0) mg/dL Estimated GFR (MDRD) (>89) Glucose (70-100) mg/dL Lactic Acid (0.5-2.2) mmol/L Calcium (8.5-10.3) mg/dL Iron (28-170) ug/dL TIBC (250-450) ug/dL % Saturation (20-50) % Transferrin (192-382) mg/dL Ferritin (11.0-306.8) ng/mL Total Bilirubin (0.2-1.0) mg/dL Direct Bilirubin (0.1-0.5) mg/dL Indirect Bilirubin mg/dL Lactate Dehydrogenase (91-225) IU/L Vitamin B12 551 (180-914) pg/mL TSH (0.34-5.60) uIU/mL Blood Type A POSITIVE Blood Type Recheck Antibody Screen NEGATIVE Crossmatch IS Only See Detail 12/20/18 12/20/18 12/20/18 Range/Units 04:25 04:25 04:25 WBC (4.8-10.8) x10^3/uL RBC (4.20-5.40) 10^6/uL Hgb (12.0-16.0) g/dL Hct (37.0-47.0) % MCV (81.0-99.0) fL MCH (27.0-31.0) pg MCHC (32.0-36.0) g/dL RDW (12.0-15.0) % Plt Count (130-450) 10^3/uL MPV (7.9-10.8) fL Reticulocyte % (Auto) (0.5-2.3) % Neut # (Auto) (1.5-6.6) 10^3/uL Lymph # (Auto) (1.5-3.5) 10^3/uL [place] # (Auto) (0.0-1.0) 10^3/uL Eos # (Auto) (0.0-0.7) 10^3/uL Baso # (Auto) (0.0-0.1) 10^3/uL Absolute Nucleated RBC x10^3/uL Nucleated RBC % /100WBC Absolute Retic (0.020-0.110) 10^6/uL D-Dimer (200.0-255.0) ng/mL Sodium (135-145) mmol/L Potassium (3.5-5.0) mmol/L Chloride (101-111) mmol/L Carbon Dioxide (21-32) mmol/L Anion Gap (6-13) BUN (6-20) mg/dL Creatinine (0.4-1.0) mg/dL Estimated GFR (MDRD) (>89) Glucose (70-100) mg/dL Lactic Acid (0.5-2.2) mmol/L Calcium (8.5-10.3) mg/dL Iron (28-170) ug/dL TIBC (250-450) ug/dL % Saturation (20-50) % Transferrin (192-382) mg/dL Ferritin (11.0-306.8) ng/mL Total Bilirubin 0.3 (0.2-1.0) mg/dL Direct Bilirubin 0.1 (0.1-0.5) mg/dL Indirect Bilirubin 0.2 mg/dL Lactate Dehydrogenase 131 (91-225) IU/L Vitamin B12 (180-914) pg/mL TSH 4.15 (0.34-5.60) uIU/mL Blood Type Blood Type Recheck Antibody Screen Crossmatch IS Only 12/20/18 12/20/18 12/20/18 Range/Units 04:25 04:25 04:15 WBC 16.0 H (4.8-10.8) x10^3/uL RBC 1.92 L (4.20-5.40) 10^6/uL Hgb 6.2 L* (12.0-16.0) g/dL Hct 18.7 L* (37.0-47.0) % MCV 97.6 (81.0-99.0) fL MCH 32.3 H (27.0-31.0) pg MCHC 33.1 (32.0-36.0) g/dL RDW 14.9 (12.0-15.0) % Plt Count 137 (130-450) 10^3/uL MPV 7.5 L (7.9-10.8) fL Reticulocyte % (Auto) (0.5-2.3) % Neut # (Auto) 12.9 H (1.5-6.6) 10^3/uL Lymph # (Auto) 1.5 (1.5-3.5) 10^3/uL [place] # (Auto) 1.6 H (0.0-1.0) 10^3/uL Eos # (Auto) 0.0 (0.0-0.7) 10^3/uL Baso # (Auto) 0.0 (0.0-0.1) 10^3/uL Absolute Nucleated RBC 0.00 x10^3/uL Nucleated RBC % 0.0 /100WBC Absolute Retic (0.020-0.110) 10^6/uL D-Dimer (200.0-255.0) ng/mL Sodium 135 (135-145) mmol/L Potassium 5.1 H (3.5-5.0) mmol/L Chloride 103 (101-111) mmol/L Carbon Dioxide 24 (21-32) mmol/L Anion Gap 8.0 (6-13) BUN 44 H (6-20) mg/dL Creatinine 1.3 H (0.4-1.0) mg/dL Estimated GFR (MDRD) 41 L (>89) Glucose 102 H (70-100) mg/dL Lactic Acid (0.5-2.2) mmol/L Calcium 7.6 L (8.5-10.3) mg/dL Iron (28-170) ug/dL TIBC (250-450) ug/dL % Saturation (20-50) % Transferrin (192-382) mg/dL Ferritin (11.0-306.8) ng/mL Total Bilirubin (0.2-1.0) mg/dL Direct Bilirubin (0.1-0.5) mg/dL Indirect Bilirubin mg/dL Lactate Dehydrogenase (91-225) IU/L Vitamin B12 (180-914) pg/mL TSH (0.34-5.60) uIU/mL Blood Type Blood Type Recheck A POSITIVE Antibody Screen Crossmatch IS Only 12/19/18 12/19/18 12/19/18 Range/Units 15:10 15:06 11:15 WBC (4.8-10.8) x10^3/uL RBC (4.20-5.40) 10^6/uL Hgb (12.0-16.0) g/dL Hct (37.0-47.0) % MCV (81.0-99.0) fL MCH (27.0-31.0) pg MCHC (32.0-36.0) g/dL RDW (12.0-15.0) % Plt Count (130-450) 10^3/uL MPV (7.9-10.8) fL Reticulocyte % (Auto) (0.5-2.3) % Neut # (Auto) (1.5-6.6) 10^3/uL Lymph # (Auto) (1.5-3.5) 10^3/uL [place] # (Auto) (0.0-1.0) 10^3/uL Eos # (Auto) (0.0-0.7) 10^3/uL Baso # (Auto) (0.0-0.1) 10^3/uL Absolute Nucleated RBC x10^3/uL Nucleated RBC % /100WBC Absolute Retic (0.020-0.110) 10^6/uL D-Dimer (200.0-255.0) ng/mL Sodium (135-145) mmol/L Potassium (3.5-5.0) mmol/L Chloride (101-111) mmol/L Carbon Dioxide (21-32) mmol/L Anion Gap (6-13) BUN (6-20) mg/dL Creatinine (0.4-1.0) mg/dL Estimated GFR (MDRD) (>89) Glucose (70-100) mg/dL Lactic Acid 1.9 (0.5-2.2) mmol/L Calcium (8.5-10.3) mg/dL Iron 74 (28-170) ug/dL TIBC 239 L (250-450) ug/dL % Saturation 31 (20-50) % Transferrin 171 L (192-382) mg/dL Ferritin 1100.7 H (11.0-306.8) ng/mL Total Bilirubin (0.2-1.0) mg/dL Direct Bilirubin (0.1-0.5) mg/dL Indirect Bilirubin mg/dL Lactate Dehydrogenase (91-225) IU/L Vitamin B12 626 (180-914) pg/mL TSH (0.34-5.60) uIU/mL Blood Type Blood Type Recheck Antibody Screen Crossmatch IS Only 12/19/18 12/19/18 Range/Units 11:14 11:14 WBC (4.8-10.8) x10^3/uL RBC 2.62 L (4.20-5.40) 10^6/uL Hgb (12.0-16.0) g/dL Hct (37.0-47.0) % MCV (81.0-99.0) fL MCH (27.0-31.0) pg MCHC (32.0-36.0) g/dL RDW (12.0-15.0) % Plt Count (130-450) 10^3/uL MPV (7.9-10.8) fL Reticulocyte % (Auto) 5.88 H (0.5-2.3) % Neut # (Auto) (1.5-6.6) 10^3/uL Lymph # (Auto) (1.5-3.5) 10^3/uL [place] # (Auto) (0.0-1.0) 10^3/uL Eos # (Auto) (0.0-0.7) 10^3/uL Baso # (Auto) (0.0-0.1) 10^3/uL Absolute Nucleated RBC x10^3/uL Nucleated RBC % /100WBC Absolute Retic 0.154 H (0.020-0.110) 10^6/uL D-Dimer (200.0-255.0) ng/mL Sodium (135-145) mmol/L Potassium (3.5-5.0) mmol/L Chloride (101-111) mmol/L Carbon Dioxide (21-32) mmol/L Anion Gap (6-13) BUN (6-20) mg/dL Creatinine (0.4-1.0) mg/dL Estimated GFR (MDRD) (>89) Glucose (70-100) mg/dL Lactic Acid (0.5-2.2) mmol/L Calcium (8.5-10.3) mg/dL Iron (28-170) ug/dL TIBC (250-450) ug/dL % Saturation (20-50) % Transferrin (192-382) mg/dL Ferritin (11.0-306.8) ng/mL Total Bilirubin (0.2-1.0) mg/dL Direct Bilirubin (0.1-0.5) mg/dL Indirect Bilirubin mg/dL Lactate Dehydrogenase 157 (91-225) IU/L Vitamin B12 (180-914) pg/mL TSH (0.34-5.60) uIU/mL Blood Type Blood Type Recheck Antibody Screen Crossmatch IS Only ABX Reporting Has patient been on IV antibiotics over the past 48 hours?: Yes Sepsis Event Note (H) - Evaluation Current Stage of Sepsis: Sepsis Possible source of Sepsis: positive: Genitourinary - Sepsis Criteria Sepsis Criteria: Recorded Heart Rate greater than 90 bpm, WBC count greater than 12,000 or less than 4000, SBP less than 90 mmHg Assessment/Plan - Problem List (1) Sepsis Impression: 12/20 pt's lactic acid is down to 1.9, SBP is around 97, it is better. continue treat with antibiotics continue IVF of NS tele and vital monitor pt present hypotension at admission, lactic acid to 5.7, tachycardia at admission, UA reveals UTI, WBC was 17. treat with antibiotics Rocephin IVF of NS tele and vital monitor recheck Lactic acid (2) UTI (urinary tract infection) Conclusion/Plan: continue treat with antibiotics UA analysis reveals positive UTI, WBC is 17 followup UA culture and sensitive study start with Rocephin, according to her hx of UTI and sensitivity study (3) Acute kidney injury Conclusion/Plan: 12/20 creatinine is 1.3 now, it is improved continue IVF of NS continue lab monitor creatinine is 1.5 from her baseline 0.7, acute kidney injury, it seems form her severe dehydration IVF of NS lab monitor hold nephro-toxical agent (4) Fracture dislocation of shoulder joint Conclusion/Plan: 12/20 consult with orthopedics and followup left humeral head fracture, consult with orthopedics surgeon and followup Pain control, will add Splint per surgeon (5) Fall Conclusion/Plan: pt is living at [facility]. I discussed with pt's caregiver how to prevent fall to pt. will continue support (6) Hypothyroidism Conclusion/Plan: normal TSH, continue home meds will check TSH and reconcile pt's home meds (7) History of developmental delay Conclusion/Plan: pt is aphasia, will continue support pt and nurse care to pt (8) Hx of macrocytic anemia Conclusion/Plan: 12/20 HGB is 6.2 today, blood transfusion two unit of blood Occult test is negative for GI bleed, order indirect Bili, LDH, and Haptoglobin to R/O hemolytic anemia. anemia study does not reveals iron deficiency, or B12 or folate deficiency anemia continue lab monitor pt's HGB is 8.4, hx of anemia, MCV is 97. pt has no GI bleed reported will do anemia study. lab monitor Qualifiers: Sepsis type: sepsis due to unspecified organism Qualified Code(s): A41.9 - Sepsis, unspecified organism (4) Fracture dislocation of shoulder joint Qualifiers: Encounter type: initial encounter Fracture type: closed Laterality: left Qualified Code(s): S42.92XA - Fracture of left shoulder girdle, part unspecified, initial encounter for closed fracture (5) Fall Qualifiers: Encounter type: initial encounter Qualified Code(s): W19.XXXA - Unspecified fall, initial encounter
[2018-12-20] MEDS: SODIUM CHLORIDE 0.9% 1,000 ML IV SCH (18:40)
[2018-12-20 19:06] LABS: HGB - HEMOGLOBIN 9.6 g/dL (12.0-16.0)
[2018-12-20] MEDS: FERROUS SULFATE 325 MG TABLET PO SCH (20:31)
[2018-12-20] MEDS: QUEtiapine 25 MG TABLET PO SCH (20:31)
[2018-12-21] MEDS: MORPHINE 2 MG/ML CARPUJECT IVP PRN (00:54)
[2018-12-21] MEDS: SODIUM CHLORIDE FLUSH 0.9% 10 ML SYRINGE IVP SCH ×3 (01:32→20:24)
[2018-12-21] MEDS: SODIUM CHLORIDE 0.9% 1,000 ML IV SCH (05:29)
[2018-12-21 05:44] LABS: BASOPHILS % (AUTO) 0.2 %; LYMPHOCYTES # (AUTO) 1.4 10^3/uL (1.5-3.5); LYMPHOCYTES % (AUTO) 14.8 %; MEAN CORPUSCULAR HEMOGLOBIN 31.5 pg (27.0-31.0); MEAN CORPUSCULAR HGB CONC 34.7 g/dL (32.0-36.0); MEAN CORPUSCULAR VOLUME 90.7 fL (81.0-99.0); MEAN PLATELET VOLUME 7.2 fL (7.9-10.8); MONOCYTES % (AUTO) 10.3 %; NEUTROPHILS % (AUTO) 74.7 %; PLT - PLATELET COUNT 102 10^3/uL (130-450); RED BLOOD COUNT 2.85 10^6/uL (4.20-5.40); RED CELL DISTRIBUTION WIDTH 15.9 % (12.0-15.0); WHITE BLOOD COUNT 9.3 x10^3/uL (4.8-10.8)
[2018-12-21 05:46] LABS: CALCIUM 7.6 mg/dL (8.5-10.3); CREATININE 0.8 mg/dL (0.4-1.0)
[2018-12-21] MEDS: oxyCODONE 5 MG TABLET PO PRN ×2 (06:04→20:22)
[2018-12-21] MEDS: LEVOTHYROXINE 25 MCG TABLET PO SCH (06:05)
[2018-12-21] MEDS: CHOLECALCIFEROL 1,000 UNIT TABLET PO SCH (07:47)
[2018-12-21] MEDS: HEPARIN 5,000 UNIT/ML VIAL SUBQ SCH ×2 (07:47→20:25)
[2018-12-21] MEDS: CALCIUM CITRATE 250 MG TABLET PO SCH (07:49)
[2018-12-21] MEDS: FAMOTIDINE 20 MG TABLET PO SCH (07:50)
[2018-12-21] MEDS: DIVALPROEX DR 250 MG TABLET PO SCH ×2 (07:50→20:22)
[2018-12-21] MEDS: FERROUS SULFATE 325 MG TABLET PO SCH (07:51)
[2018-12-21] MEDS: SERTRALINE 50 MG TABLET PO SCH (07:51)
[2018-12-21] MEDS: ASPIRIN CHEW 81 MG TABLET PO SCH (07:51)
[2018-12-21] MEDS: POLYETHYLENE GLYCOL 3350 17 GM PACKET PO SCH (08:00)
--- NOTE | 2018-12-21 10:39 | PROVIDER PROGRESS NOTE ---
Subjective - Prog Note Date Prog Note Date: 12/21/18 - Subjective Subjective: pt has more alert and active today and she hold the content to drink ensure by herself. pt has no fever. Current Medications - Current Medications Current Medications: Active Medications Acetaminophen (Tylenol) 650 mg PO Q4HR PRN PRN Reason: Pain 1 to 4 Last Admin: 12/19/18 17:44 Dose: 650 mg Albuterol () 2.5 mg INH RTQ4H PRN PRN Reason: Wheezing Albuterol/Ipratropium (Duoneb) 3 ml INH Q4HR PRN PRN Reason: Wheezing Aspirin ([place] Aspirin) 81 mg PO DAILY [facility] Last Admin: 12/21/18 07:51 Dose: 81 mg Calcium Citrate () 250 mg PO DAILY [facility] Last Admin: 12/21/18 07:49 Dose: 250 mg Cholecalciferol (Vitamin D3) 1,000 unit PO DAILY [facility] Last Admin: 12/21/18 07:47 Dose: 1,000 unit Divalproex Sodium (Depakote Dr) 1,000 mg PO QPM [facility] Last Admin: 12/20/18 20:31 Dose: 1,000 mg Divalproex Sodium (Depakote Dr) 500 mg PO DAILY [facility] Last Admin: 12/21/18 07:50 Dose: 500 mg Famotidine (Pepcid) 20 mg PO DAILY [facility] Last Admin: 12/21/18 07:50 Dose: 20 mg Ferrous Sulfate (Feosol) 325 mg PO DAILYWM [facility] Last Admin: 12/21/18 07:51 Dose: 325 mg Heparin Sodium (Porcine) () 2,500 unit SUBQ BID [facility] Last Admin: 12/21/18 07:47 Dose: 2,500 unit Ceftriaxone Sodium 1 gm/ (Sodium Chloride) 100 mls @ 200 mls/hr IV Q24H [facility] Sodium Chloride (Normal Saline 0.9%) 1,000 mls @ 75 mls/hr IV .[id number] [facility] Stop: 12/21/18 21:13 Last Admin: 12/21/18 05:29 Dose: 75 mls/hr Levothyroxine Sodium (Synthroid) 50 mcg PO QDAC [facility] Last Admin: 12/21/18 06:05 Dose: 50 mcg Morphine Sulfate (Morphine (Carpuject)) 2 mg IVP Q2HR PRN PRN Reason: Pain 8 to 10 Last Admin: 12/21/18 00:54 Dose: 2 mg Ondansetron HCl (Zofran Inj) 4 mg IVP Q6HR PRN PRN Reason: Nausea / Vomiting Oxycodone HCl (Roxicodone) 5 mg PO Q4HR PRN PRN Reason: Pain 5 to 7 Last Admin: 12/21/18 06:04 Dose: 5 mg Polyethylene Glycol (Miralax) 17 gm PO DAILY [facility] Last Admin: 12/21/18 08:00 Dose: 17 gm Quetiapine Fumarate (Seroquel) 50 mg PO QPM [facility] Last Admin: 12/20/18 20:31 Dose: 50 mg Sertraline HCl (Zoloft) 200 mg PO DAILY [facility] Last Admin: 12/21/18 07:51 Dose: 200 mg Sodium Chloride (Normal Saline Flush 0.9%) 10 ml IVP PRN PRN PRN Reason: NEEDED PER PROVIDER ORDERS Sodium Chloride (Normal Saline Flush 0.9%) 10 ml IVP 0100,0900,1700 [facility] Last Admin: 12/21/18 07:56 Dose: Not Given Cholecalciferol (Vitamin D3) [Vitamin D] 1,000 units PO DAILY 04/09/14 Lovastatin [Altoprev] 20 mg PO DAILY PM 04/09/14 Docusate Sodium 100 mg PO BID 10/06/17 Potassium Chloride [Micro-K] 10 meq PO DAILY 10/06/17 Ascorbic Acid [Vitamin C] 500 mg PO BID 12/19/18 Aspirin [Adult Low Dose Aspirin EC] 81 mg PO DAILY 12/19/[address] Celina Samuel] 1,000 mg PO DAILY PM 12/19/[address] Celina Samuel] 500 mg PO DAILY 12/19/18 Levothyroxine [Synthroid] 50 mcg PO DAILY 12/19/18 QUEtiapine [SEROquel] 12.5 mg PO DAILY 12/19/18 QUEtiapine [SEROquel] 50 mg PO DAILY PM 12/19/18 Sertraline [Zoloft] 200 mg PO DAILY 12/19/18 hydrOXYzine HCl [Hydroxyzine HCl] 25 mg PO TID PRN 12/19/18 Objective - Vital Signs/Intake & Output Reviewed Vital Signs: Yes Vital Signs: Vital Signs x48h Temp Pulse Resp BP Pulse Ox 12/21/18 09:11 95 12/21/18 07:58 36.8 C 100 18 113/78 93 12/21/18 05:00 36.3 C L 96 18 115/50 L 100 Intake & Output: Intake & Output 12/18/18 12/19/18 12/20/18 12/21/18 23:59 23:59 23:59 23:59 Intake Total 2855.417 3283.333 1256.667 Balance 2855.417 3283.333 1256.667 - Objective General Appearance: positive: No acute distress, Alert. negative: Lethargic Eyes Bilateral: positive: Normal inspection, PERRL, No lid inflammation, Conjunctivae nml ENT: positive: ENT inspection nml, Pharynx nml, No signs of dehydration. negative: Purulent nasal drainage, Pharyngeal erythema, Oral lesions Neck: positive: Nml inspection, Thyroid nml, No JVD, Trachea midline. negative: Thyromegaly, Lymphadenopathy (R), Lymphadenopathy (L), Stiff neck, Swelling/bruising, Tracheal deviation Respiratory: positive: Chest non-tender, No respiratory distress, Breath sounds nml. negative: Wheezes, Rales, Rhonchi Cardiovascular: positive: Regular rate & rhythm, No murmur, No gallop. negative: Irregularly irregular, Extrasystoles, Tachycardia, Bradycardia, JVD present, Systolic murmur, Diastolic murmur Peripheral Pulses: 2+ Radial (R), 2+ Radial (L), 2+ Dorsalis pedis (R), 2+ Dorsalis pedis (L) Abdomen: positive: Non-tender, No organomegaly, Nml bowel sounds, No distention. negative: Tenderness, Guarding, Rebound Back: positive: Nml inspection Skin: positive: Color nml, No rash, Warm, Dry. negative: Cyanosis, Diaphoresis, Pallor Extremities: negative: Calf tenderness, Radha's sign/cords Neurologic/Psychiatric: negative: Sensory loss, Facial droop - Lab Results Fish Bones: 12/21/18 04:50 12/21/18 04:50 Other Labs: Lab Results x24hrs 12/21/18 12/21/18 12/20/18 Range/Units 04:50 04:50 18:54 WBC 9.3 (4.8-10.8) x10^3/uL RBC 2.85 L (4.20-5.40) 10^6/uL Hgb 9.0 L (12.0-16.0) g/dL Hct 25.8 L (37.0-47.0) % MCV 90.7 (81.0-99.0) fL MCH 31.5 H (27.0-31.0) pg MCHC 34.7 (32.0-36.0) g/dL RDW 15.9 H (12.0-15.0) % Plt Count 102 L (130-450) 10^3/uL MPV 7.2 L (7.9-10.8) fL Neut # (Auto) 7.0 H (1.5-6.6) 10^3/uL Lymph # (Auto) 1.4 L (1.5-3.5) 10^3/uL Lyman # (Auto) 1.0 (0.0-1.0) 10^3/uL Eos # (Auto) 0.0 (0.0-0.7) 10^3/uL Baso # (Auto) 0.0 (0.0-0.1) 10^3/uL Absolute Nucleated RBC 0.01 x10^3/uL Nucleated RBC % 0.1 /100WBC D-Dimer (200.0-255.0) ng/mL Sodium 140 (135-145) mmol/L Potassium 4.3 (3.5-5.0) mmol/L Chloride 107 (101-111) mmol/L Carbon Dioxide 25 (21-32) mmol/L Anion Gap 8.0 (6-13) BUN 29 H (6-20) mg/dL Creatinine 0.8 (0.4-1.0) mg/dL Estimated GFR (MDRD) 72 L (>89) Glucose 96 (70-100) mg/dL Calcium 7.6 L (8.5-10.3) mg/dL Cortisol 4pm Sample 19.8 ug/dL Blood Type Antibody Screen Crossmatch IS Only 12/20/18 12/20/18 12/20/18 Range/Units 18:54 11:15 07:50 WBC (4.8-10.8) x10^3/uL RBC (4.20-5.40) 10^6/uL Hgb 9.6 L (12.0-16.0) g/dL Hct 28.1 L (37.0-47.0) % MCV (81.0-99.0) fL MCH (27.0-31.0) pg MCHC (32.0-36.0) g/dL RDW (12.0-15.0) % Plt Count (130-450) 10^3/uL MPV (7.9-10.8) fL Neut # (Auto) (1.5-6.6) 10^3/uL Lymph # (Auto) (1.5-3.5) 10^3/uL Lyman # (Auto) (0.0-1.0) 10^3/uL Eos # (Auto) (0.0-0.7) 10^3/uL Baso # (Auto) (0.0-0.1) 10^3/uL Absolute Nucleated RBC x10^3/uL Nucleated RBC % /100WBC D-Dimer 422.9 H (200.0-255.0) ng/mL Sodium (135-145) mmol/L Potassium (3.5-5.0) mmol/L Chloride (101-111) mmol/L Carbon Dioxide (21-32) mmol/L Anion Gap (6-13) BUN (6-20) mg/dL Creatinine (0.4-1.0) mg/dL Estimated GFR (MDRD) (>89) Glucose (70-100) mg/dL Calcium (8.5-10.3) mg/dL Cortisol 4pm Sample ug/dL Blood Type A POSITIVE Antibody Screen NEGATIVE Crossmatch IS Only See Detail ABX Reporting Has patient been on IV antibiotics over the past 48 hours?: Yes Sepsis Event Note (H) - Evaluation Current Stage of Sepsis: Sepsis Possible source of Sepsis: positive: Genitourinary - Sepsis Criteria Sepsis Criteria: Recorded Heart Rate greater than 90 bpm, WBC count greater than 12,000 or less than 4000, SBP less than 90 mmHg Assessment/Plan - Problem List (1) Sepsis Impression: 12/21 improved. WBC is 9.3 now. pt is more alert and active. BP is stable continue Rocephin, slight IVF of NS continue lab and vital monitor 12/20 pt's lactic acid is down to 1.9, SBP is around 97, it is better. continue treat with antibiotics continue IVF of NS tele and vital monitor pt present hypotension at admission, lactic acid to 5.7, tachycardia at admission, UA reveals UTI, WBC was 17. treat with antibiotics Rocephin IVF of NS tele and vital monitor recheck Lactic acid (2) UTI (urinary tract infection) Conclusion/Plan: continue treat with antibiotics UA analysis reveals positive UTI, WBC is 17 followup UA culture and sensitive study start with Rocephin, according to her hx of UTI and sensitivity study (3) Acute kidney injury Conclusion/Plan: 12/21 great improved. Today Creatinine is 0.8, as pt's baseline continue slight hydration, and lab monitor 12/20 creatinine is 1.3 now, it is improved continue IVF of NS continue lab monitor creatinine is 1.5 from her baseline 0.7, acute kidney injury, it seems form her severe dehydration IVF of NS lab monitor hold nephro-toxical agent (4) Fracture dislocation of shoulder joint Conclusion/Plan: 12/21 followup orthopedics consult, pain control 12/20 consult with orthopedics and followup left humeral head fracture, consult with orthopedics surgeon and followup Pain control, will add Splint per surgeon (5) Fall Conclusion/Plan: pt is living at community care home. I discussed with pt's caregiver how to prevent fall to pt. will continue support (6) Hypothyroidism Conclusion/Plan: normal TSH, continue home meds will check TSH and reconcile pt's home meds (7) History of developmental delay Conclusion/Plan: pt is aphasia, will continue support pt and nurse care to pt (8) Hx of macrocytic anemia and pancytopenia Conclusion/Plan: 12/21 HGB is 9.0 after she had two unit of blood. hemolytic study is pending. pt's Plt is down to 102 from 201 continue lab monitor advise pt's guardian let pt followup hemotologist after d/c as out-pt 12/20 HGB is 6.2 today, blood transfusion two unit of blood Occult test is negative for GI bleed, order indirect Bili, LDH, and Haptoglobin to R/O hemolytic anemia. anemia study does not reveals iron deficiency, or B12 or folate deficiency anemia continue lab monitor pt's HGB is 8.4, hx of anemia, MCV is 97. pt has no GI bleed reported will do anemia study. lab monitor (9) dysphagia pt report pt has difficult to swallow, it appear to be caused by her chronic medical condition, developed delay consult with ST, will followup Qualifiers: Sepsis type: sepsis due to unspecified organism Qualified Code(s): A41.9 - Sepsis, unspecified organism (3) Fall Qualifiers: Encounter type: initial encounter Qualified Code(s): W19.XXXA - Unspecified fall, initial encounter (4) Fracture dislocation of shoulder joint Qualifiers: Encounter type: initial encounter Fracture type: closed Laterality: left Qualified Code(s): S42.92XA - Fracture of left shoulder girdle, part unspecified, initial encounter for closed fracture
[2018-12-21] MEDS: cefTRIAXone 1 GM in SODIUM CHLORIDE 0.9% MINIBAG 100 ML IV SCH (12:12)
--- NOTE | 2018-12-21 12:13 | PROVIDER PROGRESS NOTE ---
Subjective - Prog Note Date Prog Note Date: 12/21/18 Prog Note Time: 12:11 - Subjective Pt reports feeling: No change Objective - Vital Signs/Intake & Output Vital Signs: Vital Signs x48h Temp Pulse Resp BP Pulse Ox 12/21/18 09:11 95 12/21/18 07:58 36.8 C 100 18 113/78 93 12/21/18 05:00 36.3 C L 96 18 115/50 L 100 Intake & Output: Intake & Output 12/18/18 12/19/18 12/20/18 12/21/18 23:59 23:59 23:59 23:59 Intake Total 2855.417 3283.333 1256.667 Balance 2855.417 3283.333 1256.667 - Lab Results Fish Bones: 12/21/18 04:50 12/21/18 04:50 Other Labs: Lab Results x24hrs 12/21/18 12/21/18 12/20/18 Range/Units 04:50 04:50 18:54 WBC 9.3 (4.8-10.8) x10^3/uL RBC 2.85 L (4.20-5.40) 10^6/uL Hgb 9.0 L (12.0-16.0) g/dL Hct 25.8 L (37.0-47.0) % MCV 90.7 (81.0-99.0) fL MCH 31.5 H (27.0-31.0) pg MCHC 34.7 (32.0-36.0) g/dL RDW 15.9 H (12.0-15.0) % Plt Count 102 L (130-450) 10^3/uL MPV 7.2 L (7.9-10.8) fL Neut # (Auto) 7.0 H (1.5-6.6) 10^3/uL Lymph # (Auto) 1.4 L (1.5-3.5) 10^3/uL [place]leigh # (Auto) 1.0 (0.0-1.0) 10^3/uL Eos # (Auto) 0.0 (0.0-0.7) 10^3/uL Baso # (Auto) 0.0 (0.0-0.1) 10^3/uL Absolute Nucleated RBC 0.01 x10^3/uL Nucleated RBC % 0.1 /100WBC Sodium 140 (135-145) mmol/L Potassium 4.3 (3.5-5.0) mmol/L Chloride 107 (101-111) mmol/L Carbon Dioxide 25 (21-32) mmol/L Anion Gap 8.0 (6-13) BUN 29 H (6-20) mg/dL Creatinine 0.8 (0.4-1.0) mg/dL Estimated GFR (MDRD) 72 L (>89) Glucose 96 (70-100) mg/dL Calcium 7.6 L (8.5-10.3) mg/dL Cortisol 4pm Sample 19.8 ug/dL Blood Type Antibody Screen Crossmatch IS Only 12/20/18 12/20/18 Range/Units 18:54 07:50 WBC (4.8-10.8) x10^3/uL RBC (4.20-5.40) 10^6/uL Hgb 9.6 L (12.0-16.0) g/dL Hct 28.1 L (37.0-47.0) % MCV (81.0-99.0) fL MCH (27.0-31.0) pg MCHC (32.0-36.0) g/dL RDW (12.0-15.0) % Plt Count (130-450) 10^3/uL MPV (7.9-10.8) fL Neut # (Auto) (1.5-6.6) 10^3/uL Lymph # (Auto) (1.5-3.5) 10^3/uL [place] # (Auto) (0.0-1.0) 10^3/uL Eos # (Auto) (0.0-0.7) 10^3/uL Baso # (Auto) (0.0-0.1) 10^3/uL Absolute Nucleated RBC x10^3/uL Nucleated RBC % /100WBC Sodium (135-145) mmol/L Potassium (3.5-5.0) mmol/L Chloride (101-111) mmol/L Carbon Dioxide (21-32) mmol/L Anion Gap (6-13) BUN (6-20) mg/dL Creatinine (0.4-1.0) mg/dL Estimated GFR (MDRD) (>89) Glucose (70-100) mg/dL Calcium (8.5-10.3) mg/dL Cortisol 4pm Sample ug/dL Blood Type A POSITIVE Antibody Screen NEGATIVE Crossmatch IS Only See Detail - Other Results/Comments Other Results/Comments: Left shoulder: contour nearly symmetrical with right. Mildly tender. Still with some pain with motion (although reportedly shout out with motion even preinjury) Sepsis Event Note (H) - Evaluation Current Stage of Sepsis: Sepsis Possible source of Sepsis: positive: Genitourinary - Sepsis Criteria Sepsis Criteria: Recorded Heart Rate greater than 90 bpm, WBC count greater than 12,000 or less than 4000, SBP less than 90 mmHg Assessment/Plan - Problem List (1) Fracture dislocation of shoulder joint Impression: Stasble PLAN: sling for comfort. Consider PT in about a week for AAROM of left shoulder (although her baseline functioning is low). Follow up in clinic in about 7-10 days for new XR. Qualifiers: Encounter type: initial encounter Fracture type: closed Laterality: left Qualified Code(s): S42.92XA - Fracture of left shoulder girdle, part unspecified, initial encounter for closed fracture
[2018-12-21] MEDS: QUEtiapine 25 MG TABLET PO SCH (20:22)
[2018-12-22] MEDS: SODIUM CHLORIDE FLUSH 0.9% 10 ML SYRINGE IVP SCH ×3 (01:18→18:37)
[2018-12-22] MEDS: oxyCODONE 5 MG TABLET PO PRN ×3 (03:21→16:13)
[2018-12-22] MEDS ORDERED: MIN OIL/DIMETHICON/COCONUT OIL 92 GM TUBE TOP PRN (04:28)
[2018-12-22 05:40] LABS: BASOPHILS % (AUTO) 0.2 %; EOSINOPHILS % (AUTO) 0.1 %; HGB - HEMOGLOBIN 9.5 g/dL (12.0-16.0); LYMPHOCYTES # (AUTO) 1.2 10^3/uL (1.5-3.5); MEAN CORPUSCULAR HEMOGLOBIN 31.1 pg (27.0-31.0); MEAN CORPUSCULAR VOLUME 91.3 fL (81.0-99.0); MEAN PLATELET VOLUME 7.1 fL (7.9-10.8); MONOCYTES # (AUTO) 0.8 10^3/uL (0.0-1.0); MONOCYTES % (AUTO) 8.7 %; NEUTROPHILS # (AUTO) 7.7 10^3/uL (1.5-6.6); PLT - PLATELET COUNT 110 10^3/uL (130-450); RED BLOOD COUNT 3.05 10^6/uL (4.20-5.40); WHITE BLOOD COUNT 9.7 x10^3/uL (4.8-10.8)
[2018-12-22 05:51] LABS: CREATININE 0.7 mg/dL (0.4-1.0)
[2018-12-22] MEDS: LEVOTHYROXINE 25 MCG TABLET PO SCH (06:38)
--- NOTE | 2018-12-22 08:46 | XRAY Report ---
Reason: SOB Procedure Date: 12/22/2018 Accession Number: [id number] / [id number] Procedure: XR - Chest 1 View X-Ray CPT Code: 22027 FULL RESULT: EXAM: CHEST RADIOGRAPHY EXAM DATE: 12/22/2018 08:10 AM. CLINICAL HISTORY: Shortness of breath. COMPARISON: CHEST 1 VIEW 12/20/2018 8:41 AM. TECHNIQUE: 1 view. FINDINGS: Lungs/Pleura: Low lung volumes with new mild bibasilar airspace disease, in part due to atelectasis is seen. Appearance is slightly worse on the right side including volume loss. Minimal right pleural effusion is suggested. Mediastinum: Within exam limitations, the cardiomediastinal contour is normal. Other: None. IMPRESSION: New mild to moderate bibasilar airspace disease and volume loss, right side greater than left side. RADIA
[2018-12-22] MEDS ORDERED: FUROSEMIDE 20 MG/2 ML VIAL IVP SCH (10:00)
[2018-12-22] MEDS: SERTRALINE 50 MG TABLET PO SCH (10:35)
[2018-12-22] MEDS: ASPIRIN CHEW 81 MG TABLET PO SCH (10:36)
[2018-12-22] MEDS: FAMOTIDINE 20 MG TABLET PO SCH (10:36)
[2018-12-22] MEDS: CALCIUM CITRATE 250 MG TABLET PO SCH (10:36)
[2018-12-22] MEDS: POLYETHYLENE GLYCOL 3350 17 GM PACKET PO SCH (10:36)
[2018-12-22] MEDS: CHOLECALCIFEROL 1,000 UNIT TABLET PO SCH (10:36)
[2018-12-22] MEDS: DIVALPROEX DR 250 MG TABLET PO SCH ×2 (10:36→20:05)
[2018-12-22] MEDS: FERROUS SULFATE 325 MG TABLET PO SCH (10:36)
--- NOTE | 2018-12-22 10:38 | PROVIDER PROGRESS NOTE ---
Subjective - Prog Note Date Prog Note Date: 12/22/18 - Subjective Pt reports feeling: Improved Subjective: pt has a few words to talk with me. pt has developed delay as her baseline. I discussed with Pt's guaidian and child day care provider at the pt's bed, and answered all their concerns and questions. pt now request 1 liter of O2 with 93% sats. Now CXR reveals pneumonia, mainly at right low lobe, with slight effusion. Current Medications - Current Medications Current Medications: Active Medications Acetaminophen (Tylenol) 650 mg PO Q4HR PRN PRN Reason: Pain 1 to 4 Last Admin: 12/19/18 17:44 Dose: 650 mg Aspirin ([place] Aspirin) 81 mg PO DAILY [facility] Last Admin: 12/22/18 10:36 Dose: 81 mg Calcium Citrate () 250 mg PO DAILY [facility] Last Admin: 12/22/18 10:36 Dose: 250 mg Cholecalciferol (Vitamin D3) 1,000 unit PO DAILY [facility] Last Admin: 12/22/18 10:36 Dose: 1,000 unit Divalproex Sodium (Depakote Dr) 1,000 mg PO QPM [facility] Last Admin: 12/21/18 20:22 Dose: 1,000 mg Divalproex Sodium (Depakote Dr) 500 mg PO DAILY [facility] Last Admin: 12/22/18 10:36 Dose: 500 mg Famotidine (Pepcid) 20 mg PO DAILY [facility] Last Admin: 12/22/18 10:36 Dose: 20 mg Ferrous Sulfate (Feosol) 325 mg PO DAILYWM [facility] Last Admin: 12/22/18 10:36 Dose: 325 mg Furosemide (Lasix) 20 mg PO DAILY [facility] Heparin Sodium (Porcine) () 2,500 unit SUBQ BID [facility] Last Admin: 12/22/18 10:55 Dose: 2,500 unit Ceftriaxone Sodium 1 gm/ (Sodium Chloride) 100 mls @ 200 mls/hr IV Q24H [facility] Last Infusion: 12/22/18 13:54 Dose: Infused Azithromycin 500 mg/ Sodium (Chloride) 250 mls @ 250 mls/hr IV DAILY [facility] Last Infusion: 12/22/18 12:47 Dose: Infused Levothyroxine Sodium (Synthroid) 50 mcg PO QDAC [facility] Last Admin: 12/22/18 06:38 Dose: 50 mcg Mineral Oil (Cavilon) 1 applic TOP PRN PRN PRN Reason: Skin Care Last Admin: 12/22/18 06:38 Dose: 1 applic Morphine Sulfate (Morphine (Carpuject)) 2 mg IVP Q2HR PRN PRN Reason: Pain 8 to 10 Last Admin: 12/22/18 13:41 Dose: 2 mg Ondansetron HCl (Zofran Inj) 4 mg IVP Q6HR PRN PRN Reason: Nausea / Vomiting Oxycodone HCl (Roxicodone) 5 mg PO Q4HR PRN PRN Reason: Pain 5 to 7 Last Admin: 12/22/18 10:36 Dose: 5 mg Polyethylene Glycol (Miralax) 17 gm PO DAILY [facility] Last Admin: 12/22/18 10:36 Dose: 17 gm Quetiapine Fumarate (Seroquel) 50 mg PO QPM [facility] Last Admin: 12/21/18 20:22 Dose: 50 mg Sertraline HCl (Zoloft) 200 mg PO DAILY [facility] Last Admin: 12/22/18 10:35 Dose: 200 mg Sodium Chloride (Normal Saline Flush 0.9%) 10 ml IVP PRN PRN PRN Reason: NEEDED PER PROVIDER ORDERS Last Admin: 12/22/18 13:41 Dose: 10 ml Sodium Chloride (Normal Saline Flush 0.9%) 10 ml IVP 0100,0900,1700 [facility] Last Admin: 12/22/18 10:35 Dose: 10 ml Cholecalciferol (Vitamin D3) [Vitamin D] 1,000 units PO DAILY 04/09/14 Lovastatin [Altoprev] 20 mg PO DAILY PM 04/09/14 Docusate Sodium 100 mg PO BID 10/06/17 Potassium Chloride [Micro-K] 10 meq PO DAILY 10/06/17 Ascorbic Acid [Vitamin C] 500 mg PO BID 12/19/18 Aspirin [Adult Low Dose Aspirin [facility]] 81 mg PO DAILY 12/19/18 Divalproex [Karin Samuel] 1,000 mg PO DAILY PM 12/19/18 Divalproex [Karin Samuel] 500 mg PO DAILY 12/19/18 Levothyroxine [Synthroid] 50 mcg PO DAILY 12/19/18 QUEtiapine [SEROquel] 12.5 mg PO DAILY 12/19/18 QUEtiapine [SEROquel] 50 mg PO DAILY PM 12/19/18 Sertraline [Zoloft] 200 mg PO DAILY 12/19/18 hydrOXYzine HCl [Hydroxyzine HCl] 25 mg PO TID PRN 12/19/18 Objective - Vital Signs/Intake & Output Reviewed Vital Signs: Yes Vital Signs: Vital Signs x48h Temp Pulse Pulse Resp BP Pulse Ox 12/22/18 09:00 36.0 C L 94 17 125/62 94 12/22/18 08:13 37.1 C 100 18 93 12/22/18 05:00 37.1 C 101 H 18 139/69 H 93 Intake & Output: Intake & Output 12/19/18 12/20/18 12/21/18 12/22/18 23:59 23:59 23:59 23:59 Intake Total 2855.417 3283.333 3486.667 1100 Balance 2855.417 3283.333 3486.667 1100 - Objective General Appearance: positive: No acute distress, Alert. negative: Lethargic Eyes Bilateral: positive: Normal inspection, PERRL, No lid inflammation, Conjunctivae nml ENT: positive: ENT inspection nml, Pharynx nml, No signs of dehydration. negative: Purulent nasal drainage, Pharyngeal erythema, Oral lesions Neck: positive: Nml inspection, Thyroid nml, No JVD, Trachea midline. negative: Thyromegaly, Lymphadenopathy (R), Lymphadenopathy (L), Stiff neck, Swelling /bruising, Tracheal deviation Respiratory: positive: Chest non-tender, No respiratory distress. negative: Wheezes, Rales, Rhonchi Cardiovascular: positive: Regular rate & rhythm, No murmur, No gallop. negative: Irregularly irregular, Extrasystoles, Tachycardia, Bradycardia, JVD present, Systolic murmur, Diastolic murmur Peripheral Pulses: 2+ Radial (R), 2+ Radial (L), 2+ Dorsalis pedis (R), 2+ Dorsalis pedis (L) Abdomen: positive: Non-tender, No organomegaly, Nml bowel sounds, No distention. negative: Tenderness, Guarding, Rebound Back: positive: Nml inspection. negative: CVA tenderness (R), CVA tenderness (L) Skin: positive: Color nml, Warm, Dry, Other (slight edema at left dorsum of hand.). negative: Cyanosis, Diaphoresis, Pallor Extremities: positive: Joint swelling (at left shoulder). negative: Calf tend erness, Radha's sign/cords Neurologic/Psychiatric: negative: Weakness, Facial droop, Slurred/abnml speech - Lab Results Fish Bones: 12/22/18 05:15 12/22/18 05:15 Other Labs: Lab Results x24hrs 12/22/18 12/22/18 Range/Units 05:15 05:15 WBC 9.7 (4.8-10.8) x10^3/uL RBC 3.05 L (4.20-5.40) 10^6/uL Hgb 9.5 L (12.0-16.0) g/dL Hct 27.9 L (37.0-47.0) % MCV 91.3 (81.0-99.0) fL MCH 31.1 H (27.0-31.0) pg MCHC 34.0 (32.0-36.0) g/dL RDW 16.0 H (12.0-15.0) % Plt Count 110 L (130-450) 10^3/uL MPV 7.1 L (7.9-10.8) fL Neut # (Auto) 7.7 H (1.5-6.6) 10^3/uL Lymph # (Auto) 1.2 L (1.5-3.5) 10^3/uL [place] # (Auto) 0.8 (0.0-1.0) 10^3/uL Eos # (Auto) 0.0 (0.0-0.7) 10^3/uL Baso # (Auto) 0.0 (0.0-0.1) 10^3/uL Absolute Nucleated RBC 0.01 x10^3/uL Nucleated RBC % 0.1 /100WBC Sodium 140 (135-145) mmol/L Potassium 3.9 (3.5-5.0) mmol/L Chloride 106 (101-111) mmol/L Carbon Dioxide 27 (21-32) mmol/L Anion Gap 7.0 (6-13) BUN 23 H (6-20) mg/dL Creatinine 0.7 (0.4-1.0) mg/dL Estimated GFR (MDRD) 83 L (>89) Glucose 150 H (70-100) mg/dL Calcium 8.0 L (8.5-10.3) mg/dL ABX Reporting Has patient been on IV antibiotics over the past 48 hours?: Yes Sepsis Event Note (H) - Evaluation Current Stage of Sepsis: Sepsis Possible source of Sepsis: positive: Genitourinary - Sepsis Criteria Sepsis Criteria: Recorded Heart Rate greater than 90 bpm, WBC count greater than 12,000 or less than 4000, SBP less than 90 mmHg Assessment/Plan - Problem List (1) Sepsis Impression: 12/22 pt's BP is at WNL, WBC is 9.7, no fever was reported. continue antibiotics continue lab and vital monitor 12/21 improved. WBC is 9.3 now. pt is more alert and active. BP is stable continue Rocephin, slight IVF of NS continue lab and vital monitor 12/20 pt's lactic acid is down to 1.9, SBP is around 97, it is better. continue treat with antibiotics continue IVF of NS tele and vital monitor pt present hypotension at admission, lactic acid to 5.7, tachycardia at admission, UA reveals UTI, WBC was 17. treat with antibiotics Rocephin IVF of NS tele and vital monitor recheck Lactic acid (2) UTI (urinary tract infection) Conclusion/Plan: continue treat with antibiotics UA analysis reveals positive UTI, WBC is 17 followup UA culture and sensitive study start with Rocephin, according to her hx of UTI and sensitivity study (3) Acute kidney injury Conclusion/Plan: 12/22 resolved 12/21 great improved. Today Creatinine is 0.8, as pt's baseline continue slight hydration, and lab monitor 12/20 creatinine is 1.3 now, it is improved continue IVF of NS continue lab monitor creatinine is 1.5 from her baseline 0.7, acute kidney injury, it seems form her severe dehydration IVF of NS lab monitor hold nephro-toxical agent (4) Fracture dislocation of shoulder joint Conclusion/Plan: 12/22 orthopedics was consulted, and pt had sling now, will followup orthopedics incentive Spirometer 12/21 followup orthopedics consult, pain control 12/20 consult with orthopedics and followup left humeral head fracture, consult with orthopedics surgeon and followup Pain control, will add Splint per surgeon (5) Fall Conclusion/Plan: [facility] I discussed with pt's caregiver how to prevent fall to pt. will continue support (6) Hypothyroidism Conclusion/Plan: normal TSH, continue home meds will check TSH and reconcile pt's home meds (7) History of developmental delay Conclusion/Plan: pt is aphasia, will continue support pt and nurse care to pt (8) Hx of macrocytic anemia and pancytopenia Conclusion/Plan: 12/22 stable HGB 9.5 today, slight elevated PLt comparing with yesterday, today it is 110. continue lab monitor 12/21 HGB is 9.0 after she had two unit of blood. hemolytic study is pending. pt's Plt is down to 102 from 201 continue lab monitor advise pt's guardian let pt followup hemotologist after d/c as out-pt 12/20 HGB is 6.2 today, blood transfusion two unit of blood Occult test is negative for GI bleed, order indirect Bili, LDH, and Haptoglobin to R/O hemolytic anemia. anemia study does not reveals iron deficiency, or B12 or folate deficiency anemia continue lab monitor pt's HGB is 8.4, hx of anemia, MCV is 97. pt has no GI bleed reported will do anemia study. lab monitor (9) dysphagia 12/[address] recommendation, dysphagia diet, nurse care. Precaution of aspiration pt report pt has difficult to swallow, it appear to be caused by her chronic medical condition, developed delay consult with ST, will followup (10) pneumonia pt present respiratory distress with hypoxia. CXR reveals right low lobe pneumonia with small effusion add antibiotics azthyromycin plus Rocephin incentive Spirometer supplement of O2 as needed Qualifiers: Sepsis type: sepsis due to unspecified organism Qualified Code(s): A41.9 - Sepsis, unspecified organism (3) Fall Qualifiers: Encounter type: initial encounter Qualified Code(s): W19.XXXA - Unspecified fall, initial encounter (4) Fracture dislocation of shoulder joint Qualifiers: Encounter type: initial encounter Fracture type: closed Laterality: left Qualified Code(s): S42.92XA - Fracture of left shoulder girdle, part unspecified, initial encounter for closed fracture
[2018-12-22] MEDS: HEPARIN 5,000 UNIT/ML VIAL SUBQ SCH ×2 (10:55→22:17)
[2018-12-22] MEDS: AZITHROMYCIN INJ 500 MG in SODIUM CHLORIDE 0.9% 250 ML IV SCH (11:14)
--- NOTE | 2018-12-22 12:58 | PROVIDER PROGRESS NOTE ---
Assessment/Plan - Problem List (1) Fracture dislocation of shoulder joint Qualifiers: Encounter type: initial encounter Fracture type: closed Laterality: left Qualified Code(s): S42.92XA - Fracture of left shoulder girdle, part unspecified, initial encounter for closed fracture Assessment/Plan: Stable PLAN: No change in plans. Sling as needed. Follow up in clinic in 1-2 weeks for XR - Current Meds Current Meds: Current Medications Generic Name Dose Route Start Last Admin Trade Name Freq PRN Reason Stop Dose Admin Acetaminophen 650 mg 12/19/18 12:43 12/19/18 17:44 Tylenol PO 650 mg Q4HR PRN Administration Pain 1 to 4 Aspirin 81 mg 12/19/18 15:10 12/22/18 10:36 [place] Aspirin PO 81 mg DAILY [facility] Administration Calcium Citrate 250 mg 12/20/18 09:00 12/22/18 10:36 PO 250 mg DAILY [facility] Administration Cholecalciferol 1,000 unit 12/20/18 09:00 12/22/18 10:36 Vitamin D3 PO 1,000 unit DAILY [facility] Administration Divalproex Sodium 1,000 mg 12/19/18 21:00 12/21/18 20:22 Depakojuan Samuel PO 1,000 mg QPM [facility] Administration Divalproex Sodium 500 mg 12/20/18 09:00 12/22/18 10:36 Depalvaro Samuel PO 500 mg DAILY [facility] Administration Famotidine 20 mg 12/19/18 21:00 12/22/18 10:36 Pepcid PO 20 mg DAILY [facility] Administration Ferrous Sulfate 325 mg 12/20/18 19:00 12/22/18 10:36 Feosol PO 325 mg DAILYWM [facility] Administration Heparin Sodium (Porcine) 2,500 unit 12/19/18 21:00 12/22/18 10:55 SUBQ 2,500 unit BID [facility] Administration Ceftriaxone Sodium 1 gm/ 100 mls @ 200 mls/hr 12/21/18 12:00 12/21/18 13:00 Sodium Chloride IV Infused Q24H [facility] Infusion Azithromycin 500 mg/ Sodium 250 mls @ 250 mls/hr 12/22/18 10:00 12/22/18 12:47 Chloride IV Infused DAILY [facility] Infusion Levothyroxine Sodium 50 mcg 12/20/18 07:00 12/22/18 06:38 Synthroid PO 50 mcg QDAC [facility] Administration Mineral Oil 1 applic 12/22/18 04:28 12/22/18 06:38 Cavilon TOP 1 applic PRN PRN Administration Skin Care Morphine Sulfate 2 mg 12/19/18 12:43 12/21/18 00:54 Morphine (Carpuject) IVP 2 mg Q2HR PRN Administration Pain 8 to 10 Oxycodone HCl 5 mg 12/19/18 12:43 12/22/18 10:36 Roxicodone PO 5 mg Q4HR PRN Administration Pain 5 to 7 Polyethylene Glycol 17 gm 12/20/18 09:00 12/22/18 10:36 Miralax PO 17 gm DAILY [facility] Administration Quetiapine Fumarate 50 mg 12/19/18 21:00 12/21/18 20:22 Seroquel PO 50 mg QPM [facility] Administration Sertraline HCl 200 mg 12/20/18 09:00 12/22/18 10:35 Zoloft PO 200 mg DAILY [facility] Administration Sodium Chloride 10 ml 12/19/18 17:00 12/22/18 10:35 Normal Saline Flush 0.9% IVP 10 ml 0100,0900,1700 [facility] Administration - Lab Result Fish Bone Diagrams: 12/22/18 05:15 12/22/18 05:15 Objective Vital Signs: Vital Signs - 24 hr 12/21/18 12/21/18 12/21/18 15:43 19:15 20:36 Temperature 36.6 C 36.8 C Heart Rate 105 H Heart Rate [ 106 H 106 H Brachial] Respiratory 20 18 17 Rate Blood Pressure 137/68 H 137/73 H [Right Brachial artery] O2 Saturation 91 L 91 L 12/21/18 12/22/18 12/22/18 20:58 01:00 01:55 Temperature 36.9 C Heart Rate Heart Rate [ 105 H 110 H 105 H Brachial] Respiratory 18 Rate Blood Pressure 134/74 H [Right Brachial artery] O2 Saturation 94 92 95 12/22/18 12/22/18 12/22/18 05:00 08:13 09:00 Temperature 37.1 C 37.1 C 36.0 C L Heart Rate 100 Heart Rate [ 101 H 94 Brachial] Respiratory 18 18 17 Rate Blood Pressure 139/69 H 125/62 [Right Brachial artery] O2 Saturation 93 93 94 Oxygen O2 Source Nasal cannula I&O (Last 24 Hrs): Intake and Output Totals x24h 12/20/18 12/21/18 12/22/18 23:59 23:59 23:59 Intake Total 3283.333 3486.667 1350 Balance 3283.333 3486.667 1350 - Results Results: Laboratory Results WBC 9.7 x10^3/uL (4.8-10.8) 12/22/18 05:15 RBC 3.05 10^6/uL (4.20-5.40) L 12/22/18 05:15 Hgb 9.5 g/dL (12.0-16.0) L 12/22/18 05:15 Hct 27.9 % (37.0-47.0) L 12/22/18 05:15 MCV 91.3 fL (81.0-99.0) 12/22/18 05:15 MCH 31.1 pg (27.0-31.0) H 12/22/18 05:15 MCHC 34.0 g/dL (32.0-36.0) 12/22/18 05:15 RDW 16.0 % (12.0-15.0) H 12/22/18 05:15 Plt Count 110 10^3/uL (130-450) L 12/22/18 05:15 MPV 7.1 fL (7.9-10.8) L 12/22/18 05:15 Reticulocyte % (Auto) 5.88 % (0.5-2.3) H 12/19/18 11:14 Neut # (Auto) 7.7 10^3/uL (1.5-6.6) H 12/22/18 05:15 Lymph # (Auto) 1.2 10^3/uL (1.5-3.5) L 12/22/18 05:15 Will # (Auto) 0.8 10^3/uL (0.0-1.0) 12/22/18 05:15 Eos # (Auto) 0.0 10^3/uL (0.0-0.7) 12/22/18 05:15 Baso # (Auto) 0.0 10^3/uL (0.0-0.1) 12/22/18 05:15 Absolute Nucleated RBC 0.01 x10^3/uL 12/22/18 05:15 Nucleated RBC % 0.1 /100WBC 12/22/18 05:15 Manual Slide Review Indicated 12/19/18 11:14 WBC Morphology NORMAL APPEARANCE (NORMAL) 12/19/18 11:14 Platelet Estimate NORMAL (130-450,000) (NORMAL) 12/19/18 11:14 Platelet Morphology NORMAL APPEARANCE (NORMAL) 12/19/18 11:14 RBC Morph Micro Appear 1+ POLYCHROMASIA (NORMAL) 1+ HYPOCHROMASIA (NORMAL) OVALOCYTES (NORMAL) 12/19/18 11:14 RBC Morph Micro Appear 1+ POLYCHROMASIA (NORMAL) 1+ HYPOCHROMASIA (NORMAL) OVALOCYTES (NORMAL) 12/19/18 11:14 RBC Morph Micro Appear 1+ POLYCHROMASIA (NORMAL) 1+ HYPOCHROMASIA (NORMAL) OVALOCYTES (NORMAL) 12/19/18 11:14 Absolute Retic 0.154 10^6/uL (0.020-0.110) H 12/19/18 11:14 D-Dimer 422.9 ng/mL (200.0-255.0) H 12/20/18 11:15 Sodium 140 mmol/L (135-145) 12/22/18 05:15 Potassium 3.9 mmol/L (3.5-5.0) 12/22/18 05:15 Chloride 106 mmol/L (101-111) 12/22/18 05:15 Carbon Dioxide 27 mmol/L (21-32) 12/22/18 05:15 Anion Gap 7.0 (6-13) 12/22/18 05:15 BUN 23 mg/dL (6-20) H 12/22/18 05:15 Creatinine 0.7 mg/dL (0.4-1.0) 12/22/18 05:15 Estimated GFR (MDRD) 83 (>89) L 12/22/18 05:15 Glucose 150 mg/dL (70-100) H 12/22/18 05:15 Lactic Acid 1.9 mmol/L (0.5-2.2) 12/19/18 15:10 Calcium 8.0 mg/dL (8.5-10.3) L 12/22/18 05:15 Magnesium 1.8 mg/dL (1.7-2.8) 12/19/18 10:33 Iron 74 ug/dL (28-170) 12/19/18 11:15 TIBC 239 ug/dL (250-450) L 12/19/18 11:15 % Saturation 31 % (20-50) 12/19/18 11:15 Transferrin 171 mg/dL (192-382) L 12/19/18 11:15 Ferritin 1100.7 ng/mL (11.0-306.8) H 12/19/18 15:06 Total Bilirubin 0.3 mg/dL (0.2-1.0) 12/20/18 04:25 Direct Bilirubin 0.1 mg/dL (0.1-0.5) 12/20/18 04:25 Indirect Bilirubin 0.2 mg/dL 12/20/18 04:25 AST 37 IU/L (10-42) 12/19/18 10:33 ALT 14 IU/L (10-60) 12/19/18 10:33 Alkaline Phosphatase 42 IU/L (42-121) 12/19/18 10:33 Lactate Dehydrogenase 131 IU/L (91-225) 12/20/18 04:25 Troponin I < 0.04 ng/mL (<0.49) 12/19/18 13:54 Total Protein 5.7 g/dL (6.7-8.2) L 12/19/18 10:33 Albumin 2.7 g/dL (3.2-5.5) L 12/19/18 10:33 Globulin 3.0 g/dL (2.1-4.2) 12/19/18 10:33 Albumin/Globulin Ratio 0.9 (1.0-2.2) L 12/19/18 10:33 Lipase 26 U/L (22-51) 12/19/18 10:33 Vitamin B12 551 pg/mL (180-914) 12/20/18 07:50 TSH 4.15 uIU/mL (0.34-5.60) 12/20/18 04:25 Cortisol 4pm Sample 19.8 ug/dL 12/20/18 18:54 Urine Color YELLOW 12/19/18 11:00 Urine Clarity HAZY (CLEAR) 12/19/18 11:00 Urine pH 6.0 PH (5.0-7.5) 12/19/18 11:00 Ur Specific [place] 1.020 (1.002-1.030) 12/19/18 11:00 Urine Protein 30 mg/dL (NEGATIVE) H 12/19/18 11:00 Urine Glucose (UA) NEGATIVE mg/dL (NEGATIVE) 12/19/18 11:00 Urine Ketones TRACE mg/dL (NEGATIVE) 12/19/18 11:00 Urine Occult Blood NEGATIVE (NEGATIVE) 12/19/18 11:00 Urine Nitrite POSITIVE (NEGATIVE) H 12/19/18 11:00 Urine Bilirubin NEGATIVE (NEGATIVE) 12/19/18 11:00 Urine Urobilinogen 2 E.U./dL (NORMAL) H 12/19/18 11:00 Ur Leukocyte Esterase SMALL (NEGATIVE) H 12/19/18 11:00 Urine RBC None Seen /HPF (0-5) 12/19/18 11:00 Urine WBC 4-5 /HPF (0-5) 12/19/18 11:00 Urine WBC Clumps PRESENT 12/19/18 11:00 Ur Squamous Epith Cells RARE Squamous (<= Few) 12/19/18 11:00 Urine Bacteria Moderate /HPF (None Seen) H 12/19/18 11:00 Urine Casts 0-2 Hyaline Casts /LPF 12/19/18 11:00 Urine Mucus Few Strands 12/19/18 11:00 Ur Microscopic Review INDICATED 12/19/18 11:00 Urine Culture Comments INDICATED 12/19/18 11:00 Last Dose Date 12/19/18 12/19/18 10:33 Last Dose Time 0800 12/19/18 10:33 Valproic Acid 39.6 ug/mL 12/19/18 10:33 Blood Type A POSITIVE 12/20/18 07:50 Blood Type Recheck A POSITIVE 12/20/18 04:15 Antibody Screen NEGATIVE 12/20/18 07:50 Crossmatch IS Only See Detail 12/20/18 07:50 Sepsis Event Note (H) - Evaluation Current Stage of Sepsis: Sepsis Possible source of Sepsis: positive: Genitourinary - Sepsis Criteria Sepsis Criteria: Recorded Heart Rate greater than 90 bpm, WBC count greater than 12,000 or less than 4000, SBP less than 90 mmHg
[2018-12-22] MEDS: cefTRIAXone 1 GM in SODIUM CHLORIDE 0.9% MINIBAG 100 ML IV SCH (13:21)
[2018-12-22] MEDS: MORPHINE 2 MG/ML CARPUJECT IVP PRN (13:41)
[2018-12-22] MEDS: SODIUM CHLORIDE FLUSH 0.9% 10 ML SYRINGE IVP PRN ×2 (13:41→20:06)
[2018-12-22] MEDS: ACETAMINOPHEN 325 MG TABLET PO PRN (16:13)
[2018-12-22] MEDS: QUEtiapine 25 MG TABLET PO SCH (20:05)
[2018-12-22] MEDS: KETOROLAC 15 MG/ML VIAL IVP PRN (20:05)
[2018-12-23] MEDS: SODIUM CHLORIDE FLUSH 0.9% 10 ML SYRINGE IVP SCH ×3 (02:34→15:46)
[2018-12-23] MEDS: SODIUM CHLORIDE FLUSH 0.9% 10 ML SYRINGE IVP PRN (05:33)
[2018-12-23] MEDS: KETOROLAC 15 MG/ML VIAL IVP PRN ×2 (05:33→16:53)
[2018-12-23] MEDS: LEVOTHYROXINE 25 MCG TABLET PO SCH (05:42)
[2018-12-23 05:52] LABS: BASOPHILS % (AUTO) 0.4 %; EOSINOPHILS % (AUTO) 0.5 %; HGB - HEMOGLOBIN 10.4 g/dL (12.0-16.0); LYMPHOCYTES % (AUTO) 19.1 %; MEAN CORPUSCULAR HEMOGLOBIN 31.4 pg (27.0-31.0); MEAN CORPUSCULAR HGB CONC 33.9 g/dL (32.0-36.0); MEAN CORPUSCULAR VOLUME 92.7 fL (81.0-99.0); MEAN PLATELET VOLUME 7.5 fL (7.9-10.8); MONOCYTES % (AUTO) 7.3 %; NEUTROPHILS % (AUTO) 72.7 %; PLT - PLATELET COUNT 86 10^3/uL (130-450); RED BLOOD COUNT 3.31 10^6/uL (4.20-5.40); RED CELL DISTRIBUTION WIDTH 16.1 % (12.0-15.0); WHITE BLOOD COUNT 8.6 x10^3/uL (4.8-10.8)
[2018-12-23 05:54] LABS: CALCIUM 8.4 mg/dL (8.5-10.3); CREATININE 0.7 mg/dL (0.4-1.0)
[2018-12-23 06:04] LABS: ABNORMAL LYMPHS % (MANUAL) 0 %
[2018-12-23 06:19] LABS: BAND NEUTROPHILS % (MANUAL) 12 %; BASOPHILS # (MANUAL) 0.2 10^3/uL (0-0.1); BASOPHILS % (MANUAL) 2 %; DIFFERENTIAL COMMENT MANUAL DIFFERENTIAL; EOSINOPHILS # (MANUAL) 0.1 10^3/uL (0-0.7); LYMPHOCYTES # (MANUAL) 1.4 10^3/uL (1.5-3.5); LYMPHOCYTES % (MANUAL) 16 %; METAMYELOCYTES % (MANUAL) 1 %; MONOCYTES # (MANUAL) 0.4 10^3/uL (0.0-1.0); MYELOCYTES % (MANUAL) 1 %; NEUTROPHILS # (MANUAL) 6.4 10^3/uL (1.5-6.6); NEUTROPHILS % (MANUAL) 62 %; PLATELET ESTIMATE, MANUAL DECREASED (<130,000) (NORMAL); RBC MORPHOLOGY (MULTIPLE) NORMAL APPEARANCE (NORMAL)
[2018-12-23] MEDS: oxyCODONE 5 MG TABLET PO PRN ×2 (06:30→10:18)
[2018-12-23] MEDS: MORPHINE 2 MG/ML CARPUJECT IVP PRN ×4 (08:15→18:49)
[2018-12-23] MEDS: HEPARIN 5,000 UNIT/ML VIAL SUBQ SCH ×2 (10:17→22:32)
[2018-12-23] MEDS: FAMOTIDINE 20 MG TABLET PO SCH (10:18)
[2018-12-23] MEDS: ASPIRIN CHEW 81 MG TABLET PO SCH (10:18)
[2018-12-23] MEDS: AZITHROMYCIN INJ 500 MG in SODIUM CHLORIDE 0.9% 250 ML IV SCH (10:18)
[2018-12-23] MEDS: POLYETHYLENE GLYCOL 3350 17 GM PACKET PO SCH (10:18)
[2018-12-23] MEDS: CHOLECALCIFEROL 1,000 UNIT TABLET PO SCH (10:18)
[2018-12-23] MEDS: SERTRALINE 50 MG TABLET PO SCH (10:19)
[2018-12-23] MEDS: CALCIUM CITRATE 250 MG TABLET PO SCH (10:19)
[2018-12-23] MEDS: FERROUS SULFATE 325 MG TABLET PO SCH (10:19)
[2018-12-23] MEDS: FUROSEMIDE 20 MG TABLET PO SCH (10:19)
[2018-12-23] MEDS: DIVALPROEX DR 250 MG TABLET PO SCH ×2 (10:19→22:36)
[2018-12-23] MEDS ORDERED: LORazepam 2 MG/ML VIAL IVP ONE (11:00)
[2018-12-23] MEDS: cefTRIAXone 1 GM in SODIUM CHLORIDE 0.9% MINIBAG 100 ML IV SCH (12:01)
--- NOTE | 2018-12-23 14:37 | PROVIDER PROGRESS NOTE ---
Subjective - Prog Note Date Prog Note Date: 12/23/18 - Subjective Pt reports feeling: Improved Subjective: pt's breath is better, pt has 95% sat on room air. swelling on left hand is reduced. No fever and chill are reported. pt enjoy to drink her ensure by her self without cough or difficult. pt present some agitation today, but when nurse, nurse tech and me present at her bed, she is quite and fell into sleep, no focus neurological deficit Current Medications - Current Medications Current Medications: Active Medications Acetaminophen (Tylenol) 650 mg PO Q4HR PRN PRN Reason: Pain 1 to 4 Last Admin: 12/22/18 16:13 Dose: 650 mg Aspirin ([place] Aspirin) 81 mg PO DAILY [facility] Last Admin: 12/23/18 10:18 Dose: 81 mg Calcium Citrate () 250 mg PO DAILY [facility] Last Admin: 12/23/18 10:19 Dose: 250 mg Cholecalciferol (Vitamin D3) 1,000 unit PO DAILY [facility] Last Admin: 12/23/18 10:18 Dose: 1,000 unit Divalproex Sodium (Depakote Dr) 1,000 mg PO QPM [facility] Last Admin: 12/22/18 20:05 Dose: 1,000 mg Divalproex Sodium (Depakote Dr) 500 mg PO DAILY [facility] Last Admin: 12/23/18 10:19 Dose: 500 mg Famotidine (Pepcid) 20 mg PO DAILY [facility] Last Admin: 12/23/18 10:18 Dose: 20 mg Ferrous Sulfate (Feosol) 325 mg PO DAILYWM [facility] Last Admin: 12/23/18 10:19 Dose: 325 mg Furosemide (Lasix) 20 mg PO DAILY [facility] Last Admin: 12/23/18 10:19 Dose: 20 mg Heparin Sodium (Porcine) () 2,500 unit SUBQ BID [facility] Last Admin: 12/23/18 10:17 Dose: 2,500 unit Ceftriaxone Sodium 1 gm/ (Sodium Chloride) 100 mls @ 200 mls/hr IV Q24H [facility] Last Infusion: 12/23/18 12:31 Dose: Infused Azithromycin 500 mg/ Sodium (Chloride) 250 mls @ 250 mls/hr IV DAILY [facility] Last Infusion: 12/23/18 11:38 Dose: Infused Ketorolac Tromethamine (Toradol Inj (15mg)) 15 mg IVP Q6HR PRN PRN Reason: PAIN Stop: 12/27/18 17:52 Last Admin: 12/23/18 05:33 Dose: 15 mg Levothyroxine Sodium (Synthroid) 50 mcg PO QDAC [facility] Last Admin: 12/23/18 05:42 Dose: 50 mcg Mineral Oil (Cavilon) 1 applic TOP PRN PRN PRN Reason: Skin Care Last Admin: 12/22/18 06:38 Dose: 1 applic Morphine Sulfate (Morphine (Carpuject)) 2 mg IVP Q2HR PRN PRN Reason: Pain 8 to 10 Last Admin: 12/23/18 12:39 Dose: 2 mg Ondansetron HCl (Zofran Inj) 4 mg IVP Q6HR PRN PRN Reason: Nausea / Vomiting Oxycodone HCl (Roxicodone) 5 mg PO Q4HR PRN PRN Reason: Pain 5 to 7 Last Admin: 12/23/18 10:18 Dose: 5 mg Polyethylene Glycol (Miralax) 17 gm PO DAILY [facility] Last Admin: 12/23/18 10:18 Dose: 17 gm Quetiapine Fumarate (Seroquel) 50 mg PO QPM [facility] Last Admin: 12/22/18 20:05 Dose: 50 mg Sertraline HCl (Zoloft) 200 mg PO DAILY [facility] Last Admin: 12/23/18 10:19 Dose: 200 mg Sodium Chloride (Normal Saline Flush 0.9%) 10 ml IVP PRN PRN PRN Reason: NEEDED PER PROVIDER ORDERS Last Admin: 12/23/18 05:33 Dose: 10 ml Sodium Chloride (Normal Saline Flush 0.9%) 10 ml IVP 0100,0900,1700 [facility] Last Admin: 12/23/18 08:15 Dose: 10 ml Cholecalciferol (Vitamin D3) [Vitamin D] 1,000 units PO DAILY 04/09/14 Lovastatin [Altoprev] 20 mg PO DAILY PM 04/09/14 Docusate Sodium 100 mg PO BID 10/06/17 Potassium Chloride [Micro-K] 10 meq PO DAILY 10/06/17 Ascorbic Acid [Vitamin C] 500 mg PO BID 12/19/18 Aspirin [Adult Low Dose Aspirin EC] 81 mg PO DAILY 12/19/18 Divalproex [Karin Samuel] 1,000 mg PO DAILY PM 12/19/[address] [Depakote Dr] 500 mg PO DAILY 12/19/18 Levothyroxine [Synthroid] 50 mcg PO DAILY 12/19/18 QUEtiapine [SEROquel] 12.5 mg PO DAILY 12/19/18 QUEtiapine [SEROquel] 50 mg PO DAILY PM 12/19/18 Sertraline [Zoloft] 200 mg PO DAILY 12/19/18 hydrOXYzine HCl [Hydroxyzine HCl] 25 mg PO TID PRN 12/19/18 Objective - Vital Signs/Intake & Output Reviewed Vital Signs: Yes Vital Signs: Vital Signs x48h Temp Pulse Resp BP Pulse Ox 12/23/18 12:49 37.2 C 94 20 121/59 L 95 12/23/18 08:18 36.7 C 87 18 122/79 92 Intake & Output: Intake & Output 12/20/18 12/21/18 12/22/18 12/23/18 23:59 23:59 23:59 23:59 Intake Total 3283.333 3486.667 1890 910 Balance 3283.333 3486.667 1890 910 - Objective General Appearance: positive: Alert, Mild distress. negative: Lethargic Eyes Bilateral: positive: Normal inspection, PERRL, No lid inflammation, Conjunctivae nml ENT: positive: ENT inspection nml, Pharynx nml, No signs of dehydration. nega tive: Purulent nasal drainage, Pharyngeal erythema, Oral lesions Neck: positive: Nml inspection, Thyroid nml, No JVD, Trachea midline. negative: Thyromegaly, Lymphadenopathy (R), Lymphadenopathy (L), Stiff neck, Swelling/bruising, Tracheal deviation Respiratory: positive: Chest non-tender, No respiratory distress. negative: Wheezes, Rales, Rhonchi Cardiovascular: positive: Regular rate & rhythm, No murmur, No gallop. n egative: Irregularly irregular, Extrasystoles, Tachycardia, Bradycardia, JVD present, Systolic murmur, Diastolic murmur Peripheral Pulses: 2+ Radial (R), 2+ Radial (L), 2+ Dorsalis pedis (R), 2+ Dorsalis pedis (L) Abdomen: positive: Non-tender, No organomegaly, Nml bowel sounds, No distention. negative: Tenderness, Guarding, Rebound Back: positive: Nml inspection. negative: CVA tenderness (R), CVA tenderness (L) Skin: positive: Color nml, No rash, Warm, Dry. negative: Cyanosis, Diaphoresis, Pallor Extremities: negative: Calf tenderness, Radha's sign/cords Neurologic/Psychiatric: negative: Facial droop - Lab Results Fish Bones: 12/23/18 05:15 12/23/18 05:15 Other Labs: Lab Results x24hrs 12/23/18 12/23/18 Range/Units 05:15 05:15 WBC 8.6 (4.8-10.8) x10^3/uL RBC 3.31 L (4.20-5.40) 10^6/uL Hgb 10.4 L (12.0-16.0) g/dL Hct 30.7 L (37.0-47.0) % MCV 92.7 (81.0-99.0) fL MCH 31.4 H (27.0-31.0) pg MCHC 33.9 (32.0-36.0) g/dL RDW 16.1 H (12.0-15.0) % Plt Count 86 L (130-450) 10^3/uL MPV 7.5 L (7.9-10.8) fL Neut # (Auto) Not Reportable Lymph # (Auto) Not Reportable [place] # (Auto) Not Reportable Eos # (Auto) Not Reportable Baso # (Auto) Not Reportable Absolute Nucleated RBC Not Reportable Total Counted 100 Band Neuts % (Manual) 12 H (0 - 10) % Abnorm Lymph % (Manual) 0 % Metamyelocytes % 1 H ( - 0) % Myelocytes % 1 H ( - 0) % Nucleated RBC % Not Reportable Neutrophils # (Manual) 6.4 (1.5-6.6) 10^3/uL Lymphocytes # (Manual) 1.4 L (1.5-3.5) 10^3/uL Monocytes # (Manual) 0.4 (0.0-1.0) 10^3/uL Eosinophils # (Manual) 0.1 (0-0.7) 10^3/uL Basophils # (Manual) 0.2 H (0-0.1) 10^3/uL Differential Comment MANUAL DIFFERENTIAL Platelet Estimate DECREASED (<130,000) (NORMAL) RBC Morph Micro Appear NORMAL APPEARANCE (NORMAL) Sodium 139 (135-145) mmol/L Potassium 3.8 (3.5-5.0) mmol/L Chloride 97 L (101-111) mmol/L Carbon Dioxide 32 (21-32) mmol/L Anion Gap 10.0 (6-13) BUN 21 H (6-20) mg/dL Creatinine 0.7 (0.4-1.0) mg/dL Estimated GFR (MDRD) 83 L (>89) Glucose 84 (70-100) mg/dL Calcium 8.4 L (8.5-10.3) mg/dL ABX Reporting Has patient been on IV antibiotics over the past 48 hours?: Yes Sepsis Event Note (H) - Evaluation Current Stage of Sepsis: Sepsis Possible source of Sepsis: positive: Genitourinary - Sepsis Criteria Sepsis Criteria: Recorded Heart Rate greater than 90 bpm, WBC count greater than 12,000 or less than 4000, SBP less than 90 mmHg Assessment/Plan - Problem List (1) Sepsis Impression: 12/23 blood culture is negative, no fever/chill, and WBC is normal now. continue to use antibiotics to treat pneumonia vital monitor 12/22 pt's BP is at WNL, WBC is 9.7, no fever was reported. continue antibiotics continue lab and vital monitor 12/21 improved. WBC is 9.3 now. pt is more alert and active. BP is stable continue Rocephin, slight IVF of NS continue lab and vital monitor 12/20 pt's lactic acid is down to 1.9, SBP is around 97, it is better. continue treat with antibiotics continue IVF of NS tele and vital monitor pt present hypotension at admission, lactic acid to 5.7, tachycardia at admission, UA reveals UTI, WBC was 17. treat with antibiotics Rocephin IVF of NS tele and vital monitor recheck Lactic acid (2) UTI (urinary tract infection) Conclusion/Plan: continue treat with antibiotics UA analysis reveals positive UTI, WBC is 17 followup UA culture and sensitive study start with Rocephin, according to her hx of UTI and sensitivity study (3) Acute kidney injury Conclusion/Plan: 12/22 resolved 12/21 great improved. Today Creatinine is 0.8, as pt's baseline continue slight hydration, and lab monitor 12/20 creatinine is 1.3 now, it is improved continue IVF of NS continue lab monitor creatinine is 1.5 from her baseline 0.7, acute kidney injury, it seems form her severe dehydration IVF of NS lab monitor hold nephro-toxical agent (4) Fracture dislocation of shoulder joint Conclusion/Plan: 12/23 continue Sling on pt's left hand and shoulder, followup orthopedics surgeon continue pain management 12/22 orthopedics was consulted, and pt had sling now, will followup orthopedics incentive Spirometer 12/21 followup orthopedics consult, pain control 12/20 consult with orthopedics and followup left humeral head fracture, consult with orthopedics surgeon and followup Pain control, will add Splint per surgeon (5) Fall Conclusion/Plan: [facility]. I discussed with pt's caregiver how to prevent fall to pt. will continue support (6) Hypothyroidism Conclusion/Plan: normal TSH, continue home meds will check TSH and reconcile pt's home meds (7) History of developmental delay Conclusion/Plan: pt is aphasia, will continue support pt and nurse care to pt (8) Hx of macrocytic anemia and pancytopenia Conclusion/Plan: 12/23 pt's HGB increase to 10.4 from 9.5 on yesterday, but plt decrease to 86 from 110, and in CBC it reveals metamyelocytes and myelocytes cells will continue lab monitor check Shaheen mutation, followup 12/22 stable HGB 9.5 today, slight elevated PLt comparing with yesterday, today it is 110. continue lab monitor 12/21 HGB is 9.0 after she had two unit of blood. hemolytic study is pending. pt's Plt is down to 102 from 201 continue lab monitor advise pt's guardian let pt followup hemotologist after d/c as out-pt 12/20 HGB is 6.2 today, blood transfusion two unit of blood Occult test is negative for GI bleed, order indirect Bili, LDH, and Haptoglobin to R/O hemolytic anemia. anemia study does not reveals iron deficiency, or B12 or folate deficiency anemia continue lab monitor pt's HGB is 8.4, hx of anemia, MCV is 97. pt has no GI bleed reported will do anemia study. lab monitor (9) dysphagia 12/23 pt can drink and enjoy drink Ensure without aspiration or cough, precaution of aspiration 12/[address] recommendation, dysphagia diet, nurse care. Precaution of aspiration pt report pt has difficult to swallow, it appear to be caused by her chronic me dical condition, developed delay consult with ST, will followup (10) pneumonia 12/23. pt was found to have pneumonia on yesterday, after treatment, pt's O2 sat increase to 95% on room air, WBC is normal it seem pt response to treatment, continue antibiotics, lab and vital monitor pt present respiratory distress with hypoxia. CXR reveals right low lobe pneumonia with small effusion add antibiotics azthyromycin plus Rocephin incentive Spirometer supplement of O2 as needed Qualifiers: Sepsis type: sepsis due to unspecified organism Qualified Code(s): A41.9 - Sepsis, unspecified organism Qualifiers: Sepsis type: sepsis due to unspecified organism Qualified Code(s): A41.9 - Sepsis, unspecified organism (3) Fall Qualifiers: Encounter type: initial encounter Qualified Code(s): W19.XXXA - Unspecified fall, initial encounter (4) Fracture dislocation of shoulder joint Qualifiers: Encounter type: initial encounter Fracture type: closed Laterality: left Qualified Code(s): S42.92XA - Fracture of left shoulder girdle, part unspecified, initial encounter for closed fracture
[2018-12-23] MEDS ORDERED: LORazepam 2 MG/ML VIAL IVP STA (19:44)
[2018-12-23] MEDS: QUEtiapine 25 MG TABLET PO SCH (22:47)
[2018-12-24] MEDS: SODIUM CHLORIDE FLUSH 0.9% 10 ML SYRINGE IVP SCH ×3 (02:25→17:06)
[2018-12-24] MEDS: MORPHINE 2 MG/ML CARPUJECT IVP PRN ×4 (04:14→17:37)
[2018-12-24 04:49] LABS: BASOPHILS % (AUTO) 0.4 %; EOSINOPHILS % (AUTO) 0.4 %; HGB - HEMOGLOBIN 10.3 g/dL (12.0-16.0); LYMPHOCYTES # (AUTO) 1.4 10^3/uL (1.5-3.5); LYMPHOCYTES % (AUTO) 17.4 %; MEAN CORPUSCULAR HEMOGLOBIN 31.2 pg (27.0-31.0); MEAN CORPUSCULAR HGB CONC 33.9 g/dL (32.0-36.0); MEAN CORPUSCULAR VOLUME 92.2 fL (81.0-99.0); MEAN PLATELET VOLUME 7.1 fL (7.9-10.8); MONOCYTES # (AUTO) 0.9 10^3/uL (0.0-1.0); MONOCYTES % (AUTO) 10.6 %; NEUTROPHILS # (AUTO) 5.9 10^3/uL (1.5-6.6); NEUTROPHILS % (AUTO) 71.2 %; PLT - PLATELET COUNT 128 10^3/uL (130-450); RED BLOOD COUNT 3.31 10^6/uL (4.20-5.40); RED CELL DISTRIBUTION WIDTH 15.6 % (12.0-15.0); WHITE BLOOD COUNT 8.2 x10^3/uL (4.8-10.8)
[2018-12-24 04:55] LABS: CALCIUM 8.2 mg/dL (8.5-10.3); CREATININE 0.7 mg/dL (0.4-1.0)
[2018-12-24] MEDS: LEVOTHYROXINE 25 MCG TABLET PO SCH (06:35)
[2018-12-24] MEDS ORDERED: IOVERSOL 320 100 ML VIAL IVP ONE (07:56)
[2018-12-24] MEDS ORDERED: SODIUM CHLORIDE 0.9% 500 ML IV PRN (08:00)
[2018-12-24] MEDS: AZITHROMYCIN INJ 500 MG in SODIUM CHLORIDE 0.9% 250 ML IV SCH (10:28)
[2018-12-24] MEDS: ASCORBIC ACID CHEW 500 MG TABLET PO SCH ×2 (10:29→22:02)
[2018-12-24] MEDS: hydrOXYzine PAMOATE 25 MG CAPSULE PO PRN (10:29)
[2018-12-24] MEDS: CALCIUM CITRATE 250 MG TABLET PO SCH (10:29)
[2018-12-24] MEDS: DIVALPROEX DR 250 MG TABLET PO SCH ×2 (10:29→22:03)
[2018-12-24] MEDS: FUROSEMIDE 20 MG TABLET PO SCH (10:29)
[2018-12-24] MEDS: SERTRALINE 50 MG TABLET PO SCH (10:29)
[2018-12-24] MEDS: CHOLECALCIFEROL 1,000 UNIT TABLET PO SCH (10:29)
[2018-12-24] MEDS: POLYETHYLENE GLYCOL 3350 17 GM PACKET PO SCH (10:29)
[2018-12-24] MEDS: ASPIRIN CHEW 81 MG TABLET PO SCH (10:30)
[2018-12-24] MEDS: FAMOTIDINE 20 MG TABLET PO SCH (10:30)
[2018-12-24] MEDS: FERROUS SULFATE 325 MG TABLET PO SCH (10:30)
[2018-12-24] MEDS: HEPARIN 5,000 UNIT/ML VIAL SUBQ SCH (10:49)
--- NOTE | 2018-12-24 12:24 | PROVIDER PROGRESS NOTE ---
Subjective - Subjective Pt reports feeling: Improved Subjective: pt is comfortable sleeping at the bed. It seems her agitation is better controlled. pt did not have oxygen at community home, now she has respiratory distress with hypoxia and need O2. Hope pt do need O2 with her because her roomm ate is a smoker. Also her community home can accept her until Tuesday tomorrow. Current Medications - Current Medications Current Medications: Active Medications Acetaminophen (Tylenol) 650 mg PO Q4HR PRN PRN Reason: Pain 1 to 4 Last Admin: 12/22/18 16:13 Dose: 650 mg Ascorbic Acid (Vitamin C) 500 mg PO BID [facility] Last Admin: 12/24/18 10:29 Dose: 500 mg Aspirin ([place] Aspirin) 81 mg PO DAILY [facility] Last Admin: 12/24/18 10:30 Dose: 81 mg Atorvastatin Calcium (Lipitor) 10 mg PO QPM [facility] Calcium Citrate () 250 mg PO DAILY [facility] Last Admin: 12/24/18 10:29 Dose: 250 mg Cholecalciferol (Vitamin D3) 1,000 unit PO DAILY [facility] Last Admin: 12/24/18 10:29 Dose: 1,000 unit Divalproex Sodium (Depakote Dr) 1,000 mg PO QPM [facility] Last Admin: 12/23/18 22:36 Dose: 1,000 mg Divalproex Sodium (Depakote Dr) 500 mg PO DAILY [facility] Last Admin: 12/24/18 10:29 Dose: 500 mg Famotidine (Pepcid) 20 mg PO DAILY [facility] Last Admin: 12/24/18 10:30 Dose: 20 mg Ferrous Sulfate (Feosol) 325 mg PO DAILYWM [facility] Last Admin: 12/24/18 10:30 Dose: 325 mg Furosemide (Lasix) 20 mg PO DAILY [facility] Last Admin: 12/24/18 10:29 Dose: 20 mg Heparin Sodium (Porcine) () 2,500 unit SUBQ BID [facility] Last Admin: 12/24/18 10:49 Dose: 2,500 unit Hydroxyzine Pamoate (Vistaril) 25 mg PO TID PRN PRN Reason: Agitation Last Admin: 12/24/18 10:29 Dose: 25 mg Ceftriaxone Sodium 1 gm/ (Sodium Chloride) 100 mls @ 200 mls/hr IV Q24H [facility] Last Infusion: 12/23/18 12:31 Dose: Infused Azithromycin 500 mg/ Sodium (Chloride) 250 mls @ 250 mls/hr IV DAILY [facility] Last Admin: 12/24/18 10:28 Dose: 250 mls/hr Sodium Chloride (Normal Saline 0.9%) 500 mls @ 0 mls/hr IV Q24H PRN PRN Reason: TKO RATE Ketorolac Tromethamine (Toradol Inj (15mg)) 15 mg IVP Q6HR PRN PRN Reason: PAIN Stop: 12/27/18 17:52 Last Admin: 12/23/18 16:53 Dose: 15 mg Levothyroxine Sodium (Synthroid) 50 mcg PO QDAC [facility] Last Admin: 12/24/18 06:35 Dose: 50 mcg Mineral Oil (Cavilon) 1 applic TOP PRN PRN PRN Reason: Skin Care Last Admin: 12/22/18 06:38 Dose: 1 applic Morphine Sulfate (Morphine (Carpuject)) 2 mg IVP Q2HR PRN PRN Reason: Pain 8 to 10 Last Admin: 12/24/18 10:30 Dose: 2 mg Ondansetron HCl (Zofran Inj) 4 mg IVP Q6HR PRN PRN Reason: Nausea / Vomiting Oxycodone HCl (Roxicodone) 5 mg PO Q4HR PRN PRN Reason: Pain 5 to 7 Last Admin: 12/23/18 10:18 Dose: 5 mg Polyethylene Glycol (Miralax) 17 gm PO DAILY [facility] Last Admin: 12/24/18 10:29 Dose: 17 gm Quetiapine Fumarate (Seroquel) 50 mg PO QPM [facility] Last Admin: 12/23/18 22:47 Dose: 50 mg Sertraline HCl (Zoloft) 200 mg PO DAILY [facility] Last Admin: 12/24/18 10:29 Dose: 200 mg Sodium Chloride (Normal Saline Flush 0.9%) 10 ml IVP PRN PRN PRN Reason: NEEDED PER PROVIDER ORDERS Last Admin: 12/23/18 05:33 Dose: 10 ml Sodium Chloride (Normal Saline Flush 0.9%) 10 ml IVP 0100,0900,1700 [facility] Last Admin: 12/24/18 10:29 Dose: 10 ml Cholecalciferol (Vitamin D3) [Vitamin D] 1,000 units PO DAILY 04/09/14 Lovastatin [Altoprev] 20 mg PO DAILY PM 04/09/14 Docusate Sodium 100 mg PO BID 10/06/17 Potassium Chloride [Micro-K] 10 meq PO DAILY 10/06/17 Ascorbic Acid [Vitamin C] 500 mg PO BID 12/19/18 Aspirin [Adult Low Dose Aspirin EC] 81 mg PO DAILY 12/19/[address] [Depakote Dr] 1,000 mg PO DAILY PM 12/19/[address] [Jvakote Dr] 500 mg PO DAILY 12/19/18 Levothyroxine [Synthroid] 50 mcg PO DAILY 12/19/18 QUEtiapine [SEROquel] 12.5 mg PO DAILY 12/19/18 QUEtiapine [SEROquel] 50 mg PO DAILY PM 12/19/18 Sertraline [Zoloft] 200 mg PO DAILY 12/19/18 hydrOXYzine HCl [Hydroxyzine HCl] 25 mg PO TID PRN 12/19/18 Objective - Vital Signs/Intake & Output Reviewed Vital Signs: Yes Vital Signs: Vital Signs x48h Temp Pulse Resp BP Pulse Ox 12/24/18 04:29 36.6 C 91 18 124/66 100 Intake & Output: Intake & Output 12/21/18 12/22/18 12/23/18 12/24/18 23:59 23:59 23:59 23:59 Intake Total 3486.667 1890 930 240 Balance 3486.667 1890 930 240 - Objective General Appearance: positive: No acute distress, Alert. negative: Lethargic Eyes Bilateral: positive: Normal inspection, PERRL, No lid inflammation, Conjunctivae nml ENT: positive: ENT inspection nml, Pharynx nml, No signs of dehydration. negative: Purulent nasal drainage, Pharyngeal erythema, Oral lesions Neck: positive: Thyroid nml, No JVD, Trachea midline. negative: Thyromegaly, Lymphadenopathy (R), Lymphadenopathy (L), Stiff neck, Swelling/bruising, Tracheal deviation Respiratory: positive: Chest non-tender, No respiratory distress. negative: Wheezes, Rales, Rhonchi Cardiovascular: positive: Regular rate & rhythm, No murmur, No gallop. negative: Irregularly irregular, Extrasystoles, Tachycardia, Bradycardia, JVD present, Systolic murmur, Diastolic murmur Peripheral Pulses: 2+ Radial (R), 2+ Radial (L), 2+ Dorsalis pedis (R), 2+ Dorsalis pedis (L) Abdomen: positive: Non-tender, No organomegaly, Nml bowel sounds, No distention. negative: Tenderness, Guarding, Rebound Back: positive: Nml inspection. negative: CVA tenderness (R), CVA tenderness (L) Skin: positive: Color nml, No rash, Warm, Dry. negative: Cyanosis, Diaphoresis, Pallor Extremities: positive: Non-tender. negative: Calf tenderness, Radha's sign/cords Neurologic/Psychiatric: negative: Facial droop - Lab Results Fish Bones: 12/24/18 04:20 12/24/18 04:20 Other Labs: Lab Results x24hrs 12/24/18 12/24/18 Range/Units 04:20 04:20 WBC 8.2 (4.8-10.8) x10^3/uL RBC 3.31 L (4.20-5.40) 10^6/uL Hgb 10.3 L (12.0-16.0) g/dL Hct 30.5 L (37.0-47.0) % MCV 92.2 (81.0-99.0) fL MCH 31.2 H (27.0-31.0) pg MCHC 33.9 (32.0-36.0) g/dL RDW 15.6 H (12.0-15.0) % Plt Count 128 L (130-450) 10^3/uL MPV 7.1 L (7.9-10.8) fL Neut # (Auto) 5.9 (1.5-6.6) 10^3/uL Lymph # (Auto) 1.4 L (1.5-3.5) 10^3/uL [place] # (Auto) 0.9 (0.0-1.0) 10^3/uL Eos # (Auto) 0.0 (0.0-0.7) 10^3/uL Baso # (Auto) 0.0 (0.0-0.1) 10^3/uL Absolute Nucleated RBC 0.01 x10^3/uL Nucleated RBC % 0.1 /100WBC Sodium 138 (135-145) mmol/L Potassium 4.1 (3.5-5.0) mmol/L Chloride 98 L (101-111) mmol/L Carbon Dioxide 31 (21-32) mmol/L Anion Gap 9.0 (6-13) BUN 21 H (6-20) mg/dL Creatinine 0.7 (0.4-1.0) mg/dL Estimated GFR (MDRD) 83 L (>89) Glucose 88 (70-100) mg/dL Calcium 8.2 L (8.5-10.3) mg/dL ABX Reporting Has patient been on IV antibiotics over the past 48 hours?: Yes Sepsis Event Note (H) - Evaluation Current Stage of Sepsis: Sepsis Possible source of Sepsis: positive: Genitourinary - Sepsis Criteria Sepsis Criteria: Recorded Heart Rate greater than 90 bpm, WBC count greater than 12,000 or less than 4000, SBP less than 90 mmHg Assessment/Plan - Problem List (1) Sepsis Impression: 12/24 stable/resolved. pt has WBC is WNL, no fever, chill, BP is stable. 12/23 blood culture is negative, no fever/chill, and WBC is normal now. continue to use antibiotics to treat pneumonia vital monitor 12/22 pt's BP is at WNL, WBC is 9.7, no fever was reported. continue antibiotics continue lab and vital monitor 12/21 improved. WBC is 9.3 now. pt is more alert and active. BP is stable continue Rocephin, slight IVF of NS continue lab and vital monitor 12/20 pt's lactic acid is down to 1.9, SBP is around 97, it is better. continue treat with antibiotics continue IVF of NS tele and vital monitor pt present hypotension at admission, lactic acid to 5.7, tachycardia at admission, UA reveals UTI, WBC was 17. treat with antibiotics Rocephin IVF of NS tele and vital monitor recheck Lactic acid (2) UTI (urinary tract infection) Conclusion/Plan: continue treat with antibiotics UA analysis reveals positive UTI, WBC is 17 followup UA culture and sensitive study start with Rocephin, according to her hx of UTI and sensitivity study (3) Acute kidney injury Conclusion/Plan: 12/22 resolved 12/21 great improved. Today Creatinine is 0.8, as pt's baseline continue slight hydration, and lab monitor 12/20 creatinine is 1.3 now, it is improved continue IVF of NS continue lab monitor creatinine is 1.5 from her baseline 0.7, acute kidney injury, it seems form her severe dehydration IVF of NS lab monitor hold nephro-toxical agent (4) Fracture dislocation of shoulder joint Conclusion/Plan: 12/24, continue pain control, and continue use sling 12/23 continue Sling on pt's left hand and shoulder, followup orthopedics surgeon continue pain management 12/22 orthopedics was consulted, and pt had sling now, will followup orthopedics incentive Spirometer 12/21 followup orthopedics consult, pain control 12/20 consult with orthopedics and followup left humeral head fracture, consult with orthopedics surgeon and followup Pain control, will add Splint per surgeon (5) Fall Conclusion/Plan: pt is living at [facility]. I discussed with pt's caregiver how to prevent fall to pt. will continue support (6) Hypothyroidism Conclusion/Plan: normal TSH, continue home meds will check TSH and reconcile pt's home meds (7) History of developmental delay Conclusion/Plan: pt is aphasia, will continue support pt and nurse care to pt (8) Hx of macrocytic anemia and pancytopenia Conclusion/Plan: 12/24 HGB continue stable, no more metamyelocytes or myelocytes 12/23 pt's HGB increase to 10.4 from 9.5 on yesterday, but plt decrease to 86 from 110, and in CBC it reveals metamyelocytes and myelocytes cells will continue lab monitor check Shaheen mutation, followup 12/22 stable HGB 9.5 today, slight elevated PLt comparing with yesterday, today it is 110. continue lab monitor 12/21 HGB is 9.0 after she had two unit of blood. hemolytic study is pending. pt's Plt is down to 102 from 201 continue lab monitor advise pt's guardian let pt followup hemotologist after d/c as out-pt 12/20 HGB is 6.2 today, blood transfusion two unit of blood Occult test is negative for GI bleed, order indirect Bili, LDH, and Haptoglobin to R/O hemolytic anemia. anemia study does not reveals iron deficiency, or B12 or folate deficiency anemia continue lab monitor pt's HGB is 8.4, hx of anemia, MCV is 97. pt has no GI bleed reported will do anemia study. lab monitor (9) dysphagia 12/24, nurse report has no problem to swallow medications 12/23 pt can drink and enjoy drink Ensure without aspiration or cough, precaution of aspiration 12/[address], dysphagia diet, nurse care. Precaution of aspiration pt report pt has difficult to swallow, it appear to be caused by her chronic medical condition, developed delay consult with ST, will followup (10) pneumonia with respiratory distress and hypoxia 12/24 pt has 100% sat on 3 liter of O2, will wane off O2 to assess pt continue antibiotics to treat pneumonia 12/23. pt was found to have pneumonia on yesterday, after treatment, pt's O2 sat increase to 95% on room air, WBC is normal it seem pt response to treatment, continue antibiotics, lab and vital monitor pt present respiratory distress with hypoxia. CXR reveals right low lobe pneumonia with small effusion add antibiotics azthyromycin plus Rocephin incentive Spirometer supplement of O2 as needed Qualifiers: Sepsis type: sepsis due to unspecified organism Qualified Code(s): A41.9 - Sepsis, unspecified organism (3) Fall Qualifiers: Encounter type: initial encounter Qualified Code(s): W19.XXXA - Unspecified fall, initial encounter (4) Fracture dislocation of shoulder joint Qualifiers: Encounter type: initial encounter Fracture type: closed Laterality: left Qualified Code(s): S42.92XA - Fracture of left shoulder girdle, part unspecified, initial encounter for closed fracture
[2018-12-24] MEDS: cefTRIAXone 1 GM in SODIUM CHLORIDE 0.9% MINIBAG 100 ML IV SCH (13:41)
[2018-12-24] MEDS: ZINC OXIDE 20% OINT 28.35 GM TUBE TOP PRN (14:21)
[2018-12-24] MEDS: KETOROLAC 15 MG/ML VIAL IVP PRN ×2 (14:53→22:28)
[2018-12-24] MEDS: SODIUM CHLORIDE FLUSH 0.9% 10 ML SYRINGE IVP PRN (14:53)
--- NOTE | 2018-12-24 15:19 | XRAY Report ---
Reason: SOB/hypoxia Procedure Date: 12/24/2018 Accession Number: [id number] / [id number] Procedure: XR - Chest 1 View X-Ray CPT Code: 52438 FULL RESULT: EXAM: CHEST RADIOGRAPHY EXAM DATE: 12/24/2018 03:08 PM. CLINICAL HISTORY: SOB/hypoxia. COMPARISON: CHEST 1 VIEW 12/22/2018 8:01 AM CHEST 1 VIEW 12/20/2018 8:41 AM. TECHNIQUE: 1 view. FINDINGS: Lungs/Pleura: Compared to the prior exam, interstitial lung markings appear increased. Opacity in the left lung base appears improved. Opacity in the right lung base appears worsened. The right costophrenic angle is blunted. No pneumothorax is appreciated. Mediastinum: The patient is rotated rightward. Cardiac and mediastinal silhouettes appear grossly stable. Other: There is a fracture of the proximal left humerus. IMPRESSION: 1. Increased interstitial markings compared to prior, question developing interstitial edema. 2. Improved opacities in the left lower lung, worsened opacities in the right lower lung. A right pleural effusion is suspected, probably similar to prior. RADIA
[2018-12-24] MEDS ORDERED: LORazepam 2 MG/ML VIAL IVP STA ×2 (15:34→18:46)
[2018-12-24] MEDS ORDERED: predniSONE 20 MG TABLET PO SCH (16:00)
[2018-12-24] MEDS ORDERED: FUROSEMIDE 20 MG TABLET PO SCH (16:00)
[2018-12-24] MEDS: LORazepam 2 MG/ML VIAL IVP PRN ×2 (16:13→22:58)
[2018-12-24] MEDS ORDERED: PIPERACILLIN/TAZOBACTAM 3.375 GM in SODIUM CHLORIDE 0.9% MINIBAG 100 ML IV SCH (17:00)
[2018-12-24] MEDS ORDERED: DEXTROSE 5%-0.9% NACL 1,000 ML IV SCH (17:00)
[2018-12-24] MEDS: FUROSEMIDE 20 MG/2 ML VIAL IVP SCH (17:04)
[2018-12-24] MEDS: methylPREDNISolone SUCCINATE 40 MG/ML VIAL IVP SCH ×2 (17:04→22:03)
[2018-12-24] MEDS: PIPERACILLIN/TAZOBACTAM 4.5 GM in SODIUM CHLORIDE 0.9% MINIBAG 100 ML IV SCH (17:16)
[2018-12-24] MEDS ORDERED: HEPARIN 5,000 UNIT/ML VIAL SUBQ ONE (21:00)
[2018-12-24] MEDS: ATORVASTATIN 10 MG TABLET PO SCH (22:03)
[2018-12-24] MEDS: QUEtiapine 25 MG TABLET PO SCH (22:03)
[2018-12-25] MEDS: PIPERACILLIN/TAZOBACTAM 4.5 GM in SODIUM CHLORIDE 0.9% MINIBAG 100 ML IV SCH ×4 (00:17→18:20)
[2018-12-25] MEDS: SODIUM CHLORIDE FLUSH 0.9% 10 ML SYRINGE IVP SCH ×4 (01:00→23:34)
[2018-12-25 05:21] LABS: BASOPHILS % (AUTO) 0.1 %; HGB - HEMOGLOBIN 10.4 g/dL (12.0-16.0); LYMPHOCYTES # (AUTO) 0.8 10^3/uL (1.5-3.5); LYMPHOCYTES % (AUTO) 11.4 %; MEAN CORPUSCULAR HEMOGLOBIN 31.3 pg (27.0-31.0); MEAN CORPUSCULAR VOLUME 91.9 fL (81.0-99.0); MEAN PLATELET VOLUME 7.1 fL (7.9-10.8); MONOCYTES # (AUTO) 0.3 10^3/uL (0.0-1.0); MONOCYTES % (AUTO) 5.3 %; NEUTROPHILS # (AUTO) 5.5 10^3/uL (1.5-6.6); NEUTROPHILS % (AUTO) 83.2 %; PLT - PLATELET COUNT 135 10^3/uL (130-450); RED BLOOD COUNT 3.32 10^6/uL (4.20-5.40); RED CELL DISTRIBUTION WIDTH 15.4 % (12.0-15.0); WHITE BLOOD COUNT 6.6 x10^3/uL (4.8-10.8)
[2018-12-25 05:26] LABS: CALCIUM 7.9 mg/dL (8.5-10.3); CREATININE 0.6 mg/dL (0.4-1.0)
[2018-12-25] MEDS: LORazepam 2 MG/ML VIAL IVP PRN (05:38)
[2018-12-25] MEDS: methylPREDNISolone SUCCINATE 40 MG/ML VIAL IVP SCH ×3 (06:09→22:22)
[2018-12-25] MEDS: FUROSEMIDE 20 MG/2 ML VIAL IVP SCH (06:10)
[2018-12-25] MEDS: MORPHINE 2 MG/ML CARPUJECT IVP PRN (06:13)
[2018-12-25] MEDS ORDERED: DEXTROSE 5%-0.9% NACL 1,000 ML IV SCH (07:27)
[2018-12-25] MEDS ORDERED: AZITHROMYCIN 250 MG TABLET PO SCH (09:00)
[2018-12-25] MEDS ORDERED: BISACODYL 10 MG SUPP PR ONE (09:00)
[2018-12-25] MEDS: ENOXAPARIN 40 MG/0.4 ML SYRINGE SUBQ SCH (09:01)
[2018-12-25] MEDS: POLYETHYLENE GLYCOL 3350 17 GM PACKET PO SCH (09:02)
[2018-12-25] MEDS: CALCIUM CITRATE 250 MG TABLET PO SCH (09:03)
[2018-12-25] MEDS: ASCORBIC ACID CHEW 500 MG TABLET PO SCH ×2 (09:03→20:33)
[2018-12-25] MEDS: FAMOTIDINE 20 MG TABLET PO SCH (09:03)
[2018-12-25] MEDS: ASPIRIN CHEW 81 MG TABLET PO SCH (09:03)
[2018-12-25] MEDS: FERROUS SULFATE 325 MG TABLET PO SCH (09:03)
[2018-12-25] MEDS: LEVOTHYROXINE 25 MCG TABLET PO SCH (09:04)
[2018-12-25] MEDS: CHOLECALCIFEROL 1,000 UNIT TABLET PO SCH (09:04)
[2018-12-25] MEDS: DIVALPROEX DR 250 MG TABLET PO SCH ×2 (09:04→20:38)
[2018-12-25] MEDS: SERTRALINE 50 MG TABLET PO SCH (09:06)
--- NOTE | 2018-12-25 11:33 | PROVIDER PROGRESS NOTE ---
Subjective - Prog Note Date Prog Note Date: 12/25/18 - Subjective Subjective: pt's sat is 90% now on room air. pt appear without respiratory distress now. pt was found to have aspiration pneumonia. pt need strict aspiration precaution. ST re-evaluation is pending. Current Medications - Current Medications Current Medications: Active Medications Acetaminophen (Tylenol) 650 mg PO Q4HR PRN PRN Reason: Pain 1 to 4 Last Admin: 12/22/18 16:13 Dose: 650 mg Ascorbic Acid (Vitamin C) 500 mg PO BID [facility] Last Admin: 12/25/18 09:03 Dose: 500 mg Aspirin ([place] Aspirin) 81 mg PO DAILY [facility] Last Admin: 12/25/18 09:03 Dose: 81 mg Atorvastatin Calcium (Lipitor) 10 mg PO QPM [facility] Last Admin: 12/24/18 22:03 Dose: Not Given Calcium Citrate () 250 mg PO DAILY [facility] Last Admin: 12/25/18 09:03 Dose: 250 mg Cholecalciferol (Vitamin D3) 1,000 unit PO DAILY [facility] Last Admin: 12/25/18 09:04 Dose: 1,000 unit Divalproex Sodium (Depakote Dr) 1,000 mg PO QPM [facility] Last Admin: 12/24/18 22:03 Dose: 1,000 mg Divalproex Sodium (Depakote Dr) 500 mg PO DAILY [facility] Last Admin: 12/25/18 09:04 Dose: 500 mg Enoxaparin Sodium (Lovenox) 40 mg SUBQ DAILY [facility] Last Admin: 12/25/18 09:01 Dose: 40 mg Famotidine (Pepcid) 20 mg PO DAILY [facility] Last Admin: 12/25/18 09:03 Dose: 20 mg Ferrous Sulfate (Feosol) 325 mg PO DAILYWM [facility] Last Admin: 12/25/18 09:03 Dose: 325 mg Furosemide (Lasix Inj 20mg Vial) 20 mg IVP DAILY [facility] Hydroxyzine Pamoate (Vistaril) 25 mg PO TID PRN PRN Reason: Agitation Last Admin: 12/24/18 10:29 Dose: 25 mg Sodium Chloride (Normal Saline 0.9%) 500 mls @ 0 mls/hr IV Q24H PRN PRN Reason: TKO RATE Piperacillin Sod/Tazobactam (Sod 4.5 gm/ Sodium Chloride) 100 mls @ 200 mls/hr IV Q6HR [facility] Last Infusion: 12/25/18 06:17 Dose: Infused Dextrose/Sodium Chloride (D5ns) 1,000 mls @ 75 mls/hr IV .[id number] [facility] Stop: 12/26/18 13:01 Ketorolac Tromethamine (Toradol Inj (15mg)) 15 mg IVP Q6HR PRN PRN Reason: PAIN Stop: 12/27/18 17:52 Last Admin: 12/24/18 22:28 Dose: 15 mg Levothyroxine Sodium (Synthroid) 50 mcg PO QDAC [facility] Last Admin: 12/25/18 09:04 Dose: 50 mcg Methylprednisolone (Solu-Medrol (40mg Vial)) 20 mg IVP TID [facility] Last Admin: 12/25/18 06:09 Dose: 20 mg Mineral Oil (Cavilon) 1 applic TOP PRN PRN PRN Reason: Skin Care Last Admin: 12/22/18 06:38 Dose: 1 applic Morphine Sulfate (Morphine (Carpuject)) 2 mg IVP Q2HR PRN PRN Reason: Pain 8 to 10 Last Admin: 12/25/18 06:13 Dose: 2 mg Multi-Ingredient Ointment (Zinc Oxide) 1 applic TOP PRN PRN PRN Reason: Skin Care Last Admin: 12/24/18 14:21 Dose: 1 applic Ondansetron HCl (Zofran Inj) 4 mg IVP Q6HR PRN PRN Reason: Nausea / Vomiting Oxycodone HCl (Roxicodone) 5 mg PO Q4HR PRN PRN Reason: Pain 5 to 7 Last Admin: 12/23/18 10:18 Dose: 5 mg Polyethylene Glycol (Miralax) 17 gm PO DAILY [facility] Last Admin: 12/25/18 09:02 Dose: 17 gm Quetiapine Fumarate (Seroquel) 50 mg PO QPM [facility] Last Admin: 12/24/18 22:03 Dose: 50 mg Sertraline HCl (Zoloft) 200 mg PO DAILY [facility] Last Admin: 12/25/18 09:06 Dose: 200 mg Sodium Chloride (Normal Saline Flush 0.9%) 10 ml IVP PRN PRN PRN Reason: NEEDED PER PROVIDER ORDERS Last Admin: 12/24/18 14:53 Dose: 10 ml Sodium Chloride (Normal Saline Flush 0.9%) 10 ml IVP 0100,0900,1700 [facility] Last Admin: 12/25/18 09:06 Dose: Not Given Cholecalciferol (Vitamin D3) [Vitamin D] 1,000 units PO DAILY 04/09/14 Lovastatin [Altoprev] 20 mg PO DAILY PM 04/09/14 Docusate Sodium 100 mg PO BID 10/06/17 Potassium Chloride [Micro-K] 10 meq PO DAILY 10/06/17 Ascorbic Acid [Vitamin C] 500 mg PO BID 12/19/18 Aspirin [Adult Low Dose Aspirin EC] 81 mg PO DAILY 12/19/18 Divalproex [Karin Samuel] 1,000 mg PO DAILY PM 12/19/18 Divalproex [Karin Samuel] 500 mg PO DAILY 12/19/18 Levothyroxine [Synthroid] 50 mcg PO DAILY 12/19/18 QUEtiapine [SEROquel] 12.5 mg PO DAILY 12/19/18 QUEtiapine [SEROquel] 50 mg PO DAILY PM 12/19/18 Sertraline [Zoloft] 200 mg PO DAILY 12/19/18 hydrOXYzine HCl [Hydroxyzine HCl] 25 mg PO TID PRN 12/19/18 Objective - Vital Signs/Intake & Output Reviewed Vital Signs: Yes Vital Signs: Vital Signs x48h Temp Pulse Resp BP Pulse Ox 12/25/18 08:46 36.2 C L 78 14 113/64 90 L Intake & Output: Intake & Output 12/22/18 12/23/18 12/24/18 12/25/18 23:59 23:59 23:59 23:59 Intake Total 1890 930 777.5 1112.50 Balance 1890 930 777.5 1112.50 - Objective General Appearance: positive: Alert, Mild distress. negative: Lethargic Eyes Bilateral: positive: Normal inspection, PERRL, No lid inflammation, Conjunctivae nml ENT: positive: ENT inspection nml, Pharynx nml, No signs of dehydration. negative: Purulent nasal drainage, Pharyngeal erythema, Oral lesions Neck: positive: Nml inspection, Thyroid nml, No JVD, Trachea midline. negative: Thyromegaly, Lymphadenopathy (R), Stiff neck, Swelling/bruising, Tracheal deviation Respiratory: positive: Chest non-tender, No respiratory distress, Rhonchi. negative: Wheezes, Rales Cardiovascular: positive: Regular rate & rhythm, No murmur, No gallop. ne gative: Irregularly irregular, Extrasystoles, Tachycardia, Bradycardia, JVD present, Systolic murmur, Diastolic murmur Peripheral Pulses: 2+ Radial (R), 2+ Radial (L), 2+ Dorsalis pedis (R), 2+ Dorsalis pedis (L) Abdomen: positive: Non-tender, No organomegaly, Nml bowel sounds, No distention. negative: Tenderness, Guarding, Rebound Back: positive: Nml inspection. negative: CVA tenderness (R), CVA tenderness (L) Skin: positive: Color nml, No rash, Warm, Dry. negative: Cyanosis, Diaphoresis, Pallor Extremities: positive: Non-tender. negative: Calf tenderness, Radha's sign/cords Neurologic/Psychiatric: negative: Sensory loss, Facial droop - Lab Results Fish Bones: 12/25/18 05:03 12/25/18 05:03 Other Labs: Lab Results x24hrs 12/25/18 12/25/18 12/24/18 Range/Units 05:03 05:03 16:05 WBC 6.6 (4.8-10.8) x10^3/uL RBC 3.32 L (4.20-5.40) 10^6/uL Hgb 10.4 L (12.0-16.0) g/dL Hct 30.5 L (37.0-47.0) % MCV 91.9 (81.0-99.0) fL MCH 31.3 H (27.0-31.0) pg MCHC 34.0 (32.0-36.0) g/dL RDW 15.4 H (12.0-15.0) % Plt Count 135 (130-450) 10^3/uL MPV 7.1 L (7.9-10.8) fL Neut # (Auto) 5.5 (1.5-6.6) 10^3/uL Lymph # (Auto) 0.8 L (1.5-3.5) 10^3/uL Pender # (Auto) 0.3 (0.0-1.0) 10^3/uL Eos # (Auto) 0.0 (0.0-0.7) 10^3/uL Baso # (Auto) 0.0 (0.0-0.1) 10^3/uL Absolute Nucleated RBC 0.00 x10^3/uL Nucleated RBC % 0.0 /100WBC Sodium 141 (135-145) mmol/L Potassium 3.7 (3.5-5.0) mmol/L Chloride 100 L (101-111) mmol/L Carbon Dioxide 29 (21-32) mmol/L Anion Gap 12.0 (6-13) BUN 22 H (6-20) mg/dL Creatinine 0.6 (0.4-1.0) mg/dL Estimated GFR (MDRD) 100 (>89) Glucose 132 H (70-100) mg/dL Calcium 7.9 L (8.5-10.3) mg/dL Troponin I (<0.49) ng/mL B-Natriuretic Peptide 348 H (5-100) pg/mL 12/24/18 Range/Units 15:00 WBC (4.8-10.8) x10^3/uL RBC (4.20-5.40) 10^6/uL Hgb (12.0-16.0) g/dL Hct (37.0-47.0) % MCV (81.0-99.0) fL MCH (27.0-31.0) pg MCHC (32.0-36.0) g/dL RDW (12.0-15.0) % Plt Count (130-450) 10^3/uL MPV (7.9-10.8) fL Neut # (Auto) (1.5-6.6) 10^3/uL Lymph # (Auto) (1.5-3.5) 10^3/uL Pender # (Auto) (0.0-1.0) 10^3/uL Eos # (Auto) (0.0-0.7) 10^3/uL Baso # (Auto) (0.0-0.1) 10^3/uL Absolute Nucleated RBC x10^3/uL Nucleated RBC % /100WBC Sodium (135-145) mmol/L Potassium (3.5-5.0) mmol/L Chloride (101-111) mmol/L Carbon Dioxide (21-32) mmol/L Anion Gap (6-13) BUN (6-20) mg/dL Creatinine (0.4-1.0) mg/dL Estimated GFR (MDRD) (>89) Glucose (70-100) mg/dL Calcium (8.5-10.3) mg/dL Troponin I < 0.04 (<0.49) ng/mL B-Natriuretic Peptide (5-100) pg/mL ABX Reporting Has patient been on IV antibiotics over the past 48 hours?: Yes Sepsis Event Note (H) - Evaluation Current Stage of Sepsis: Sepsis Possible source of Sepsis: positive: Genitourinary - Sepsis Criteria Sepsis Criteria: Recorded Heart Rate greater than 90 bpm, WBC count greater than 12,000 or less than 4000, SBP less than 90 mmHg Assessment/Plan - Problem List (1) Sepsis Impression: 12/25 pt has no fever, WBC is normal, BP is stable now, blood culture is negative. it appears pt is stable, no sepsis now. 12/24 stable/resolved. pt has WBC is WNL, no fever, chill, BP is stable. 12/23 blood culture is negative, no fever/chill, and WBC is normal now. continue to use antibiotics to treat pneumonia vital monitor 12/22 pt's BP is at WNL, WBC is 9.7, no fever was reported. continue antibiotics continue lab and vital monitor 12/21 improved. WBC is 9.3 now. pt is more alert and active. BP is stable continue Rocephin, slight IVF of NS continue lab and vital monitor 12/20 pt's lactic acid is down to 1.9, SBP is around 97, it is better. continue treat with antibiotics continue IVF of NS tele and vital monitor pt present hypotension at admission, lactic acid to 5.7, tachycardia at adm ission, UA reveals UTI, WBC was 17. treat with antibiotics Rocephin IVF of NS tele and vital monitor recheck Lactic acid (2) UTI (urinary tract infection) Conclusion/Plan: continue treat with antibiotics UA analysis reveals positive UTI, WBC is 17 followup UA culture and sensitive study start with Rocephin, according to her hx of UTI and sensitivity study (3) Acute kidney injury Conclusion/Plan: 12/22 resolved 12/21 great improved. Today Creatinine is 0.8, as pt's baseline continue slight hydration, and lab monitor 12/20 creatinine is 1.3 now, it is improved continue IVF of NS continue lab monitor creatinine is 1.5 from her baseline 0.7, acute kidney injury, it seems form her severe dehydration IVF of NS lab monitor hold nephro-toxical agent (4) Fracture dislocation of shoulder joint Conclusion/Plan: 12/24, continue pain control, and continue use sling 12/23 continue Sling on pt's left hand and shoulder, followup orthopedics surgeon continue pain management 12/22 orthopedics was consulted, and pt had sling now, will followup orthopedics incentive Spirometer 12/21 followup orthopedics consult, pain control 12/20 consult with orthopedics and followup left humeral head fracture, consult with orthopedics surgeon and followup Pain control, will add Splint per surgeon (5) Fall Conclusion/Plan: [facility] I discussed with pt's caregiver how to prevent fall to pt. will continue support (6) Hypothyroidism Conclusion/Plan: normal TSH, continue home meds will check TSH and reconcile pt's home meds (7) History of developmental delay Conclusion/Plan: pt is aphasia, will continue support pt and nurse care to pt (8) Hx of macrocytic anemia and pancytopenia Conclusion/Plan: 12/24 HGB continue stable, no more metamyelocytes or myelocytes 12/23 pt's HGB increase to 10.4 from 9.5 on yesterday, but plt decrease to 86 from 110, and in CBC it reveals metamyelocytes and myelocytes cells will continue lab monitor check Shaheen mutation, followup 12/22 stable HGB 9.5 today, slight elevated PLt comparing with yesterday, today it is 110. continue lab monitor 12/21 HGB is 9.0 after she had two unit of blood. hemolytic study is pending. pt's Plt is down to 102 from 201 continue lab monitor advise pt's guardian let pt followup hemotologist after d/c as out-pt 12/20 HGB is 6.2 today, blood transfusion two unit of blood Occult test is negative for GI bleed, order indirect Bili, LDH, and Haptoglobin to R/O hemolytic anemia. anemia study does not reveals iron deficiency, or B12 or folate deficiency anemia continue lab monitor pt's HGB is 8.4, hx of anemia, MCV is 97. pt has no GI bleed reported will do anemia study. lab monitor (9) dysphagia 12/25 pt continue to have this issue. must follow the order for strict aspiration precaution, DO NOT let pt drink by herself with sippy cup order for re-evaluation with ST, is pending NPO except meds with IVF now 12/24, nurse report has no problem to swallow medications 12/23 pt can drink and enjoy drink Ensure without aspiration or cough, precaution of aspiration 12/[address] recommendation, dysphagia diet, nurse care. Precaution of aspiration pt report pt has difficult to swallow, it appear to be caused by her chronic medical condition, developed delay consult with ST, will followup (10) aspiration pneumonia with respiratory distress and hypoxia 12/25 CXR image reviewed, it appear pt had aspiration pneumonia, special on her right lung. strict aspiration precaution start on low dosage of steroid for pneumonitis switch to Zosyn order for re-evaluation with ST, is pending NPO except meds with IVF now discussed with pt's Guaidian for pt's care plan, and answer her questions and concerns. lasix for lung edema effusion order ECHO to r/o cardiac etiology to cause pulmonary edema 12/24 pt has 100% sat on 3 liter of O2, will wane off O2 to assess pt continue antibiotics to treat pneumonia 12/23. pt was found to have pneumonia on yesterday, after treatment, pt's O2 sat increase to 95% on room air, WBC is normal it seem pt response to treatment, continue antibiotics, lab and vital monitor pt present respiratory distress with hypoxia. CXR reveals right low lobe pneumonia with small effusion add antibiotics azthyromycin plus Rocephin incentive Spirometer supplement of O2 as needed Qualifiers: Sepsis type: sepsis due to unspecified organism Qualified Code(s): A41.9 - Sepsis, unspecified organism (3) Fall Qualifiers: Encounter type: initial encounter Qualified Code(s): W19.XXXA - Unspecified fall, initial encounter (4) Fracture dislocation of shoulder joint Qualifiers: Encounter type: initial encounter Fracture type: closed Laterality: left Qualified Code(s): S42.92XA - Fracture of left shoulder girdle, part unspecified, initial encounter for closed fracture
[2018-12-25] MEDS: DEXTROSE 5%-0.9% NACL 1,000 ML IV SCH ×2 (12:46→20:31)
[2018-12-25] MEDS: KETOROLAC 15 MG/ML VIAL IVP PRN (19:33)
[2018-12-25] MEDS: ATORVASTATIN 10 MG TABLET PO SCH (20:34)
[2018-12-25] MEDS: QUEtiapine 25 MG TABLET PO SCH (20:40)
[2018-12-25] MEDS: oxyCODONE 5 MG TABLET PO PRN (20:41)
[2018-12-26] MEDS: PIPERACILLIN/TAZOBACTAM 4.5 GM in SODIUM CHLORIDE 0.9% MINIBAG 100 ML IV SCH ×3 (00:15→13:05)
[2018-12-26] MEDS: oxyCODONE 5 MG TABLET PO PRN ×3 (02:29→11:53)
[2018-12-26] MEDS: ZINC OXIDE 20% OINT 28.35 GM TUBE TOP PRN (04:30)
[2018-12-26 05:59] LABS: BASOPHILS % (AUTO) 0.1 %; HGB - HEMOGLOBIN 9.4 g/dL (12.0-16.0); LYMPHOCYTES % (AUTO) 14.8 %; MEAN CORPUSCULAR HEMOGLOBIN 31.7 pg (27.0-31.0); MEAN CORPUSCULAR HGB CONC 34.1 g/dL (32.0-36.0); MEAN PLATELET VOLUME 6.9 fL (7.9-10.8); MONOCYTES % (AUTO) 14.7 %; NEUTROPHILS # (AUTO) 4.8 10^3/uL (1.5-6.6); NEUTROPHILS % (AUTO) 70.4 %; PLT - PLATELET COUNT 152 10^3/uL (130-450); RED BLOOD COUNT 2.96 10^6/uL (4.20-5.40); WHITE BLOOD COUNT 6.8 x10^3/uL (4.8-10.8)
[2018-12-26 06:09] LABS: CALCIUM 7.7 mg/dL (8.5-10.3); CREATININE 0.7 mg/dL (0.4-1.0)
[2018-12-26] MEDS: methylPREDNISolone SUCCINATE 40 MG/ML VIAL IVP SCH ×2 (06:19→13:05)
[2018-12-26] MEDS: LEVOTHYROXINE 25 MCG TABLET PO SCH (06:19)
[2018-12-26] MEDS: SODIUM CHLORIDE FLUSH 0.9% 10 ML SYRINGE IVP PRN ×2 (06:19→08:05)
[2018-12-26] MEDS: hydrOXYzine PAMOATE 25 MG CAPSULE PO PRN (06:20)
[2018-12-26] MEDS: SERTRALINE 50 MG TABLET PO SCH (07:56)
[2018-12-26] MEDS: CALCIUM CITRATE 250 MG TABLET PO SCH (07:56)
[2018-12-26] MEDS: CHOLECALCIFEROL 1,000 UNIT TABLET PO SCH (07:56)
[2018-12-26] MEDS: ASPIRIN CHEW 81 MG TABLET PO SCH (07:56)
[2018-12-26] MEDS: FAMOTIDINE 20 MG TABLET PO SCH (07:56)
[2018-12-26] MEDS: FERROUS SULFATE 325 MG TABLET PO SCH (07:56)
[2018-12-26] MEDS: ASCORBIC ACID CHEW 500 MG TABLET PO SCH (07:56)
[2018-12-26] MEDS: POLYETHYLENE GLYCOL 3350 17 GM PACKET PO SCH (07:57)
[2018-12-26] MEDS: ENOXAPARIN 40 MG/0.4 ML SYRINGE SUBQ SCH (07:57)
[2018-12-26] MEDS ORDERED: BISACODYL 10 MG SUPP PR ONE (08:00)
[2018-12-26] MEDS: SODIUM CHLORIDE FLUSH 0.9% 10 ML SYRINGE IVP SCH (08:05)
[2018-12-26] MEDS: DIVALPROEX DR 250 MG TABLET PO SCH (08:05)
[2018-12-26] MEDS ORDERED: FUROSEMIDE 20 MG/2 ML VIAL IVP SCH (09:00)
--- NOTE | 2018-12-26 10:09 | Discharge Plan ---
Discharge Plan Disposition: 01 Home, Self Care Condition: Stable Prescriptions: Amox/Clav 875/125 [Augmentin] 1 each PO Q12H #6 tablet Activity Restrictions: No Restrictions Instruction Topics: Pneumonia Tx, Aspiration Dysphagia, Dysphagia Diet Pureed, ED Sling Additional Instructions or Follow Up instructions: You were admitted after falling and injuring your left arm. You were also found to have a type of pneumonia called aspiration. Please continue an antibiotic for the next 3 days for this condition. You underwent a speech swallow study and the following recommendations have been given today: 1. 1:1 supervision for meals' 2. diet texture is moist purees and nectar thick liquids 3. sitting bolt upright for all intake 4. do not leave unattended with sippy cup 5. meds crushed in applesauce 6. keep sitting up for 30 minutes after the meal A urine test showed that this sample was colonized, meaning, these bacteria are normally found in your urine. You may be able to lessen the chances of this type of pneumonia in the future with a feeding tube called a PEG, which bypasses your swallowing to get nutrition. Follow up with orthopedics outpatient in the next 1-2 weeks for follow up x- rays, wear the sling as needed for comfort. Physical therapy recommends; Physical Therapy for assessment of patient's ability as compared to her expected baseline. Recommend home with higher level of care or skilled long-term placement at a assisted living facility. Please follow up with your PCP in the next week for this referral. No Smoking: If you smoke, Please STOP! Call for help. Follow-up with: Shanika Gallardo ARNP [Credentialed Staff Provider] -
--- NOTE | 2018-12-26 10:17 | DISCHARGE SUMMARY ---
"Discharge Summary Admit Date: 12/19/18 Discharge Date: 12/26/18 Discharging Provider: JUAQUIN Henry Primary Care Provider: Shanika Gallardo Code Status: Do Not Attempt Resuscitation Condition at Discharge: Stable Discharge Disposition: 01 Home, Self Care - DIAGNOSES Admission Diagnoses: Sepsis UTI (urinary tract infection) Acute kidney failure Fracture of left shoulder Fall Hypothyroidism History of developmental delay Hx of macrocytic anemia Discharge Diagnoses with Status of Each Condition: Sepsis- resolved Aspiration pneumonia- 7 days of IV antibiotics, followed by 3 more days of oral antibiotics at home, no oxygen needs Dysphagia- Speech evaluation recommends altered diet, patient's caregivers preferred her to continue using sippy cup, despite medical recommendations, may need further follow up, discussion of PEG tube placement UTI (urinary tract infection)- final culture result showed likely colonized, no new dysuria Acute kidney failure- resolved Fracture of left shoulder - Not surgically repaired, ortho-surgery outpatient in 1-2 weeks for follow up imaging Fall- chronic, continue fall precautions Hypothyroidism- chronic, no changes History of developmental delay- chronic, stable Hx of macrocytic anemia- chronic, stable, dietitian recommends no new treatments Medical noncompliance with safety precautions- conflicting care-givers; some who became physically upset when PT suggested a pivot transfer. Also, to calm the patient, care-givers request constant access to sippy cup regardless of this not being medically advised. May need further investigation - HPI History of Present Illness: Surekha Braswell is a 68-year old female who resides at a community home in [place], [place] for her history of developmental delay. She also has a history of hypothyroidism, hypertension, seizure disorder, arthritis, OCD, osteoporosis, anxiety, iron deficiency anemia, and hyperlipidemia. She presented to the ED for evaluation after a fall and left shoulder injury/weakness. Upon initial exam by admitting provider, the patient could not provide any medical history because of her known developmental delay. The patient's caregiver was at the bedside, who help provide some information contributing to this document. The caregiver reports she takes care of 4 people who are live at the same home. She notes that the patient had a fall in the bathroom yesterday and since that time has been having left arm weakness. She denied any other injuries. She also admitted to increased generalized weakness over the last several days. Upon initial physical examination, the patient had left shoulder bruising, swelling, and seemed to slightly guard it when performing ROM. EMS reported hypotension with a systolic blood pressure of 70 of which he was treated with 400 ml of IV fluids. A left shoulder xray reveals impacted mild displaced left humeral neck fracture, inferior glenohumeral dislocation versus severe subluxation, in part due to underlying hemarthrosis. A urinalysis showed a likely UTI, and the culture is pending. WBC count was elevated to 17, lactic acid was 5.7, creatinine was 1.5 from 0.7 on 09/12/18. Since arriving in the ED, the patient's blood pressure improved to 112/67. The patient is otherwise hemodynamically stable. Orthopedic surgery has been consulted to evaluate with this shoulder injury and the patient was admitted to inpatient for further treatment of septic shock. - CONSULTS | PROCEDURES Consultations: Orthosurgery- Dr. Bustamante, Speech, PT - HOSPITAL COURSE Hospital Course: The patient was initially admitted for sepsis/UTI, but was also found to have an injured left shoulder of which ortho-surgery was consulted and it was determined no surgery was needed. The patient struggled with weakness, and had evidence of swallowing impairment. She was seen and evaluated by speech who gave recommendations with an altered diet. Upon discharge, the patient was in stable condition and transported back to her [facility] with her normal sedating me dications, which were not changed. She was to continue a short course of antibiotics to continue treating her pneumonia and may seek a referral from her PCP for a possible PEG tube placement. - ALLERGIES Allergies/Adverse Reactions: Allergies Allergy/AdvReac Type Severity Reaction Status Date / Time carbamazepine [From Tegretol] Allergy Unknown Verified 09/05/18 11:59 - MEDICATIONS Home Medications: Ambulatory Orders Medication Instructions Recorded Confirmed Cholecalciferol (Vitamin D3) 1,000 units PO DAILY 04/09/14 12/19/18 [Vitamin D] Lovastatin [Altoprev] 20 mg PO DAILY PM 04/09/14 12/19/18 Docusate Sodium 100 mg PO BID 10/06/17 12/19/18 Potassium Chloride [Micro-K] 10 meq PO DAILY 10/06/17 12/19/18 Acetaminophen [Tylenol] 2 tab PO Q6H PRN #30 capsule 09/05/18 12/19/18 Ascorbic Acid [Vitamin C] 500 mg PO BID 12/19/18 12/19/18 Aspirin [Adult Low Dose Aspirin EC] 81 mg PO DAILY 12/19/18 12/19/18 Divalproex [Karin Samuel] 1,000 mg PO DAILY PM 12/19/18 12/19/18 Divalproex [Karin Samuel] 500 mg PO DAILY 12/19/18 12/19/18 Levothyroxine [Synthroid] 50 mcg PO DAILY 12/19/18 12/19/18 QUEtiapine [SEROquel] 12.5 mg PO DAILY 12/19/18 12/19/18 QUEtiapine [SEROquel] 50 mg PO DAILY PM 12/19/18 12/19/18 Sertraline [Zoloft] 200 mg PO DAILY 12/19/18 12/19/18 hydrOXYzine HCl [Hydroxyzine HCl] 25 mg PO TID PRN 12/19/18 12/19/18 Amox/Clav 875/125 [Augmentin] 1 each PO Q12H #6 tablet 12/26/18 - PHYSICAL EXAM AT DISCHARGE General Appearance: positive: No acute distress, Lethargic Eyes Bilateral: positive: PERRL ENT: positive: Pharynx nml, No signs of dehydration Neck: positive: No JVD, Trachea midline Respiratory: positive: Chest non-tender, Other (diminished, bilaterally) Cardiovascular: positive: Regular rate & rhythm, No gallop, Systolic murmur Peripheral Pulses: positive: 1+ Abdomen: positive: Non-tender, Nml bowel sounds Back: positive: Nml inspection Skin: positive: No rash, Warm, Dry Extremities: positive: No pedal edema, Joint swelling (left arm, without swelling, very tender on exam) Neurologic/Psychiatric: positive: Disoriented to person, Disoriented to place, Disoriented to time, Weakness, Sensory loss, Depressed mood/affect, Other (baseline developmental delay) Reflexes: Bicep (R): 2+, Bicep (L): 0 (Not examined) - LABS Result Diagrams: 12/26/18 05:31 12/26/18 05:31 - DIAGNOSTIC IMAGING Diagnostic Imaging Results: Final report reviewed Diagnostic Imaging Results Comments: EXAM: LEFT SHOULDER RADIOGRAPHY EXAM DATE: 12/19/2018 10:40 AM IMPRESSION: 1. Impacted mildly displaced left humeral neck fracture. 2. Inferior glenohumeral dislocation versus severe subluxation, in part due to underlying hemarthrosis. EXAM: LEFT HIP RADIOGRAPHY EXAM DATE: 12/19/2018 10:40 AM IMPRESSION: No acute findings. EXAM: LEFT SHOULDER RADIOGRAPHY EXAM DATE: 12/19/2018 12:21 PM IMPRESSION: 1. Persistent left glenohumeral joint inferior dislocation/marked subluxation compared to the earlier study from 12/19/2018 without significant change in position. 2. Comminuted left humeral head and neck fracture, unchanged. EXAM: CHEST RADIOGRAPHY EXAM DATE: 12/19/2018 04:48 PM IMPRESSION: 1. There is fracture through the proximal left humerus. 2. No acute intrathoracic plain film abnormality. No evidence of lobar infiltrate or pneumot horax. EXAM: CHEST RADIOGRAPHY EXAM DATE: 12/20/2018 08:59 AM. IMPRESSION: 1. Lungs are clear. 2. Left humeral neck fracture, as before. EXAM: CHEST RADIOGRAPHY EXAM DATE: 12/22/2018 08:10 IMPRESSION: New mild to moderate bibasilar airspace disease and volume loss, right side greater than left side. EXAM: CHEST RADIOGRAPHY EXAM DATE: 12/24/2018 03:08 PM IMPRESSION: 1. Increased interstitial markings compared to prior, question developing interstitial edema. 2. Improved opacities in the left lower lung, worsened opacities in the right lower lung. A right pleural effusion is suspected, probably similar to prior. - SEPSIS Current Stage of Sepsis: Resolved - FOLLOW UP Follow Up: Disposition: Home to previous living facility Prescriptions: Amox/Clav 875/125 [Augmentin] 1 each PO Q12H #6 tablet Additional Instructions or Follow Up instructions: You were admitted after falling and injuring your left arm. You were also found to have a type of pneumonia called aspiration. Please continue an antibiotic for the next 3 days for this condition. You underwent a speech swallow study and the following recommendations have been given today: 1. 1:1 supervision for meals' 2. diet texture is moist purees and nectar thick liquids 3. sitting bolt upright for all intake 4. do not leave unattended with sippy cup 5. meds crushed in applesauce 6. keep sitting up for 30 minutes after the meal A urine test showed that this sample was colonized, meaning, these bacteria are normally found in your urine. You may be able to lessen the chances of this type of pneumonia in the future wi th a feeding tube called a PEG, which bypasses your swallowing to get nutrition. Follow up with orthopedics outpatient in the next 1-2 weeks for follow up x- rays, wear the sling as needed for comfort. Physical therapy recommends; Physical Therapy for assessment of patient's ability as compared to her expected baseline. Recommend home with higher level of care or skilled long-term placement at a assisted living facility. Please follow up with your PCP in the next week for this referral. - TIME SPENT Time Spent in Discharge (Minutes): 45"
[2018-12-26 11:30] VITALS: BP 126/74
[2018-12-27 05:18] LABS: JAK2 COMMENT NOT DETECTED; JAK2 SPECIMEN TYPE BLOOD; JAK2 V617F MUTATION LEVEL 0 % mutation
== END 2018-12-26 14:10 | disposition home or self-care (01) | DRG 871 ==
LOC: EDUNIT# → ED 09:51 → MS3 12:43 → MS2 12-25 17:20
PROVIDERS: ADMIT Nurse Practitioner Gerontology; ATTEND Nurse Practitioner
PROC: 30233N1 Transfusion of Nonautologous Red Blood Cells into Peripheral Vein, Percutaneous Approach (ICD-10-PCS; principal; 2018-12-20)
DX: A41.9 Sepsis, unspecified organism (principal); J69.0 Pneumonitis due to inhalation of food and vomit; S42.292A Other displaced fracture of upper end of left humerus, initial encounter for closed fracture; M25.552 Pain in left hip; N17.9 Acute kidney failure, unspecified; Y92.199 Unspecified place in other specified residential institution as the place of occurrence of the external cause; F99 Mental disorder, not otherwise specified; N39.0 Urinary tract infection, site not specified; M80.022A Age-related osteoporosis with current pathological fracture, left humerus, initial encounter for fracture; W19.XXXA Unspecified fall, initial encounter; R32 Unspecified urinary incontinence; Y92.192 Bathroom in other specified residential institution as the place of occurrence of the external cause; R65.20 Severe sepsis without septic shock; F80.2 Mixed receptive-expressive language disorder; R13.10 Dysphagia, unspecified; E86.0 Dehydration; D53.9 Nutritional anemia, unspecified; I10 Essential (primary) hypertension; E03.9 Hypothyroidism, unspecified; G40.909 Epilepsy, unspecified, not intractable, without status epilepticus; F42.9 Obsessive-compulsive disorder, unspecified; F41.9 Anxiety disorder, unspecified; E78.5 Hyperlipidemia, unspecified; I95.9 Hypotension, unspecified; R09.02 Hypoxemia; Z66 Do not resuscitate; Z91.19 Patient's noncompliance with other medical treatment and regimen; Z79.899 Other long term (current) drug therapy; Z79.82 Long term (current) use of aspirin; Z86.2 Personal history of diseases of the blood and blood-forming organs and certain disorders involving the immune mechanism
CPT/HCPCS: 23675; 36415; 51701; 71045; 73030; 73502; 80048; 80053; 80164; 81001; 81270; 82247; 82248; 82272; 82533; 82607; 82728; 83010; 83540; 83605; 83615; 83690; 83735; 83880; 84443; 84466; 84484; 85014; 85018; 85025; 85044; 85379; 86850; 86900; 86901; 86920; 87040; 87086; 92610; 93005; 93306; 96374; 96375; 97163; 97530; 99283; 99284; A6250; A9270; J1650; J2060; P9016; 81003

== ENCOUNTER 2019-01-03 08:48 | Outpatient (CLI) | payer MEDICARE, MEDICAID | END 2019-01-03 08:49 | disposition short-term general hospital (02) | LOC: EMS 08:48 | PROVIDERS: ATTEND Surgery | DX: M25.512 Pain in left shoulder (principal); R41.82 Altered mental status, unspecified; M54.2 Cervicalgia; R10.9 Unspecified abdominal pain; R07.9 Chest pain, unspecified | CPT/HCPCS: A0425; A0429; A0888 ==